=== PATIENT | male | born 1930 | race Caucasian/White ===

== ENCOUNTER 2016-08-17 12:10 | Observation (INO) | payer OTHER ==
--- NOTE | 2016-08-17 12:36 | PDOC ---
History of Present Illness - General Chief Complaint: Syncope/Near Syncope Stated Complaint: NEAR SYNCOPE Time Seen by Provider: 08/17/16 12:17 History Source: Patient Exam Limitations: No Limitations - History of Present Illness Initial Comments: 08/17/16 12:30 Patient was brought in by ambulance, called to [place] where patient was in what he reports as a hot [employer] / [place] when he became dizzy and had a syncopal versus near syncopal episode. Patient was incontinent of bladder and bowel during this episode. Patient denies complete loss of consciousness although reports from EMS stated he did have an LOC. Patient received emergency department alert and oriented 3. Denies chest pain or palpitations, denies nausea or vomiting. Bowel movement within normal recently. Was not aware that he had been incontinent. Denies numbness or tingling to hands or feet, denies any headache or visual changes, able to answer all orientation questions appropriately. Timing/Duration: 1-3 hours Severity: moderate Associated Symptoms: reports: denies symptoms, diaphoresis, syncope. denies: chest pain, cough, fever/chills, headaches, loss of appetite, malaise, nausea/ vomiting, seizure, shortness of breath Past History - Travel Traveled outside of the country in the last 30 days: No Close contact w/someone who was outside of country & ill: No - Past Medical History Allergies/Adverse Reactions: Allergies Allergy/AdvReac Type Severity Reaction Status Date / Time No Known Drug Allergies Allergy Verified 04/08/13 10:45 Home Medications: Ambulatory Orders Aspirin Coated [Ecotrin -] 81 mg PO DAILY 01/14/12 Lisinopril [Prinivil] 10 mg PO DAILY 01/14/12 Metoprolol Succinate [Toprol XL -] 25 mg PO DAILY 01/14/12 Pravastatin Sodium 20 mg PO HS 01/14/12 Clopidogrel Bisulfate [Plavix -] 75 mg PO DAILY #1 09/20/12 Omeprazole [Prilosec (RX)] 20 mg PO DAILY #1 capsule 09/20/12 Silodosin [Rapaflo] 4 mg PO DAILY 04/08/13 Aspirin Coated [Ecotrin -] 81 mg PO DAILY #1 tablet.ec 04/13/13 Clopidogrel Bisulfate [Plavix -] 75 mg PO DAILY #1 tablet 04/13/13 Lisinopril [Prinivil] 10 mg PO DAILY #1 tablet 04/13/13 Metoprolol Succinate [Toprol XL -] 25 mg PO DAILY #1 tab.sr.24h 04/13/13 Pravastatin Sodium [Pravachol -] 20 mg PO HS #7 tablet 04/13/13 Aspirin [ASA -] 81 mg PO DAILY 08/30/15 Metoprolol Succinate [Toprol Xl -] 25 mg PO DAILY 08/30/15 Pravastatin Sodium [Pravachol (Nf)] 20 mg PO HS 09/08/15 Omeprazole Magnesium [Prilosec] 20 mg PO DAILY 08/17/16 HTN: Yes Hypercholesterolemia: Yes - Surgical History Abdominal Surgery: Yes - Psycho/Social/Smoking Cessation Hx Anxiety: No Suicidal Ideation: No Smoking History: Never smoked Have you smoked in the past 12 months: No Hx Alcohol Use: No Drug/Substance Use Hx: No Substance Use Type: None Review of Systems - Review of Systems Able to Perform ROS?: Yes Is the patient limited Welsh proficient: Yes Constitutional: Yes: See HPI, Malaise. No: Symptoms Reported HEENTM: Yes: See HPI, Eye Pain. No: Symptoms Reported Respiratory: Yes: Symptoms reported, See HPI Cardiac (ROS): Yes: See HPI. No: Symptoms Reported, Chest Pain ABD/GI: Yes: Symptoms Reported, See HPI, Diarrhea. No: Nausea : Yes: See HPI. No: Symptoms Reported Musculoskeletal: No: Symptoms Reported Integumentary: Yes: Symptoms Reported Neurological: Yes: Symptoms reported, See HPI, Weakness. No: Headache, Numbness Psychiatric: No: Anxiety All Other Systems: Reviewed and Negative *Physical Exam - Physical Exam General Appearance: Yes: Nourished, Appropriately Dressed, Apparent Distress, Mild Distress, Moderate Distress HEENT: positive: PHANI, Normal ENT Inspection, TMs Normal, Pharynx Normal. negative: Nasal Congestion, Rhinorrhea Neck: positive: Supple. negative: Tender, Lymphadenopathy (R), Lymphadenopathy (L) Respiratory/Chest: positive: Lungs Clear, Normal Breath Sounds. negative: Accessory Muscle Use, Rapid RR, Crackles, Wheezing Cardiovascular: positive: Regular Rhythm, Regular Rate Gastrointestinal/Abdominal: positive: Normal Bowel Sounds, Soft. negative: Tender, Organomegaly, Distended, Guarding, Rebound, Hepatomegaly Musculoskeletal: positive: Normal Inspection. 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 Will obtain labs, EKG, x-rays and CAT scan of head, patient understands will help probable need for admission 08/17/16 17:10 Patient resting quietly in bed, laboratory work returned and relatively normal including CAT scans EKGs and chest x-ray. Discussed this case with Dr. Penaloza who wants patient admitted in to be evaluated by neurology and cardiology. Patient and family has been updated to plan, understands that there are no admission beds placements in the hospital currently and is resting quietly in the holding area *DC/Admit/Observation/Transfer Diagnosis at time of Disposition: Syncope - Discharge Dispostion Condition at time of disposition: Good Admit: Yes
[2016-08-17 13:01] LABS: BASOPHIL 0.5 % (0-2.0); EOSINOPHIL 1.9 % (0-4.5); MCH 33.1 pg (25.7-33.7); MCHC 33.8 g/dl (32.0-35.9); MEAN CELL VOLUME 97.8 fl (80-96); MEAN PLT VOLUME 8.1 fl (7.5-11.1); NEUTROPHILS 75.8 % (42.8-82.8); PLATELET COUNT 222 K/MM3 (134-434); RDW 13.3 % (11.9-15.9)
[2016-08-17 13:16] LABS: INR 1.16 (0.82-1.09); PROTHROMBIN TIME (PATIENT) 12.8 SEC (9.98-11.88)
[2016-08-17 13:33] LABS: ALBUMIN 3.5 g/dl (3.4-5.0); ANION GAP 10 (8-16); CALCIUM 8.1 mg/dL (8.5-10.1); CO2 26 mmol/L (21-32); COCKROFT - GAULT 78.39; CREATININE 0.9 mg/dL (0.7-1.3); GLUCOSE,RANDOM 109 mg/dL (74-106); SGOT/AST 13 U/L (15-37); SGPT/ALT 23 U/L (12-78)
[2016-08-17 13:37] LABS: ALK PHOS 60 U/L (45-117); BILIRUBIN,TOTAL 0.7 mg/dL (0.2-1.0); TOT PROT 6.3 g/dl (6.4-8.2); TROPONIN I < 0.02 ng/ml (0.00-0.05)
--- NOTE | 2016-08-17 17:15 | EKG ---
Test Reason : Blood Pressure : / mmHG Vent. Rate : 056 BPM Atrial Rate : 056 BPM P-R Int : 174 ms QRS Dur : 154 ms QT Int : 494 ms P-R-T Axes : 049 -30 094 degrees QTc Int : 476 ms SINUS BRADYCARDIA LEFT AXIS DEVIATION LEFT BUNDLE BRANCH BLOCK ABNORMAL ECG WHEN COMPARED WITH ECG OF 30-AUG-2015 17:35, NO SIGNIFICANT CHANGE WAS FOUND Confirmed by JOHN OSBORN MD ([id number]) on 08/17/2016 5:15:17 PM Referred By: Confirmed By:JOHN OSBORN MD
[2016-08-17] MEDS: DEXTROSE 5%-0.45% SALINE 1,000 ML IV SCH (17:26)
[2016-08-17 20:20] LABS: TROPONIN I < 0.02 ng/ml (0.00-0.05)
[2016-08-18 07:12] LABS: BASOPHIL 0.6 % (0-2.0); EOSINOPHIL 2.2 % (0-4.5); MCH 33.4 pg (25.7-33.7); MCHC 34.2 g/dl (32.0-35.9); MEAN CELL VOLUME 97.5 fl (80-96); MEAN PLT VOLUME 8.5 fl (7.5-11.1); NEUTROPHILS 71.6 % (42.8-82.8); PLATELET COUNT 233 K/MM3 (134-434); RDW 13.2 % (11.9-15.9); WHITE BLOOD COUNT 7.6 K/mm3 (4.0-10.0)
[2016-08-18 07:40] LABS: ALBUMIN 3.4 g/dl (3.4-5.0); ANION GAP 11 (8-16); CALCIUM 8.5 mg/dL (8.5-10.1); CO2 25 mmol/L (21-32); GLUCOSE,RANDOM 103 mg/dL (74-106)
[2016-08-18 07:43] LABS: ALK PHOS 60 U/L (45-117); BILIRUBIN,TOTAL 0.6 mg/dL (0.2-1.0); COCKROFT - GAULT 78.39; CREATININE 0.9 mg/dL (0.7-1.3); SGOT/AST 12 U/L (15-37); SGPT/ALT 20 U/L (12-78); TOT PROT 6.2 g/dl (6.4-8.2)
--- NOTE | 2016-08-18 09:03 | CON.CARD ---
Consult Consult Specialty:: cardio Referred by:: ovi dubois Reason for Consultation:: syncope - History of Present Illness Chief Complaint: same History of Present Illness: 86 yo male here with syncope while at [employer]. recalls feeling very [employer] b/c large crowd yesterday. around 11:30 am felt generalized weakness and mild LH while standing--sat down and then onlookers called EMS. he doesn't think he passed out briefly at any time. denies any new neuro deficits. denies cp, sob, palpitations. ate usual breakfast (cereal, toast, small cup coffee) with no fluids otherwise in am never happened to him before. he lost BM and urine in underwear--has had accident or near-accident with incontinence at least once in past, never with associated presyncope or MS changes. feels well currently PMH: HTN HPL no cigs - Alcohol/Substance Use Hx Alcohol Use: No - Smoking History Smoking history: Never smoked Have you smoked in the past 12 months: No Home Medications - Allergies Allergies/Adverse Reactions: Allergies Allergy/AdvReac Type Severity Reaction Status Date / Time No Known Allergies Allergy Unverified 08/17/16 12:17 - Home Medications Home Medications: Ambulatory Orders Aspirin [ASA -] 81 mg PO DAILY 08/30/15 Metoprolol Succinate [Toprol Xl -] 25 mg PO DAILY 08/30/15 Pravastatin Sodium [Pravachol (Nf)] 20 mg PO HS 09/08/15 Omeprazole Magnesium [Prilosec] 20 mg PO DAILY 08/17/16 Family Disease History - Family Disease History Family History: Denies (no cmp) Review of Systems - Review of Systems Constitutional: denies: Chills, Fever Eyes: denies: Eye Pain HENT: denies: Nasal Congestion Neck: denies: Stiffness Cardiovascular: denies: Palpitations Respiratory: denies: Orthopnea, PND Gastrointestinal: denies: Diarrhea, Rectal Bleeding Genitourinary: denies: Burning, Hematuria Musculoskeletal: denies: Muscle Pain Integumentary: denies: Rash Neurological: denies: Numbness, Seizure Endocrine: denies: Excessive Sweating Hematology/Lymphatic: denies: Excessive Bleeding Vital Signs: Vital Signs Temperature 98.1 F 08/18/16 02:07 Pulse Rate 69 08/18/16 02:07 Respiratory Rate 16 08/18/16 02:07 Blood Pressure 135/54 08/18/16 02:07 O2 Sat by Pulse Oximetry (%) 100 08/18/16 02:07 Constitutional: Yes: Well Nourished, No Distress Eyes: No: Sclera Icterus HENT: No: Nasal Congestion Neck: No: Decreased ROM Respiratory: Yes: CTA Bilaterally. No: Accessory Muscle Use, Rales, Wheezes Gastrointestinal: Yes: Normal Bowel Sounds. No: Distention, Hepatomegaly, Palpable Mass, Tenderness Cardiovascular: Yes: Regular Rate and Rhythm JVD: No Carotid Bruit: No PMI: Non-Displaced Heart Sounds: Yes: S1, S2. No: Gallop Murmur: No: Systolic Murmur, Diastolic Murmur Musculoskeletal: Yes: Other (No kyphosis) Extremities: No: Cold, Cyanosis Edema: No Peripheral Pulses: 2+ Left Carotid, 2+ Right Carotid, 2+ Left Doralis Pedis, 2+ Right Dorsalis Pedis Integumentary: No: Jaundice Neurological: Yes: Alert, Oriented (x3) Psychiatric: No: Agitated - Other Data Labs, Other Data: CBC, BMP 08/18/16 06:20 08/18/16 06:20 INR, PTT INR 1.16 (0.82-1.09) H 08/17/16 12:33 Troponin, BNP 08/17/16 19:30 Troponin I < 0.02 Troponin, BNP 08/17/16 19:30 Troponin I < 0.02 Laboratory Tests 08/17/16 08/17/16 08/18/16 12:33 19:30 06:20 WBC Hgb Plt Count Sodium 136 Potassium 4.1 Carbon Dioxide 25 BUN 11 Creatinine 0.9 AST 12 L ALT 20 Creatine Kinase 78 70 Troponin I < 0.02 < 0.02 08/18/16 06:20 WBC 7.6 Hgb 13.4 Plt Count 233 Sodium Potassium Carbon Dioxide BUN Creatinine AST ALT Creatine Kinase Troponin I ekg: sinus isai 50s, LBBB (unchanged vs prior) Assessment/Plan syncope: -trop neg x 2 -LBBB on ekg, old (no change vs 2016) -hot [employer] setting, no fluids but + coffee earlier that day--highly suspicious for vasovagal in [place] -no seizure stigmata though BM/urine incontinence noted--? 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
[2016-08-18] MEDS ORDERED: ASPIRIN 81 MG CHEWABLE TABLETS PO SCH (10:00)
[2016-08-18] MEDS: PANTOPRAZOLE 20 MG TABLET (FP) PO SCH (10:00)
[2016-08-18] MEDS: ASPIRIN COATED 81 MG TABLET.EC PO SCH (10:00)
[2016-08-18] MEDS ORDERED: PANTOPRAZOLE 40 MG TABLET (FP) ONE (10:41)
[2016-08-18 16:26] VITALS: BMI 26.9
[2016-08-18] MEDS: DEXTROSE 5%-0.45% SALINE 1,000 ML IV SCH (16:43)
--- NOTE | 2016-08-18 17:00 | HP ---
Admitting History and Physical - Admission Chief Complaint: pt had episode of light headedness while standing in [employer]. it was hot at that time as he stated he remembered every thing. denied any other complaints History Source: Patient, Family Member Limitations to Obtaining History: No Limitations - Past Medical History Cardiovascular: Yes: HTN - Smoking History Smoking history: Never smoked Have you smoked in the past 12 months: No - Alcohol/Substance Use Hx Alcohol Use: No Home Medications - Allergies Allergies/Adverse Reactions: Allergies Allergy/AdvReac Type Severity Reaction Status Date / Time No Known Drug Allergies Allergy Verified 04/08/13 10:45 - Home Medications Home Medications: Ambulatory Orders Aspirin Coated [Ecotrin -] 81 mg PO DAILY 01/14/12 Lisinopril [Prinivil] 10 mg PO DAILY 01/14/12 Metoprolol Succinate [Toprol XL -] 25 mg PO DAILY 01/14/12 Pravastatin Sodium 20 mg PO HS 01/14/12 Clopidogrel Bisulfate [Plavix -] 75 mg PO DAILY #1 09/20/12 Omeprazole [Prilosec (RX)] 20 mg PO DAILY #1 capsule 09/20/12 Silodosin [Rapaflo] 4 mg PO DAILY 04/08/13 Aspirin Coated [Ecotrin -] 81 mg PO DAILY #1 tablet.ec 04/13/13 Clopidogrel Bisulfate [Plavix -] 75 mg PO DAILY #1 tablet 04/13/13 Lisinopril [Prinivil] 10 mg PO DAILY #1 tablet 04/13/13 Metoprolol Succinate [Toprol XL -] 25 mg PO DAILY #1 tab.sr.24h 04/13/13 Pravastatin Sodium [Pravachol -] 20 mg PO HS #7 tablet 04/13/13 Aspirin [ASA -] 81 mg PO DAILY 08/30/15 Metoprolol Succinate [Toprol Xl -] 25 mg PO DAILY 08/30/15 Pravastatin Sodium [Pravachol (Nf)] 20 mg PO HS 09/08/15 Omeprazole Magnesium [Prilosec] 20 mg PO DAILY 08/17/16 Family Disease History - Family Disease History Family History: Unremarkable Review of Systems - Review of Systems Constitutional: reports: No Symptoms Physical Examination Vital Signs: Vital Signs Temperature 97.7 F 08/18/16 15:50 Pulse Rate 73 08/18/16 15:50 Respiratory Rate 18 08/18/16 15:50 Blood Pressure 137/75 08/18/16 15:50 O2 Sat by Pulse Oximetry (%) 97 08/18/16 15:50 Assessment/Plan neuro to see pt today d/c in am changed bp med so that bp and hr does not drop
--- NOTE | 2016-08-18 17:32 | CON.NEURO ---
Consult Consult Specialty:: Neurology Referred by:: Dr. Chino Cardenas Reason for Consultation:: Patient had near syncope in [place] - History of Present Illness Chief Complaint: I was in [employer] and felt ill History of Present Illness: Patient was in [employer] on Thursday and recalls feeling hot. He says that he was standing, felt woozy and that his legs were wobbly and fell to his chair and felt himself evacuate fecal matter. He felt it coming out and recalls feeling embarrassed. He did not lose consciousness. EMS was called and by the time he arrived in the ER he felt better. He had no sensory or motor disturbance. he had one prior occurrence similar several years ago. He has felt fine since. - Past Medical History Cardio/Vascular: Yes: HTN - Alcohol/Substance Use Hx Alcohol Use: No - Smoking History Smoking history: Never smoked Have you smoked in the past 12 months: No Home Medications - Allergies Allergies/Adverse Reactions: Allergies Allergy/AdvReac Type Severity Reaction Status Date / Time No Known Drug Allergies Allergy Verified 04/08/13 10:45 - Home Medications Home Medications: Ambulatory Orders Aspirin Coated [Ecotrin -] 81 mg PO DAILY 01/14/12 Lisinopril [Prinivil] 10 mg PO DAILY 01/14/12 Metoprolol Succinate [Toprol XL -] 25 mg PO DAILY 01/14/12 Pravastatin Sodium 20 mg PO HS 01/14/12 Clopidogrel Bisulfate [Plavix -] 75 mg PO DAILY #1 09/20/12 Omeprazole [Prilosec (RX)] 20 mg PO DAILY #1 capsule 09/20/12 Silodosin [Rapaflo] 4 mg PO DAILY 04/08/13 Aspirin Coated [Ecotrin -] 81 mg PO DAILY #1 tablet.ec 04/13/13 Clopidogrel Bisulfate [Plavix -] 75 mg PO DAILY #1 tablet 04/13/13 Lisinopril [Prinivil] 10 mg PO DAILY #1 tablet 04/13/13 Metoprolol Succinate [Toprol XL -] 25 mg PO DAILY #1 tab.sr.24h 04/13/13 Pravastatin Sodium [Pravachol -] 20 mg PO HS #7 tablet 04/13/13 Aspirin [ASA -] 81 mg PO DAILY 08/30/15 Metoprolol Succinate [Toprol Xl -] 25 mg PO DAILY 08/30/15 Pravastatin Sodium [Pravachol (Nf)] 20 mg PO HS 09/08/15 Omeprazole Magnesium [Prilosec] 20 mg PO DAILY 08/17/16 Review of Systems - Review of Systems Constitutional: reports: No Symptoms Eyes: reports: No Symptoms HENT: reports: No Symptoms Physical Exam-Neuro Vital Signs: Vital Signs Temperature 97.7 F 08/18/16 15:50 Pulse Rate 73 08/18/16 15:50 Respiratory Rate 18 08/18/16 15:50 Blood Pressure 137/75 08/18/16 15:50 O2 Sat by Pulse Oximetry (%) 97 08/18/16 15:50 Constitutional: Yes: Well Nourished, No Distress, Calm Labs: INR, PTT INR 1.16 (0.82-1.09) H 08/17/16 12:33 - Neuro Exam Cranial Nerves II-XII Intact: Yes DTR's: 0 Left Achilles, 0 Right Achilles, 2+ Left Bicep, 2+ Right Bicep, 2+ Left Tricep, 2+ Right Tricep, 2+ Left Brachioradialis, 2+ Right Brachioradialis Babinski: Absent Response to light touch: Normal Response to pain prick: Normal Coordination: Normal: Finger to Nose (All normal), Heel to Arora, Precision Finger Tap, Pronator Drift Motor Strength: 5/5: Left Arm, Right Arm, Left Leg, Right Leg Gait: Normal NIH Stroke Scale - Total Score NIH Stroke Scale Score: 0 Imaging - Results Cat Scan: Report Reviewed (unremarkable Unable to view image on PACS), Image Reviewed Problem List - Problems (1) Syncope Assessment/Plan: Sounds like near syncope rather than TIA or seizure. Head CT normal and I wouldn't pursue further neurological workup at this time. I have no objection to discharge at this time. Code(s): R55 - SYNCOPE AND COLLAPSE Assessment/Plan As above, I don't think that he had a seizure or TIA/cerebrovascular event and I have no objection to discharge from the hospital at this time. I don't think further neurologic evaluation, beyond the initial Head CT is indicated at this time. Thanks
[2016-08-19 09:51] VITALS: BP 148/82; PULSE 74; TEMP 98
[2016-08-19] MEDS: ASPIRIN COATED 81 MG TABLET.EC PO SCH (09:57)
[2016-08-19] MEDS: PANTOPRAZOLE 20 MG TABLET (FP) PO SCH (09:57)
[2016-08-19] MEDS ORDERED: PANTOPRAZOLE 20 MG TABLET (FP) PO SCH (10:00)
[2016-08-19] MEDS ORDERED: amLODIPine BESYLATE 2.5 MG TABLET (FP) PO SCH (10:00)
--- NOTE | 2016-08-19 10:29 | DS ---
Physical Examination Vital Signs: Vital Signs Temperature 98 F 08/19/16 09:50 Pulse Rate 74 08/19/16 09:50 Respiratory Rate 14 08/19/16 09:50 Blood Pressure 148/82 08/19/16 09:50 O2 Sat by Pulse Oximetry (%) 98 08/19/16 07:32 Constitutional: Yes: Well Nourished Eyes: Yes: WNL HENT: Yes: WNL Neck: Yes: WNL Cardiovascular: Yes: WNL Respiratory: Yes: WNL Gastrointestinal: Yes: WNL ...Rectal Exam: Yes: Deferred Renal/: Yes: WNL Breast(s): Yes: WNL Musculoskeletal: Yes: WNL Extremities: Yes: WNL Edema: No Integumentary: Yes: WNL Neurological: Yes: Oriented ...Motor Strength: WNL Psychiatric: Yes: Oriented Discharge Summary Reason For Visit: PRE-SYNCOPE Current Active Problems Syncope (Acute) - Instructions Referrals: Chino Cardenas MD [Primary Care Provider] - - Home Medications Comprehensive Discharge Medication List: Ambulatory Orders Aspirin Coated [Ecotrin -] 81 mg PO DAILY 01/14/12 Lisinopril [Prinivil] 10 mg PO DAILY 01/14/12 Metoprolol Succinate [Toprol XL -] 25 mg PO DAILY 01/14/12 Pravastatin Sodium 20 mg PO HS 01/14/12 Clopidogrel Bisulfate [Plavix -] 75 mg PO DAILY #1 09/20/12 Omeprazole [Prilosec (RX)] 20 mg PO DAILY #1 capsule 09/20/12 Silodosin [Rapaflo] 4 mg PO DAILY 04/08/13 Aspirin Coated [Ecotrin -] 81 mg PO DAILY #1 tablet.ec 04/13/13 Clopidogrel Bisulfate [Plavix -] 75 mg PO DAILY #1 tablet 04/13/13 Lisinopril [Prinivil] 10 mg PO DAILY #1 tablet 04/13/13 Metoprolol Succinate [Toprol XL -] 25 mg PO DAILY #1 tab.sr.24h 04/13/13 Pravastatin Sodium [Pravachol -] 20 mg PO HS #7 tablet 04/13/13 Aspirin [ASA -] 81 mg PO DAILY 08/30/15 Metoprolol Succinate [Toprol Xl -] 25 mg PO DAILY 08/30/15 Pravastatin Sodium [Pravachol (Nf)] 20 mg PO HS 09/08/15 Omeprazole Magnesium [Prilosec] 20 mg PO DAILY 08/17/16
== END 2016-08-19 12:00 | disposition home or self-care (01) ==
LOC: JER 12:10 → JERBED 14:42 → INTOOBSV 14:42 → MERGE 14:42 → UNDOADMOB 14:42 → JERBED 08-18 12:59 → J4W 08-18 14:53
PROVIDERS: ADMIT Internal Medicine; ATTEND Family Medicine
DX: R55 Syncope and collapse (principal); I10 Essential (primary) hypertension; E78.00 Pure hypercholesterolemia, unspecified; Z79.52 Long term (current) use of systemic steroids; I44.7 Left bundle-branch block, unspecified
CPT/HCPCS: 36415; 70450-TC; 71010-TC; 80053; 82550; 84484; 85025; 85610; 93005; 93010; 93306-TC; 99285-25; G0378

== ENCOUNTER 2016-12-02 16:27 | Inpatient (IN) | payer OTHER ==
--- NOTE | 2016-12-02 18:07 | PDOC ---
History of Present Illness - History of Present Illness Initial Comments: 12/02/16 19:00 Patient is an 86 year old male with significant medical hx of arthritis, HTN, HLD, brought in by EMS, who is presenting to the ED with complaint of pervasive joint pain for one week. The patient complains of pain to his back, hips, knees and elbows. He reports feeling stiff and endorses having difficulty moving his joints. The patient states hes taken tylenol for pain and he is requesting stronger pain medication. Denies any recent trauma or heavy lifting. Patient lives at home; he is ambulatory and uses a walker and a cane. Patient is accompanied by family members who report that the patient was very sick three days ago with heavy diarrhea. 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) CHF: No Dementia: No Diabetes: No GI Disorders: Yes (ACID REFLUX) Disorders: No HTN: Yes Hypercholesterolemia: Yes Liver Disease: No Seizures: No Thyroid Disease: No - Surgical History Abdominal Surgery: Yes Appendectomy: No Cardiac Surgery: Yes (STENT) Cholecystectomy: No Lung Surgery: No Neurologic Surgery: No Orthopedic Surgery: Yes (TOTAL KNEE REPLACEMENT) - Psycho/Social/Smoking Cessation Hx Anxiety: No Suicidal Ideation: No Smoking History: Never smoked Have you smoked in the past 12 months: No If you are a former smoker, when did you quit?: 35YRS AGO Information on smoking cessation initiated: No Hx Alcohol Use: No Drug/Substance Use Hx: No Substance Use Type: None Hx Substance Use Treatment: No <Corinna Martinez - Last Filed: 12/03/16 02:37> - Past Medical History Allergies/Adverse Reactions: Allergies Allergy/AdvReac Type Severity Reaction Status Date / Time No Known Drug Allergies Allergy Verified 04/08/13 10:45 Home Medications: Ambulatory Orders Aspirin Coated [Ecotrin -] 81 mg PO DAILY 01/14/12 Lisinopril [Prinivil] 10 mg PO DAILY 01/14/12 Omeprazole [Prilosec (RX)] 20 mg PO DAILY #1 capsule 09/20/12 Metoprolol Succinate [Toprol XL -] 25 mg PO DAILY #1 tab.sr.24h 04/13/13 Pravastatin Sodium [Pravachol (Nf)] 20 mg PO HS 09/08/15 Review of Systems - Review of Systems Comments:: 12/02/16 19:00 CONSTITUTIONAL: Absent: fever, chills, diaphoresis, generalized weakness, malaise, loss of appetite HEENT: Absent: rhinorrhea, nasal congestion, throat pain, throat swelling, difficulty swallowing, mouth swelling, ear pain, eye pain, visual changes CARDIOVASCULAR: Absent: chest pain, syncope, palpitations, irregular heart rate, lightheadedness , peripheral edema RESPIRATORY: Absent: cough, shortness of breath, dyspnea with exertion, orthopnea, wheezing, stridor, hemoptysis GASTROINTESTINAL: Present: diarrhea Absent: abdominal pain, abdominal distension, nausea, vomiting, constipation, melena, hematochezia GENITOURINARY: Absent: dysuria, frequency, urgency, hesitancy, hematuria, flank pain, genital pain MUSCULOSKELETAL: Present: joint pain to hips, elbows, knees, and back Absent: myalgia, joint swelling SKIN: Absent: rash, itching, pallor HEMATOLOGIC/IMMUNOLOGIC: Absent: easy bleeding, easy bruising, lymphadenopathy, frequent infections ENDOCRINE: Absent: unexplained weight gain, unexplained weight loss, heat intolerance, cold intolerance NEUROLOGIC: Absent: headache, focal weakness or paresthesia, dizziness, unsteady gait, seizure, mental status changes, bladder or bowel incontinence. PSYCHIATRIC: Absent: anxiety, depression, suicidal or homicidal ideation, hallucinations <Mya Olguin - Last Filed: 12/03/16 00:39> *Physical Exam - Vital Signs Last Vital Signs Temp Pulse Resp BP Pulse Ox 98.5 F 85 22 140/86 100 12/02/16 16:39 12/02/16 16:36 12/02/16 16:36 12/02/16 16:36 12/02/16 16:36 - Physical Exam Comments: 12/02/16 19:02 GENERAL: Well developed, well nourished. Awake and alert. No acute distress. HEENT: Normocephalic, atraumatic. PERRLA, EOMI. No conjunctival pallor. Sclera are non- icteric. Moist mucous membranes. Oropharynx is clear. NECK: Supple. Full ROM. No JVD. Carotid pulses 2+ and symmetric, without bruits. No thyromegaly. No lymphadenopathy. CARDIOVASCULAR: Regular rate and rhythm. No murmurs, rubs, or gallops. Distal pulses are 2+ and symmetric. PULMONARY: No evidence of respiratory distress. Lungs clear to auscultation bilaterally. No wheezing, rales or rhonchi. ABDOMINAL: Soft. Non-tender. Non-distended. No rebound or guarding. No organomegaly. Normoactive bowel sounds. MUSCULOSKELETAL: Limited ROM at joints due to pain. No bony deformities or tenderness. No CVA tenderness. EXTREMITIES: No cyanosis. No clubbing. No edema. No calf tenderness. SKIN: Warm and dry. Normal capillary refill. No rashes. No jaundice. NEUROLOGICAL: AAO x 3. Conversant. Cranial nerves 2-12 intact. Normal speech. PSYCHIATRIC: Cooperative. Good eye contact. Appropriate mood and affect. <Mya Olguin - Last Filed: 12/03/16 00:39> - Vital Signs Last Vital Signs Temp Pulse Resp BP Pulse Ox 98.5 F 85 22 140/86 100 12/02/16 16:39 12/02/16 16:36 12/02/16 16:36 12/02/16 16:36 12/02/16 16:36 <Corinna Martinez - Last Filed: 12/03/16 02:37> Heart Score/ECG Review #1 12/02/16 19:04 Normal sinus rhythm at 93 bpm Left axis deviation Left bundle branch block Abnormal ECG <Mya Olguin - Last Filed: 12/03/16 00:39> ED Treatment Course - LABORATORY CBC & Chemistry Diagram: 12/02/16 18:38 12/02/16 18:38 - RADIOLOGY Radiograph Interpretation: 12/02/16 22:23 Chest X-Ray Impression: No acute disease. Reported By: Stephan Womack MD 12/03/16 00:39 Director Digital Advertising: (lori) Report Date: 12/02/2016 23:34:00 Report Status: Preliminary Begin of Report Content Referring Physician: Corinna Martinez Patient Name: Joon Bowens THIS IS A PRELIMINARY REPORT FROM [facility] EXAM: CT abdomen and pelvis without contrast IMAGES: 524 INDICATION: Abdominal pain DATE OF SERVICE: 2016-12-02 23:34:12.0 COMPARISON: none FINDINGS: Bibasilar dependent atelectasis is noted. The visualized cardiac chambers are normal size and configuration. Coronary calcifications. A tiny gallstones but no gallbladder inflammation or biliary duct dilation. Normal unenhanced liver, pancreas, spleen, adrenal glands and kidneys. The stomach and small bowel are normal. There is diffuse liquids without colonic wall thickening , suggesting a diarrheal illness. There is no aortic aneurysm. There is no significant retroperitoneal lymphadenopathy. Small fat containing umbilical hernia is noted. There is an appendicular, but no evidence of appendicitis. The urinary bladder and prostate gland are normal. No pelvic free fluid is identified. There is no significant pelvic lymphadenopathy. IMPRESSION: Possible diarrheal illness without colonic wall inflammation Tiny gallstones. THIS DOCUMENT HAS BEEN ELECTRONICALLY SIGNED Chadwick Cuevas MD 12/03/2016 00:20 SANJUANA Ross. Please call Imaging Manufacturing Team Member [phone] ([phone]) with questions. End of Report Content - Medications Given in the ED: ED Medications Discontinued Medications Generic Name Dose Route Start Last Admin Trade Name Freq PRN Reason Stop Dose Admin Morphine Sulfate 2 mg 12/02/16 18:32 12/02/16 18:49 Morphine Injection - IVPUSH 12/02/16 18:33 2 mg ONCE ONE Administration Naproxen 500 mg 12/02/16 18:33 12/02/16 18:49 Naprosyn - PO 12/02/16 18:34 500 mg ONCE ONE Administration <Mya Olguin - Last Filed: 12/03/16 00:39> - LABORATORY CBC & Chemistry Diagram: 12/02/16 18:38 12/03/16 01:10 <Corinna Martinez - Last Filed: 12/03/16 02:37> Medical Decision Making - Medical Decision Making 12/03/16 02:34 86-year-old male whose initial complaint was joint pain for one week was later found to have a positive troponin, elevated leukocytosis, to be hypokalemic -Initially the patient was by himself and he was a poor historian. He has dementia. Past medical history significant for arthritis and hypertension. -Patient denied any fever, cough, vomiting, chest pain or shortness of breath. He did state he had joint pain and diarrhea several days ago However, later in his family showed up and said that about 2 days ago. He is very sick with fecal incontinence and a diarrheal illness EKG is a left bundle branch block and this is unchanged from his prior EKG -Troponin was elevated to 20, CPK was above 4000 Patient was given aspirin. Troponin was repeated and it is on the downward trend Dr. Vega will be audit consultant The surface source of his leukocytosis is not profound. Chest x-ray didn't show any infiltrates, his urine is nitrate negative with 7 WBCs. CAT scan did not show any acute pelvic or abdominal pathology. Patient has not had any diarrhea since his arrival, he does not have a fever Case discussed with Dr. Chino Vega the patient was admitted to telemetry <Corinna Martinez - Last Filed: 12/03/16 02:37> *DC/Admit/Observation/Transfer - Attestations Scribe Attestion: 12/02/16 19:05 Documentation prepared by Mya Olguin, acting as certified medical coder for Corinna Martinez MD. <Mya Olguin - Last Filed: 12/03/16 00:39> - Discharge Dispostion Admit: Yes <Corinna Martinez - Last Filed: 12/03/16 02:37> Diagnosis at time of Disposition: Elevated troponin level, Hypokalemia Joint pain Qualifiers: Joint pain location: knee Laterality: bilateral Qualified Code(s): M25.561 - Pain in right knee Dementia Qualifiers: Dementia type: unspecified type Dementia behavioral disturbance: without behavioral disturbance Qualified Code(s): F03.90 - Unspecified dementia without behavioral disturbance Leukocytosis Qualifiers: Leukocytosis type: other Qualified Code(s): D72.828 - Other elevated white blood cell count - Referrals Referrals: Fernanda Stratton MD [Primary Care Provider] -
[2016-12-02] MEDS ORDERED: morphine CARPU-JECT 2 MG/1 ML DISP.SYRIN IVPUSH ONE (18:32)
[2016-12-02] MEDS ORDERED: NAPROXEN 500 MG TABLET (FP) PO ONE (18:33)
[2016-12-02] MEDS ORDERED: morphine CARPU-JECT 4 MG/1 ML DISP.SYRIN ONE (18:42)
[2016-12-02] MEDS ORDERED: NAPROXEN 500 MG TABLET (FP) ONE (18:43)
[2016-12-02 19:49] LABS: BASOPHIL 0.1 % (0-2.0); MCH 32.2 pg (25.7-33.7); MCHC 33.2 g/dl (32.0-35.9); MEAN CELL VOLUME 96.8 fl (80-96); MEAN PLT VOLUME 9.6 fl (7.5-11.1); NEUTROPHILS 90.5 % (42.8-82.8); PLATELET COUNT 191 K/MM3 (134-434); RDW 12.8 % (11.9-15.9); WHITE BLOOD COUNT 19.7 K/mm3 (4.0-10.0)
[2016-12-02] MEDS ORDERED: SODIUM CHLORIDE 1,000 ML IV STA (20:07)
[2016-12-02 20:15] LABS: ALBUMIN 3.6 g/dl (3.4-5.0); ANION GAP 13 (8-16); BILIRUBIN,TOTAL 0.9 mg/dL (0.2-1.0); CALCIUM 8.9 mg/dL (8.5-10.1); CO2 25 mmol/L (21-32); CREATININE 1.2 mg/dL (0.7-1.3); GLUCOSE,RANDOM 75 mg/dL (74-106); SGOT/AST 234 U/L (15-37); SGPT/ALT 50 U/L (12-78); TOT PROT 6.9 g/dl (6.4-8.2)
[2016-12-02 20:16] LABS: ALK PHOS 61 U/L (45-117)
[2016-12-02] MEDS ORDERED: POTASSIUM CHLORIDE TABS 20 MEQ TABLET.ER (FP) PO ONE (20:58)
[2016-12-02] MEDS ORDERED: POTASSIUM CHLORIDE ORAL LIQUID 20 MEQ/15 ML ONE (21:10)
[2016-12-02 22:12] LABS: TROPONIN I 20.4 ng/ml (0.00-0.05)
[2016-12-02] MEDS ORDERED: ASPIRIN 81 MG CHEWABLE TABLETS PO ONE (22:55)
[2016-12-03] MEDS ORDERED: ASPIRIN 81 MG CHEWABLE TABLETS ONE (01:17)
[2016-12-03 01:22] LABS: URINE APPEARANCE CLEAR; URINE BILIRUBIN NEGATIVE (NEGATIVE); URINE BLOOD 3+ (NEGATIVE); URINE COLOR AMBER; URINE GLUCOSE (UA) NEGATIVE (NEGATIVE); URINE KETONE NEGATIVE (NEGATIVE); URINE LEUK ESTERASE NEGATIVE (NEGATIVE); URINE NITRITE NEGATIVE (NEGATIVE); URINE UROBILINOGEN NEGATIVE mg/dL (0.2-1.0)
[2016-12-03 01:23] LABS: URINE PROTEIN 2+ (NEGATIVE)
[2016-12-03 01:30] LABS: URINE BACTERIA FEW /hpf (NONE SEEN); URINE RBC 1 /hpf (0-3); URINE WBC 7 /hpf (3-5)
[2016-12-03 01:58] LABS: TROPONIN I 18.93 ng/ml (0.00-0.05)
[2016-12-03] MEDS ORDERED: SODIUM CHLORIDE 0.45% 1,000 ML IV SCH (02:00)
[2016-12-03 02:20] LABS: ANION GAP 11 (8-16); CALCIUM 8.1 mg/dL (8.5-10.1); CO2 21 mmol/L (21-32); CREATININE 0.9 mg/dL (0.7-1.3); GLUCOSE,RANDOM 109 mg/dL (74-106)
[2016-12-03] MEDS ORDERED: metroNIDAZOLE 250 MG TABLET PO SCH (05:15)
[2016-12-03 05:25] VITALS: BMI 26.9
[2016-12-03] MEDS ORDERED: HEPARIN NA (PORCINE) 5,000 UNITS/ML 1ML VIAL IVPUSH PRN (09:45)
[2016-12-03] MEDS ORDERED: CLOPIDOGREL BISULFATE 75 MG TABLET (FP) PO ONE (10:00)
[2016-12-03] MEDS ORDERED: LISINOPRIL 10 MG TABLET (FP) PO SCH (10:00)
[2016-12-03] MEDS ORDERED: METOPROLOL SUCCINATE 25 MG TAB.SR.24H (FP) PO SCH (10:00)
[2016-12-03] MEDS ORDERED: PT OWN MED DRAWER 7, Y5N ONE (10:33)
[2016-12-03] MEDS: ASPIRIN 81 MG CHEWABLE TABLETS PO SCH (10:34)
[2016-12-03] MEDS: PANTOPRAZOLE 20 MG TABLET (FP) PO SCH (10:35)
--- NOTE | 2016-12-03 10:52 | CON.CARD ---
Cardiology Consult (text) - Consultation Consultation Note: - History of Present Illness Chief Complaint: myalgias, diarrhea History of Present Illness: 86 yo male here with several days of myalgias and diarrhea no cp sob palps dizzy loc pnd orthopnea le edema found to have likely colitis as well as trop of 20 in ER currently main complaint is myalgias no hx cad/mi PMH: HTN HPL knee surgery no cigs - Alcohol/Substance Use Hx Alcohol Use: No - Smoking History Smoking history: Never smoked Have you smoked in the past 12 months: No Home Medications - Allergies Allergies/Adverse Reactions: Allergies Allergy/AdvReac Type Severity Reaction Status Date / Time No Known Drug Allergies Allergy Verified 04/08/13 10:45 - Home Medications Home Medications Medication Instructions Recorded Aspirin Coated [Ecotrin -] 81 mg PO DAILY 01/14/12 Lisinopril [Prinivil] 10 mg PO DAILY 01/14/12 Omeprazole [Prilosec (RX)] 20 mg PO DAILY #1 capsule 09/20/12 Metoprolol Succinate [Toprol XL -] 25 mg PO DAILY #1 tab.sr.24h 04/13/13 Pravastatin Sodium [Pravachol (Nf)] 20 mg PO HS 09/08/15 Family Disease History - Family Disease History Family History: Denies (no cmp) Review of Systems - Review of Systems Constitutional: denies: Chills, Fever Eyes: denies: Eye Pain HENT: denies: Nasal Congestion Neck: denies: Stiffness Cardiovascular: denies: Palpitations Respiratory: denies: Orthopnea, PND Gastrointestinal: denies: Rectal Bleeding Genitourinary: denies: Burning, Hematuria Integumentary: denies: Rash Neurological: denies: Numbness, Seizure Endocrine: denies: Excessive Sweating Hematology/Lymphatic: denies: Excessive Bleeding Vital Signs: Vital Signs Temp 98.1 F 12/03/16 05:44 Pulse 82 12/03/16 08:00 Resp 18 12/03/16 08:00 BP 130/66 12/03/16 08:00 Pulse Ox 96 12/03/16 08:00 Intake & Output 12/02/16 12/02/16 12/03/16 11:59 23:59 11:59 Intake Total 75 Balance 75 Weight 200 lb 198 lb 4 oz Intake: IV 75 1/2 Normal Saline 1,000 75 ml @ 75 mls/hr IV [facility] Rx#:[id number] Other: Voiding Method Incontinent Incontinent # Unmeasured Voids Void 1 Bowel Movement No Height 6 ft 6 ft Body Mass Index (BMI) 27.1 26.9 Weight Measurement Method Built in [facility] Weight Measurement Method Est/Stated by Patient Constitutional: Yes: Well Nourished, No Distress Eyes: No: Sclera Icterus HENT: No: Nasal Congestion Neck: No: Decreased ROM Respiratory: Yes: CTA Bilaterally. No: Accessory Muscle Use, Rales, Wheezes Gastrointestinal: Yes: Normal Bowel Sounds. No: Distention, Hepatomegaly, Palpable Mass, Tenderness Cardiovascular: Yes: Regular Rate and Rhythm JVD: No Carotid Bruit: No PMI: Non-Displaced Heart Sounds: Yes: S1, S2. No: Gallop Murmur: No: Systolic Murmur, Diastolic Murmur Extremities: No: Cold, Cyanosis Edema: No Peripheral Pulses: 2+ Left Carotid, 2+ Right Carotid, 2+ Left Doralis Pedis, 2+ Right Dorsalis Pedis Integumentary: No: Jaundice diaphoresis Neurological: Yes: Alert, Oriented (x3) Psychiatric: No: Agitated - Other Data Labs, Other Data: Laboratory Last Values WBC 19.7 K/mm3 (4.0-10.0) H D 12/02/16 18:38 RBC 4.64 M/mm3 (4.00-5.60) 12/02/16 18:38 Hgb 14.9 GM/dL (11.7-16.9) D 12/02/16 18:38 Hct 44.9 % (35.4-49) 12/02/16 18:38 MCV 96.8 fl (80-96) H 12/02/16 18:38 MCH 32.2 pg (25.7-33.7) 12/02/16 18:38 MCHC 33.2 g/dl (32.0-35.9) 12/02/16 18:38 RDW 12.8 % (11.9-15.9) 12/02/16 18:38 Plt Count 191 K/MM3 (134-434) 12/02/16 18:38 MPV 9.6 fl (7.5-11.1) D 12/02/16 18:38 Neutrophils % 90.5 % (42.8-82.8) H D 12/02/16 18:38 Lymphocytes % 2.3 % (8-40) L D 12/02/16 18:38 Monocytes % 7.1 % (3.8-10.2) 12/02/16 18:38 Eosinophils % 0.0 % (0-4.5) D 12/02/16 18:38 Basophils % 0.1 % (0-2.0) 12/02/16 18:38 Sodium 131 mmol/L (136-145) L 12/03/16 01:10 Potassium 3.6 mmol/L (3.5-5.1) 12/03/16 01:10 Chloride 99 mmol/L (98-107) 12/03/16 01:10 Carbon Dioxide 21 mmol/L (21-32) 12/03/16 01:10 Anion Gap 11 (8-16) 12/03/16 01:10 BUN 27 mg/dL (7-18) H 12/03/16 01:10 Creatinine 0.9 mg/dL (0.7-1.3) D 12/03/16 01:10 Creat Clearance w eGFR 57.68 (>60) 12/02/16 18:38 Random Glucose 109 mg/dL (74-106) H D 12/03/16 01:10 Calcium 8.1 mg/dL (8.5-10.1) L 12/03/16 01:10 Total Bilirubin 0.9 mg/dL (0.2-1.0) D 12/02/16 18:38 AST 234 U/L (15-37) H D 12/02/16 18:38 ALT 50 U/L (12-78) D 12/02/16 18:38 Alkaline Phosphatase 61 U/L (45-117) 12/02/16 18:38 Creatine Kinase 3431 IU/L (39-308) H D 12/03/16 01:10 Creatine Kinase Index 1.1 % (0.0-5.0) 12/03/16 01:10 CK-MB (CK-2) 39.203 ng/ml (0.5-3.6) H 12/03/16 01:10 CK-MB (CK-2) Rel Index Cancelled 12/02/16 18:40 Troponin I 18.93 ng/ml (0.00-0.05) H* 12/03/16 01:10 Total Protein 6.9 g/dl (6.4-8.2) 12/02/16 18:38 Albumin 3.6 g/dl (3.4-5.0) 12/02/16 18:38 Urine Color Lisette 12/03/16 01:10 Urine Appearance Clear 12/03/16 01:10 Urine pH 5.0 (5.0-8.0) 12/03/16 01:10 Urine Protein 2+ (NEGATIVE) H 12/03/16 01:10 Urine Glucose (UA) Negative (NEGATIVE) 12/03/16 01:10 Urine Ketones Negative (NEGATIVE) 12/03/16 01:10 Urine Blood 3+ (NEGATIVE) H 12/03/16 01:10 Urine Nitrite Negative (NEGATIVE) 12/03/16 01:10 Urine Bilirubin Negative (NEGATIVE) 12/03/16 01:10 Urine Urobilinogen Negative mg/dL (0.2-1.0) 12/03/16 01:10 Ur Leukocyte Esterase Negative (NEGATIVE) 12/03/16 01:10 Urine RBC 1 /hpf (0-3) 12/03/16 01:10 Urine WBC 7 /hpf (3-5) 12/03/16 01:10 Urine Bacteria Few /hpf (NONE SEEN) 12/03/16 01:10 tele: sr echo 08/2016: low nl lvef, nl rv, mild tr cxr: clear lungs ecg 12/02/16: sr, nl pr, old lbbb est cct 35 mins Assessment/Plan NSTEMI: -pt w/o cardiac symptoms but troponin elevated at 20 with repeat 18 -ecg with old lbbb -given the high trop values this seems more likely to be ACS/NSTEMI, thus will treat with asa/plavix, hep gtt -check echo for new wma's -monitor on tele -trend ce's -cont sunday, bb, statin -will need ischemic eval after infectious issues resolved HTN: -controlled, continue sunday, bb HPL: -cont statin margarita -slightly prerenal on initial labs, likely from diarrhea -cr improved with ivfs, monitor myalgias, diarrhea: -elevated wbc, possible infectious diarrhea -abx per id/pmd
[2016-12-03 11:09] LABS: INR 1.27 (0.82-1.09)
[2016-12-03 11:11] LABS: ACTIVATED PTT 33.3 SECONDS (26.9-34.4)
--- NOTE | 2016-12-03 11:33 | CONSULT ---
Consultation: REQUESTING PROVIDER: CONSULT REQUEST: We have been asked to medically evaluate this patient for polyarthropathy. HISTORY OF PRESENT ILLNESS: Pt is a 86 yo man w/ pmh of arthritis (OA vs RA?), HTN, HLD, who was BIBEMS from home due to inability to walk in the setting of progressive BL LE weakness of a few months duration. At baseline, pt lives at home w/ his and is functional in all ADLs, able to ambulate w/ a walking cane and/or walker. A few months prior to this admission, pt notes a progressive weakness in his legs, which continued to worsen, becoming significantly worse over the past few weeks. He also endorses weakness in his arms as well. In addition to his extremity weakness, pt endorses progressive joint stiffness/pain with movement beginning a few weeks prior to admission per patient and worsening signficantly over the past week. Pt activated EMS yesterday AM when he was unable to ambulate due to his LE weakness. He denies fever, chills, CP, cough, SOB, N/V, rashes, dysuria, vision changes or KIRBY. He endorses joint pain/stiffness BL in knees, hips, elbows and shoulders, as well as lower back. He recently had a bout of severe diarrhea 3 days prior to current admission, but has since resolved. He endorses a hx of an unspecified arthritis diagnosed many years ago but could provide no other details (likely OA). No hx of IBD, STIs, gout, psoriasis or autoimmune conditions. He denies any recent travel, sick contacts, trauma and is not sexually active. He has never been hospitalized for joint pain or any prior infections before. ED course notable for: 1. Troponin of ~20, CK 4500 - managed for ACS 2. WBC 19.7 3. 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 Cousin w/ bipolar disorder. Sister, brothers x2 of lung cancer. Social Hx No drinking, drug use. Prior smoker 50 years ago, 1 ppd, unknown duration. Lives at home w/ . Not currently sexually active w/ no prior STIs. Indepedent in most ADLs, w/ [employer]. At baseline, ambulates w/ walker and/or cane. REVIEW OF SYSTEMS: CONSTITUTIONAL: generalized weakness Absent: fever, chills, diaphoresis, malaise, loss of appetite, weight change HEENT: rhinorrhea Absent: nasal congestion, throat pain, throat swelling, difficulty swallowing, mouth swelling, ear pain, eye pain, visual changes CARDIOVASCULAR: irregular heart rate Absent: chest pain, syncope, palpitations, lightheadedness, peripheral edema RESPIRATORY: Absent: cough, shortness of breath, dyspnea with exertion, orthopnea, wheezing, hemoptysis GASTROINTESTINAL: diarrhea Absent: abdominal pain, abdominal distension, nausea, vomiting, constipation, melena, hematochezia GENITOURINARY: Absent: dysuria, frequency, urgency, hesitancy, hematuria, genital pain MUSCULOSKELETAL: myalgia, arthralgia, joint swelling, back pain, Absent: neck pain SKIN: Absent: rash, itching, pallor HEMATOLOGIC/IMMUNOLOGIC: Absent: easy bleeding, easy bruising, lymphadenopathy, frequent infections ENDOCRINE: Absent: unexplained weight gain, unexplained weight loss, heat intolerance, cold intolerance NEUROLOGIC: focal weakness or paresthesias, unsteady gait Absent: headache, dizziness, seizure, mental status changes, bladder or bowel incontinence PSYCHIATRIC: Absent: anxiety, depression, suicidal or homicidal ideation, hallucinations. PHYSICAL EXAMINATION Vital Signs - 24 hr 12/03/16 12/03/16 12/03/16 04:25 05:44 08:00 Temperature 98.1 F 98.1 F Pulse Rate 83 82 Pulse Rate [ 79 Radial] Respiratory 19 19 18 Rate Blood Pressure 140/83 130/66 Blood Pressure 139/89 [Right Arm] O2 Sat by Pulse 96 96 Oximetry (%) GENERAL: Awake, alert, and fully oriented, in no acute distress. Laying in bed. HEAD: Normal with no signs of trauma. No temporal arteritis. EYES: Pupils equal, round and reactive to light, extraocular movements intact, sclera anicteric, conjunctiva clear. No lid lag. EARS, NOSE, THROAT: Ears normal, nares patent, oropharynx clear without exudates. Moist mucous membranes. NECK: Decreased range of motion limited by pain. No lymphadenopathy, JVD, or masses. LUNGS: Breath sounds equal, clear to auscultation bilaterally. No wheezes, and no crackles. No accessory muscle use. HEART: Grade 2/6 systolic murmur at RUSB. Irregular rhythm, normal S1 and S2 without rub or gallop. Prominent S2. ABDOMEN: Soft, nontender, not distended, normoactive bowel sounds, no guarding, no rebound, no masses. No hepatomegaly or splenomegaly. Prior midline peripumbilical abdominal scar. MUSCULOSKELETAL: R knee w/ mild periarticular swelling, but no erythema or pain on palpation, warm to touch. L knee w/ trace effusion and no erythema, calor or pain on palpation. R elbow w/ mild posterior effusion, no pain on palpation and slight partial erythema. L elbow w/ no effusion, erythema or pain on palpation. No pain on palpation, erythema or swelling in hips, but exam limited by pt position and limited range of motion due to pain. BL shoulders no erythema, effusion or tenderness to palpation. All joints painful with active/passive motion. All other joints are unremarkable. UPPER EXTREMITIES: 2+ pulses, warm, well-perfused. No cyanosis. No clubbing. Cap refill <2 seconds. IV site on L side, no erythema or edema. LOWER EXTREMITIES: 2+ pulses, warm, well-perfused. No calf tenderness. No peripheral edema. NEUROLOGICAL: Cranial nerves II-XII intact. Normal speech. Gait not evaluated. PSYCHIATRIC: Cooperative. Good eye contact. Constricted affect. SKIN: Warm, dry, normal turgor. No lesions noted. Laboratory Tests CBC, BMP 12/02/16 18:38 12/03/16 01:10 12/02/16 12/02/16 12/02/16 18:38 18:38 18:40 WBC 19.7 H D RBC 4.64 Hgb 14.9 D Hct 44.9 MCV 96.8 H MCH 32.2 MCHC 33.2 RDW 12.8 Plt Count 191 MPV 9.6 D Neutrophils % 90.5 H D Lymphocytes % 2.3 L D Monocytes % 7.1 Eosinophils % 0.0 D Basophils % 0.1 Sodium 132 L Potassium 3.2 L D Chloride 94 L Carbon Dioxide 25 Anion Gap 13 BUN 30 H D Creatinine 1.2 D Creat Clearance w eGFR 57.68 Random Glucose 75 D Calcium 8.9 Total Bilirubin 0.9 D AST 234 H D ALT 50 D Alkaline Phosphatase 61 Creatine Kinase 4508 H D Creatine Kinase Index 1.3 CK-MB (CK-2) 59.963 H CK-MB (CK-2) Rel Index Troponin I 20.40 H* D Total Protein 6.9 Albumin 3.6 Urine Color Urine Appearance Urine pH Urine Protein Urine Glucose (UA) Urine Ketones Urine Blood Urine Nitrite Urine Bilirubin Urine Urobilinogen Ur Leukocyte Esterase Urine RBC Urine WBC Urine Bacteria 12/02/16 12/03/16 12/03/16 18:40 01:10 01:10 WBC RBC Hgb Hct MCV MCH MCHC RDW Plt Count MPV Neutrophils % Lymphocytes % Monocytes % Eosinophils % Basophils % Sodium Potassium Chloride Carbon Dioxide Anion Gap BUN Creatinine Creat Clearance w eGFR Random Glucose Calcium Total Bilirubin AST ALT Alkaline Phosphatase Creatine Kinase 3431 H D Creatine Kinase Index 1.1 CK-MB (CK-2) 39.203 H CK-MB (CK-2) Rel Index Cancelled Troponin I 18.93 H* Total Protein Albumin Urine Color Lisette Urine Appearance Clear Urine pH 5.0 Urine Protein 2+ H Urine Glucose (UA) Negative Urine Ketones Negative Urine Blood 3+ H Urine Nitrite Negative Urine Bilirubin Negative Urine Urobilinogen Negative Ur Leukocyte Esterase Negative Urine RBC 1 Urine WBC 7 Urine Bacteria Few 12/03/16 12/03/16 01:10 01:10 WBC RBC Hgb Hct MCV MCH MCHC RDW Plt Count MPV Neutrophils % Lymphocytes % Monocytes % Eosinophils % Basophils % Sodium 131 L Potassium 3.6 Chloride 99 Carbon Dioxide 21 Anion Gap 11 BUN 27 H Creatinine 0.9 D Creat Clearance w eGFR Random Glucose 109 H D Calcium 8.1 L Total Bilirubin AST ALT Alkaline Phosphatase Creatine Kinase Creatine Kinase Index CK-MB (CK-2) CK-MB (CK-2) Rel Index Cancelled Troponin I Total Protein Albumin Urine Color Urine Appearance Urine pH Urine Protein Urine Glucose (UA) Urine Ketones Urine Blood Urine Nitrite Urine Bilirubin Urine Urobilinogen Ur Leukocyte Esterase Urine RBC Urine WBC Urine Bacteria Imaging: CXR (12/02): Unremarkable CT abdomen/pelvis (12/02): 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 Anterolateral cyst possibly contiguous w/ joint space seen in R hip. No other prominent bone lesions. Active Medications Generic Name Dose Route Start Last Admin Trade Name Freq PRN Reason Stop Dose Admin Acetaminophen 325 mg 12/03/16 10:46 Tylenol - PO Q6H PRN FEVER OR PAIN Aspirin 81 mg 12/03/16 10:00 12/03/16 10:34 Asa - PO 81 mg DAILY FIDELIA Administration Atorvastatin Calcium 10 mg 12/03/16 22:00 Lipitor - PO HS FIDELIA Clopidogrel Bisulfate 75 mg 12/04/16 10:00 Plavix - PO DAILY FIDELIA Heparin Sodium (Porcine) 1,000 unit 12/03/16 09:45 Heparin - IVPUSH PRN PRN Heparin Heparin Sodium (Porcine) 5,000 unit 12/03/16 09:45 Heparin - IVPUSH PRN PRN Heparin Heparin Sodium (Porcine) 25, 500 mls @ 20 mls/hr 12/03/16 10:30 000 unit/ Sodium Chloride IV TITR FIDELIA Protocol 1,000 UNIT/HR Lisinopril 10 mg 12/03/16 10:00 12/03/16 10:35 Prinivil PO 10 mg DAILY FIDELIA Administration Metoprolol Succinate 25 mg 12/03/16 10:00 12/03/16 10:35 Toprol Xl - PO 25 mg DAILY FIDELIA Administration Metronidazole 500 mg 12/03/16 05:15 12/03/16 05:29 Flagyl - PO 12/08/16 05:14 500 mg BID FIDELIA Administration Pantoprazole Sodium 20 mg 12/03/16 10:00 12/03/16 10:35 Protonix - PO 20 mg DAILY FIDELIA Administration ASSESSMENT/PLAN: Assessment: Pt is a 86 yo man w/ pmh of arthritis (OA vs RA?), HTN, HLD, who was BIBEMS from home due to inability to walk in the setting of progressive BL LE weakness of a few months duration. PE notable for BL symmetric large joint stiffness and pain with motion w/o erythema or rashes, w/ accompanying myalgias and BL UE and LE progressive weakness. Labs notable for elevated WBC and CPK. Imaging notable for AL cyst contiguous with R hip joint capsule. Clinical picture more consistent w/ rheumatologic condition (Polymyositis/fibromyagia/polymyalgia rheumatica) than polyarthropathy due to infectious process, however cannot rule out given elevated WBC and recent diarrhea, despite no other infectious symptoms. Recommend rheum work-up/consult w/ additional r/o of possible infectious source. Plan: #Polyarthropathy - D/c Flagyl - No Abx at this time - Hold statins in setting myalgias - Blood cultures - CANDY, RF, CCP, Aldolase, Uric acid - [place] dz titers - ESR, CRP - Stool O+P - Monitor for infectious symptoms - Trend fever curve, WBC - Daily CBCs - Rheum consult Danilo Dumont MD, PGY1 Discussed with attending, Dr. Arriola Dispo: We will continue to follow the patient. Thank you for this consultative opportunity. Problem List - Problems (1) Elevated troponin level Code(s): R74.8 - ABNORMAL LEVELS OF OTHER SERUM ENZYMES (2) Joint pain Code(s): M25.50 - PAIN IN UNSPECIFIED JOINT Qualifiers: Joint pain location: knee Laterality: bilateral Qualified Code(s ): M25.561 - Pain in right knee Visit type - Emergency Visit Emergency Visit: No - New Patient This patient is new to me today: Yes Date on this admission: 12/03/16 - Critical Care Critical Care patient: No
[2016-12-03] MEDS ORDERED: HEPARIN INFUSION - 500 ML IVPB ONE (11:57)
--- NOTE | 2016-12-03 12:22 | PN ---
Teaching Attending Note Name of Resident: Danilo Dumont ATTENDING PHYSICIAN STATEMENT I saw and evaluated the patient. I reviewed the resident's note and discussed the case with the resident. I agree with the resident's findings and plan as documented. SUBJECTIVE: 86 year old male admitted with ACS Reports several month history generalized musculoskeletal pain, recent onset diarrhea No recent febrile illness; denies insect bites WBC 19k OBJECTIVE: Awake, alert Weakness of UE and LE bilaterally Has pain with passive ROM UE+LE ASSESSMENT AND PLAN: Possible polymyositis ? reactive arthritis ( less likely) ACS Leukocytosis Obtain blood c/s ESR CRP CANDY RF Uric acid Stool studies Observe off antibiotics
--- NOTE | 2016-12-03 12:47 | EKG ---
Test Reason : Blood Pressure : / mmHG Vent. Rate : 093 BPM Atrial Rate : 093 BPM P-R Int : 156 ms QRS Dur : 152 ms QT Int : 388 ms P-R-T Axes : 057 -35 137 degrees QTc Int : 482 ms NORMAL SINUS RHYTHM LEFT AXIS DEVIATION LEFT BUNDLE BRANCH BLOCK ABNORMAL ECG WHEN COMPARED WITH ECG OF 19-JAN-2012 13:00, VENT. RATE HAS INCREASED BY 46 BPM T WAVE INVERSION MORE EVIDENT IN ANTEROLATERAL LEADS Confirmed by PATRICIA BARKER MD ([id number]) on 12/03/2016 12:47:05 PM Referred By: Confirmed By:PATRICIA BARKER MD
--- NOTE | 2016-12-03 13:29 | HP ---
Admitting History and Physical - Admission Chief Complaint: pt complained of gen jt pain x3 days ago. loose bm x 1 wk. seems slightley confused. denies any other complaints History Source: Patient Limitations to Obtaining History: No Limitations - Past Medical History [employer]: Yes: Dementia (very mild) Cardiovascular: Yes: HTN Gastrointestinal: Yes: Diverticulitis, Other (sm gallstones) Infectious Disease: Yes: Other (tic dz) Musculoskeletal: Yes: Other (? o/a) - Past Surgical History Past Surgical History: Yes: None - Smoking History Smoking history: Never smoked Have you smoked in the past 12 months: No If you are a former smoker, when did you quit?: 35YRS AGO - Alcohol/Substance Use Hx Alcohol Use: No - Social History Usual Living Arrangement: Yes: With Spouse ADL: Independent History of Recent Travel: No Home Medications - Allergies Allergies/Adverse Reactions: Allergies Allergy/AdvReac Type Severity Reaction Status Date / Time No Known Drug Allergies Allergy Verified 04/08/13 10:45 - Home Medications Home Medications: Ambulatory Orders Aspirin Coated [Ecotrin -] 81 mg PO DAILY 01/14/12 Lisinopril [Prinivil] 10 mg PO DAILY 01/14/12 Omeprazole [Prilosec (RX)] 20 mg PO DAILY #1 capsule 09/20/12 Metoprolol Succinate [Toprol XL -] 25 mg PO DAILY #1 tab.sr.24h 04/13/13 Pravastatin Sodium [Pravachol (Nf)] 20 mg PO HS 09/08/15 Family Disease History - Family Disease History Family History: Unremarkable Review of Systems - Review of Systems Constitutional: reports: Malaise, Other (weak) Eyes: reports: No Symptoms HENT: reports: No Symptoms Neck: reports: No Symptoms Cardiovascular: reports: No Symptoms Respiratory: reports: No Symptoms Gastrointestinal: reports: Bloating Genitourinary: reports: No Symptoms Breasts: reports: No Symptoms Reported Musculoskeletal: reports: Joint Pain Integumentary: reports: No Symptoms Neurological: reports: No Symptoms Endocrine: reports: No Symptoms Hematology/Lymphatic: reports: No Symptoms Psychiatric: reports: Depression (qeutionable) Physical Examination Vital Signs: Vital Signs Temperature 99.4 F 12/03/16 12:00 Pulse Rate 87 12/03/16 12:00 Respiratory Rate 22 12/03/16 12:00 Blood Pressure 122/70 12/03/16 12:00 O2 Sat by Pulse Oximetry (%) 96 12/03/16 08:00 Constitutional: Yes: Calm Eyes: Yes: WNL HENT: Yes: WNL Neck: Yes: WNL Cardiovascular: Yes: WNL Respiratory: Yes: WNL Gastrointestinal: Yes: Soft (tender diffusely no rebound) ...Rectal Exam: Yes: Deferred Renal/: Yes: WNL Breast(s): Yes: WNL Musculoskeletal: Yes: WNL Extremities: Yes: WNL Edema: No Peripheral Pulses WNL: Yes Integumentary: Yes: WNL Neurological: Yes: Alert, Oriented ...Motor Strength: WNL Psychiatric: Yes: Oriented Problem List - Problems (1) Hyponatremia Code(s): E87.1 - HYPO-OSMOLALITY AND HYPONATREMIA Assessment/Plan d/c iv for and chk na in am cont flagly po ? diverticulits nstemi cont humaira q 8 ekgs f/u card and id chk labs in am
[2016-12-03] MEDS: HEPARIN - 25,000 UNIT in SODIUM CHLORIDE 495 ML IV SCH ×2 (13:30→22:00)
[2016-12-03] MEDS: HEPARIN NA (PORCINE) 5,000 UNITS/ML 1ML VIAL IVPUSH PRN (13:30)
[2016-12-03] MEDS: ACETAMINOPHEN 325 MG TABLET (FP) PO PRN (18:03)
[2016-12-03] MEDS ORDERED: ATORVASTATIN CA 40 MG TABLET (FP) PO SCH (22:00)
[2016-12-03] MEDS ORDERED: ATORVASTATIN CA 10 MG TABLET (FP) PO SCH (22:00)
[2016-12-04 06:50] LABS: BASOPHIL 0.1 % (0-2.0); EOSINOPHIL 0.1 % (0-4.5); MCH 32.3 pg (25.7-33.7); MCHC 33.4 g/dl (32.0-35.9); MEAN CELL VOLUME 96.7 fl (80-96); MEAN PLT VOLUME 10.3 fl (7.5-11.1); NEUTROPHILS 90.4 % (42.8-82.8); PLATELET COUNT 149 K/MM3 (134-434); RDW 12.9 % (11.9-15.9); WHITE BLOOD COUNT 15.2 K/mm3 (4.0-10.0)
[2016-12-04 07:19] LABS: ALBUMIN 2.6 g/dl (3.4-5.0); ANION GAP 13 (8-16); CALCIUM 8.4 mg/dL (8.5-10.1); CO2 23 mmol/L (21-32); GLUCOSE,RANDOM 86 mg/dL (74-106); SGOT/AST 98 U/L (15-37); SGPT/ALT 42 U/L (12-78)
[2016-12-04 07:21] LABS: ALK PHOS 49 U/L (45-117); BILIRUBIN,TOTAL 1.4 mg/dL (0.2-1.0); TOT PROT 5.5 g/dl (6.4-8.2)
--- NOTE | 2016-12-04 07:50 | PN ---
Progress Note, Physician Chief Complaint: ID Shaking chills at this time but no fever He looks "toxic" Report of positive blood cultures !! Off antibiotics Polyarticular pains as noted previously Has prosthetic knee - Current Medication List Current Medications: Active Medications Acetaminophen (Tylenol -) 325 mg PO Q6H PRN PRN Reason: FEVER OR PAIN Last Admin: 12/03/16 18:03 Dose: 325 mg Aspirin (Asa -) 81 mg PO DAILY [facility] Last Admin: 12/03/16 10:34 Dose: 81 mg Clopidogrel Bisulfate (Plavix -) 75 mg PO DAILY [facility] Heparin Sodium (Porcine) (Heparin -) 1,000 unit IVPUSH PRN PRN PRN Reason: Heparin Heparin Sodium (Porcine) (Heparin -) 5,000 unit IVPUSH PRN PRN PRN Reason: Heparin Last Admin: 12/03/16 13:30 Dose: 5,000 unit Heparin Sodium (Porcine) 25, (000 unit/ Sodium Chloride) 500 mls @ 20 mls/hr IV TITR FIDELIA; 1,000 UNIT/HR PRN Reason: Protocol Last Admin: 12/03/16 22:00 Dose: 22 mls/hr Lisinopril (Prinivil) 10 mg PO DAILY [facility] Last Admin: 12/03/16 10:35 Dose: 10 mg Metoprolol Succinate (Toprol Xl -) 25 mg PO DAILY [facility] Last Admin: 12/03/16 10:35 Dose: 25 mg Pantoprazole Sodium (Protonix -) 20 mg PO DAILY [facility] Last Admin: 12/03/16 10:35 Dose: 20 mg - Objective Vital Signs: Vital Signs Temperature 98.2 F 12/04/16 05:00 Pulse Rate 78 12/04/16 05:00 Respiratory Rate 22 12/04/16 05:00 Blood Pressure 129/62 12/04/16 05:00 O2 Sat by Pulse Oximetry (%) 98 12/03/16 21:00 Constitutional: Yes: Mild Distress, Other (Chills) Eyes: No: Conjunctiva Clear Neck: Yes: WNL, Supple Cardiovascular: Yes: Murmur, S1, S2 Respiratory: Yes: WNL, Regular, CTA Bilaterally Gastrointestinal: Yes: WNL, Normal Bowel Sounds, Soft. No: Splenomegaly, Tenderness, Tenderness, Rebound Extremities: No: Cold, Cool, Cyanosis Edema: No Labs: CBC, BMP 12/04/16 05:15 INR, PTT INR 1.27 (0.82-1.09) H 12/03/16 10:10 Problem List - Problems (1) Bacteremia due to Gram-positive bacteria Code(s): R78.81 - BACTEREMIA (2) Endocarditis Code(s): I38 - ENDOCARDITIS, VALVE UNSPECIFIED Assessment/Plan Microbiology 12/03/16 13:00 Blood - Peripheral Venous Blood Culture - Preliminary Pending Organism 12/03/16 13:00 Blood - Peripheral Venous Blood Culture - Preliminary Pending Organism Laboratory Tests 12/02/16 12/03/16 12/03/16 18:38 10:10 15:27 WBC 19.7 H D Hgb 14.9 D Plt Count 191 Neutrophils % 90.5 H D ESR BUN Creatinine Troponin I 9.89 H* D C-Reactive Protein 33.9 H Rheumatoid Arth [employer] CANDY Screen 12/04/16 12/04/16 12/04/16 05:15 05:15 05:15 WBC Hgb Plt Count Neutrophils % ESR Pending BUN 27 H Creatinine 1.0 Troponin I C-Reactive Protein Rheumatoid Arth [employer] Pending CANDY Screen Pending 12/04/16 05:15 WBC 15.2 H Hgb 13.3 D Plt Count 149 D Neutrophils % ESR BUN Creatinine Troponin I C-Reactive Protein Rheumatoid Arth [employer] CANDY Screen Assessment 86 year old male presents with polyarticular joint pains leukocytosis. Now has positive blood cultures gram positive cocci chains !! Patient had multiple tooth extractions upper teeth just last week. Possibility of bacterial endocarditis considered or simply bacteremia related to extraction. As discussed with Dr Good has had an acute NC . A 2 D ECHO did not show any large vegetation. Needs antibiotics Plan Discussed with cardiology Start Vancomycin 1.5 gr now with level in am Order urinary culture Await final c/s Ronni RAZA
[2016-12-04] MEDS: HEPARIN NA (PORCINE) 5,000 UNITS/ML 1ML VIAL IVPUSH PRN (07:55)
[2016-12-04] MEDS ORDERED: METOPROLOL SUCCINATE 25 MG TAB.SR.24H (FP) PO SCH (08:52)
[2016-12-04] MEDS ORDERED: VANCOMYCIN 1,500 MG in DEXTROSE 5%-WATER - 500 ML IVPB ONE (09:00)
--- NOTE | 2016-12-04 09:00 | PN ---
Physical Exam: SUBJECTIVE: Patient seen and examined by me this AM - WBC downtrending from 19.7 -> 15.2 - Pt endorses fever and chills overnight and appears more toxic this AM. Denies any KIRBY, vision changes, cough, CP, Abdominal pain, N/V, rash, LE edema or nodules. Continues to endorse BL proximal large joint and back pain - No fever overnight - 2/2 blood cx's + for gram positive organism in chains. - F/u Hx reveals recent dental procedure for multiple tooth extraction last week. Unknown if received abx ppx, as pt is poor historian. OBJECTIVE: Vital Signs Period Temp Pulse Resp BP Sys/Osman Pulse Ox Last 24 Hr 97.5 F-99.4 F 66-88 16-26 103-129/58-70 96-98 GENERAL: Awake, alert, and fully oriented, in no acute distress. Laying in bed, appears mildly anxious HEAD: Normal with no signs of trauma. No temporal arteritis. EYES: sclera anicteric, conjunctiva clear. No lid lag. No evidence of conjunctival hemorrhages EARS, NOSE, THROAT: Ears normal, nares patent, oropharynx clear without exudates. Moist mucous membranes. NECK: Decreased range of motion limited by pain. No lymphadenopathy, JVD, or masses. LUNGS: Breath sounds equal, clear to auscultation bilaterally. No wheezes, and no crackles. No accessory muscle use. HEART: Grade 2/6 systolic murmur at RUSBm likely . Prominent S2. Irregular rhythm, normal S1 and S2 without rub or gallop. ABDOMEN: Soft, nontender, not distended, normoactive bowel sounds, no guarding, no rebound, no masses. No hepatomegaly or splenomegaly. Prior midline peripumbilical abdominal scar. MUSCULOSKELETAL: No major interval changes since exam yesterday. R knee w/ mild periarticular swelling, but no erythema or pain on palpation, warm to touch. L knee w/ trace effusion and no erythema, calor or pain on palpation. R elbow w/ mild posterior effusion, no pain on palpation and slight partial erythema. L elbow w/ no effusion, erythema or pain on palpation. No pain on palpation, erythema or swelling in hips, but exam limited by pt position and limited range of motion due to pain. BL shoulders no erythema, effusion or tenderness to palpation. All joints painful with active/passive motion. All other joints are unremarkable. UPPER EXTREMITIES: No splinter hemmorhages or oslers nodes. 2+ pulses, warm, well-perfused. No cyanosis. No clubbing. Cap refill <2 seconds. IV site on L side, no erythema or edema. LOWER EXTREMITIES: No nodules. 2+ pulses, warm, well-perfused. No calf tenderness. No peripheral edema. NEUROLOGICAL: Cranial nerves II-XII intact. Normal speech. Gait not evaluated. PSYCHIATRIC: Cooperative. Good eye contact. Constricted affect. SKIN: Warm, dry, normal turgor. No lesions noted. Laboratory Results - last 24 hr CBC, BMP 12/04/16 05:15 12/04/16 05:15 12/03/16 12/03/16 12/03/16 10:10 10:10 15:27 WBC RBC Hgb Hct MCV MCH MCHC RDW Plt Count MPV Neutrophils % Lymphocytes % Monocytes % Eosinophils % Basophils % INR 1.27 H PTT (Actin FS) 33.3 Sodium Potassium Chloride Carbon Dioxide Anion Gap BUN Creatinine Creat Clearance w eGFR Random Glucose Uric Acid Calcium Total Bilirubin AST ALT Alkaline Phosphatase Troponin I 9.89 H* D C-Reactive Protein 33.9 H Total Protein Albumin Total Amylase 12/03/16 12/04/16 12/04/16 19:30 05:15 05:15 WBC 15.2 H RBC 4.11 Hgb 13.3 D Hct 39.7 MCV 96.7 H MCH 32.3 MCHC 33.4 RDW 12.9 Plt Count 149 D MPV 10.3 Neutrophils % 90.4 H Lymphocytes % 3.4 L D Monocytes % 6.0 Eosinophils % 0.1 D Basophils % 0.1 INR PTT (Actin FS) 45.9 H D Sodium 134 L Potassium 3.7 Chloride 98 Carbon Dioxide 23 Anion Gap 13 BUN 27 H Creatinine 1.0 Creat Clearance w eGFR > 60 Random Glucose 86 D Uric Acid 4.0 Calcium 8.4 L Total Bilirubin 1.4 H D AST 98 H D ALT 42 Alkaline Phosphatase 49 Troponin I C-Reactive Protein Total Protein 5.5 L D Albumin 2.6 L D Total Amylase 12/04/16 12/04/16 05:15 05:15 WBC RBC Hgb Hct MCV MCH MCHC RDW Plt Count MPV Neutrophils % Lymphocytes % Monocytes % Eosinophils % Basophils % INR PTT (Actin FS) 40.4 H Sodium Potassium Chloride Carbon Dioxide Anion Gap BUN Creatinine Creat Clearance w eGFR Random Glucose Uric Acid Calcium Total Bilirubin AST ALT Alkaline Phosphatase Troponin I C-Reactive Protein Total Protein Albumin Total Amylase 16 L Microbiology 12/03/16 13:00 Blood - Peripheral Venous Blood Culture - Preliminary Pending Organism 12/03/16 13:00 Blood - Peripheral Venous Blood Culture - Preliminary Pending Organism Active Medications Generic Name Dose Route Start Last Admin Trade Name Freq PRN Reason Stop Dose Admin Acetaminophen 325 mg 12/03/16 10:46 12/03/16 18:03 Tylenol - PO 325 mg Q6H PRN Administration FEVER OR PAIN Aspirin 81 mg 12/03/16 10:00 12/03/16 10:34 Asa - PO 81 mg DAILY FIDELIA Administration Clopidogrel Bisulfate 75 mg 12/04/16 10:00 Plavix - PO DAILY FIDELIA Heparin Sodium (Porcine) 1,000 unit 12/03/16 09:45 Heparin - IVPUSH PRN PRN Heparin Heparin Sodium (Porcine) 5,000 unit 12/03/16 09:45 12/04/16 07:55 Heparin - IVPUSH 5,000 unit PRN PRN Administration Heparin Heparin Sodium (Porcine) 25, 500 mls @ 20 mls/hr 12/03/16 10:30 12/04/16 07:55 000 unit/ Sodium Chloride IV 1,250 unit/hr TITR FIDELIA Titration Protocol 1,000 UNIT/HR Vancomycin HCl 1,500 mg/ 500 mls @ 250 mls/hr 12/04/16 08:14 Dextrose IVPB 12/04/16 10:13 ONCE ONE Protocol Lisinopril 10 mg 12/03/16 10:00 12/03/16 10:35 Prinivil PO 10 mg DAILY FIDELIA Administration Metoprolol Succinate 25 mg 12/03/16 10:00 12/03/16 10:35 Toprol Xl - PO 25 mg DAILY FIDELIA Administration Pantoprazole Sodium 20 mg 12/03/16 10:00 12/03/16 10:35 Protonix - PO 20 mg DAILY FIDELIA Administration ASSESSMENT/PLAN: Assessment: Pt is a 86 yo man w/ pmh of arthritis (OA vs RA?), HTN, HLD, who was BIBEMS from home due to inability to walk in the setting of progressive BL LE weakness of a few months duration. PE notable for BL symmetric large joint stiffness and pain with motion w/o erythema or rashes, w/ accompanying myalgias and BL UE and LE progressive weakness. Pt reports chills since admission, but remains afebrile w/ no other infectious symptoms. New Hx notable for recent dental procedure last week. Since admission, pt w/ consistent leukocytosis and BL proximal polyarthritis (suspicion for infectious vs. rheumatologic), w/ 2/2 blood cultures positive for gram positive cocci in chains. Rheum work-up pending. Echo notable for mild MR, apical hypokinesis and no vegetations. Must consider subacute vs. acute IE as possible infectious source, despite Echo results. Started on Vancomycin for GP coverage. Continue infectious vs. rheumatologic work-up. Plan: #Suspected endocarditis - 2/2 blood cultures + for GP cocci in chains - Received one dose of Vanc 1.5g IV - Repeat blood cultures - Echo negative for vegetations #Chronic Polyarthropathy - Hold statins in setting myalgias - f/u blood, urine cx's - f/u CANDY, RF, CCP, Aldolase, Uric acid - f/u [place] dz titers - f/u ESR, CRP - Stool O+P - Monitor for infectious symptoms - Trend fever curve, WBC - Daily CBCs - Rheum consult Danilo Dumont MD, PGY1 Plan discussed with attending, Dr. Rudolph Dispo: We will continue to follow the patient. Thank you for this consultative opportunity. Problem List - Problems (1) Elevated troponin level Code(s): R74.8 - ABNORMAL LEVELS OF OTHER SERUM ENZYMES (2) Joint pain Code(s): M25.50 - PAIN IN UNSPECIFIED JOINT Qualifiers: Joint pain location: knee Laterality: bilateral Qualified Code(s ): M25.561 - Pain in right knee Visit type - Emergency Visit Emergency Visit: No - New Patient This patient is new to me today: No - Critical Care Critical Care patient: No
[2016-12-04] MEDS: LISINOPRIL 10 MG TABLET (FP) PO SCH ×2 (09:18→09:49)
[2016-12-04] MEDS: ASPIRIN 81 MG CHEWABLE TABLETS PO SCH (09:26)
[2016-12-04] MEDS: ACETAMINOPHEN 325 MG TABLET (FP) PO PRN ×3 (09:27→23:36)
[2016-12-04] MEDS: CLOPIDOGREL BISULFATE 75 MG TABLET (FP) PO SCH (09:27)
[2016-12-04] MEDS: PANTOPRAZOLE 20 MG TABLET (FP) PO SCH (09:27)
[2016-12-04] MEDS ORDERED: SODIUM CHLORIDE 500 ML IV ONE (10:45)
--- NOTE | 2016-12-04 10:45 | PN ---
Progress Note (short form) - Note Progress Note: s: no cp sob palps dizzy; +fever this am with low bp o: Vital Signs Temp 98.2 F 12/04/16 05:00 Pulse 108 H 12/04/16 08:45 Resp 22 12/04/16 08:45 BP 93/56 12/04/16 08:45 Pulse Ox 98 12/04/16 08:12 Intake & Output 12/03/16 12/03/16 12/04/16 11:59 23:59 11:59 Intake Total 75 1145 270 Balance 75 1145 270 Weight 198 lb 4 oz 191 lb 2.252 oz Intake: IV 75 315 220 1/2 Normal Saline 1,000 75 225 ml @ 75 mls/hr IV ASDIR FIDELIA Rx#:[id number] Heparin - 25,000 Unit In 90 220 Normal Saline - 495 ml @ 1,000 UNIT/HR 20 mls/hr IV TITR FIDELIA Rx#: [id number] Oral 830 50 Other: Voiding Method Incontinent Incontinent Incontinent # Unmeasured Voids Void 1 3 2 Bowel Movement No No Height 6 ft Body Mass Index (BMI) 26.9 Weight Measurement Method Built in [facility] Built in [facility] Constitutional: Yes: Well Nourished, No Distress Eyes: No: Sclera Icterus HENT: No: Nasal Congestion Neck: No: Decreased ROM Respiratory: Yes: CTA Bilaterally. No: Accessory Muscle Use, Rales, Wheezes Gastrointestinal: Yes: Normal Bowel Sounds. No: Distention, Hepatomegaly, Palpable Mass, Tenderness Cardiovascular: Yes: Regular Rate and Rhythm JVD: No Carotid Bruit: No PMI: Non-Displaced Heart Sounds: Yes: S1, S2. No: Gallop Murmur: No: Systolic Murmur, Diastolic Murmur Extremities: No: Cold, Cyanosis Edema: No Integumentary: No: Jaundice diaphoresis Neurological: Yes: Alert, awake, appropriate Psychiatric: No: Agitated Laboratory Last Values WBC 15.2 K/mm3 (4.0-10.0) H 12/04/16 05:15 RBC 4.11 M/mm3 (4.00-5.60) 12/04/16 05:15 Hgb 13.3 GM/dL (11.7-16.9) D 12/04/16 05:15 Hct 39.7 % (35.4-49) 12/04/16 05:15 MCV 96.7 fl (80-96) H 12/04/16 05:15 MCH 32.3 pg (25.7-33.7) 12/04/16 05:15 MCHC 33.4 g/dl (32.0-35.9) 12/04/16 05:15 RDW 12.9 % (11.9-15.9) 12/04/16 05:15 Plt Count 149 K/MM3 (134-434) D 12/04/16 05:15 MPV 10.3 fl (7.5-11.1) 12/04/16 05:15 Neutrophils % 90.4 % (42.8-82.8) H 12/04/16 05:15 Lymphocytes % 3.4 % (8-40) L D 12/04/16 05:15 Monocytes % 6.0 % (3.8-10.2) 12/04/16 05:15 Eosinophils % 0.1 % (0-4.5) D 12/04/16 05:15 Basophils % 0.1 % (0-2.0) 12/04/16 05:15 ESR 67 mm/hr (0-20) H 12/04/16 05:15 INR 1.27 (0.82-1.09) H 12/03/16 10:10 PTT (Actin FS) 40.4 SECONDS (26.9-34.4) H 12/04/16 05:15 Sodium 134 mmol/L (136-145) L 12/04/16 05:15 Potassium 3.7 mmol/L (3.5-5.1) 12/04/16 05:15 Chloride 98 mmol/L (98-107) 12/04/16 05:15 Carbon Dioxide 23 mmol/L (21-32) 12/04/16 05:15 Anion Gap 13 (8-16) 12/04/16 05:15 BUN 27 mg/dL (7-18) H 12/04/16 05:15 Creatinine 1.0 mg/dL (0.7-1.3) 12/04/16 05:15 Creat Clearance w eGFR > 60 (>60) 12/04/16 05:15 Random Glucose 86 mg/dL (74-106) D 12/04/16 05:15 Uric Acid 4.0 mg/dL (2.6-7.2) 12/04/16 05:15 Calcium 8.4 mg/dL (8.5-10.1) L 12/04/16 05:15 Total Bilirubin 1.4 mg/dL (0.2-1.0) H D 12/04/16 05:15 AST 98 U/L (15-37) H D 12/04/16 05:15 ALT 42 U/L (12-78) 12/04/16 05:15 Alkaline Phosphatase 49 U/L (45-117) 12/04/16 05:15 Creatine Kinase 3431 IU/L (39-308) H D 12/03/16 01:10 Creatine Kinase Index 1.1 % (0.0-5.0) 12/03/16 01:10 CK-MB (CK-2) 39.203 ng/ml (0.5-3.6) H 12/03/16 01:10 CK-MB (CK-2) Rel Index Cancelled 12/02/16 18:40 Troponin I 9.89 ng/ml (0.00-0.05) H* D 12/03/16 15:27 C-Reactive Protein 33.9 MG/DL (0.00-0.3) H 12/03/16 10:10 Total Protein 5.5 g/dl (6.4-8.2) L D 12/04/16 05:15 Albumin 2.6 g/dl (3.4-5.0) L D 12/04/16 05:15 Total Amylase 16 U/L (25-115) L 12/04/16 05:15 Urine Color Lisette 12/03/16 01:10 Urine Appearance Clear 12/03/16 01:10 Urine pH 5.0 (5.0-8.0) 12/03/16 01:10 Ur Specific [place] >= 1.030 (1.005-1.025) H 12/03/16 01:10 Urine Protein 2+ (NEGATIVE) H 12/03/16 01:10 Urine Glucose (UA) Negative (NEGATIVE) 12/03/16 01:10 Urine Ketones Negative (NEGATIVE) 12/03/16 01:10 Urine Blood 3+ (NEGATIVE) H 12/03/16 01:10 Urine Nitrite Negative (NEGATIVE) 12/03/16 01:10 Urine Bilirubin Negative (NEGATIVE) 12/03/16 01:10 Urine Urobilinogen Negative mg/dL (0.2-1.0) 12/03/16 01:10 Ur Leukocyte Esterase Negative (NEGATIVE) 12/03/16 01:10 Urine RBC 1 /hpf (0-3) 12/03/16 01:10 Urine WBC 7 /hpf (3-5) 12/03/16 01:10 Urine Bacteria Few /hpf (NONE SEEN) 12/03/16 01:10 tele: sr echo 08/2016: low nl lvef, nl rv, mild tr cxr: clear lungs ecg 12/02/16: sr, nl pr, old lbbb echo 11/2016: nl lvef, apicalseptal AK, nl rv size, mild mr, mild tr, nl rvsp est cct 35 mins Assessment/Plan hx cad s/p pci 2012, here with NSTEMI: -pt w/o cardiac symptoms but troponin elevated up to 20 here, now trending down -ecg with old lbbb -echo here with nl lvef, apical WMA's -given the high trop values this seems more likely to be ACS/NSTEMI, thus have been treating with asa/plavix, hep gtt -cont to monitor on tele -cont sunday and bb on hold due to low bp -statin held due to rising lfts -will need ischemic eval after infectious issues resolved sepsis, +bld cxs: -febrile this AM and low bp -cont abx per ID -can give ivfs to maintain bp -TTE shows no signs endocarditis but would need RADHA to r/o more definitively. Currently no severe valve issues and no signs chf so will monitor clinical status for now given his current NSTEMI as well. HTN: -bp low 2/2 sepsis so will hold bb/sunday -cont ivfs HPL: -statin held due to rising lfts, possibly from sepsis, cont to trend margarita -slightly prerenal on initial labs, likely from diarrhea, sepsis -cr improved with ivfs, monitor
[2016-12-04] MEDS ORDERED: SODIUM CHLORIDE 0.45% 1,000 ML IV SCH (11:00)
[2016-12-04 11:36] LABS: URINE APPEARANCE SLCLOUDY; URINE BILIRUBIN NEGATIVE (NEGATIVE); URINE BLOOD 2+ (NEGATIVE); URINE COLOR DKYELLOW; URINE GLUCOSE (UA) NEGATIVE (NEGATIVE); URINE KETONE NEGATIVE (NEGATIVE); URINE LEUK ESTERASE TRACE (NEGATIVE); URINE NITRITE NEGATIVE (NEGATIVE); URINE PROTEIN 1+ (NEGATIVE); URINE UROBILINOGEN NEGATIVE mg/dL (0.2-1.0)
[2016-12-04 11:41] LABS: GRANULAR CASTS 3 /lpf; URINE MUCUS RARE; URINE RBC 3 /hpf (0-3); URINE WBC 12 /hpf (3-5)
--- NOTE | 2016-12-04 11:55 | EKG ---
Test Reason : Blood Pressure : / mmHG Vent. Rate : 094 BPM Atrial Rate : 094 BPM P-R Int : 154 ms QRS Dur : 148 ms QT Int : 404 ms P-R-T Axes : 056 -36 153 degrees QTc Int : 505 ms NORMAL SINUS RHYTHM LEFT AXIS DEVIATION LEFT BUNDLE BRANCH BLOCK ABNORMAL ECG WHEN COMPARED WITH ECG OF 02-DEC-2016 18:10, NO SIGNIFICANT CHANGE WAS FOUND Confirmed by ELLEN RAZA, NADEGE ([id number]) on 12/04/2016 11:55:23 AM Referred By: Goyo SHARP Confirmed By:NADEGE HUGHES MD
--- NOTE | 2016-12-04 11:55 | PN ---
Progress Note, Physician Chief Complaint: pt states feeling wii but looks tovix verbalizes a o x 3 no diaarea abd less bloated and tender - Current Medication List Current Medications: Active Medications Acetaminophen (Tylenol -) 325 mg PO Q6H PRN PRN Reason: FEVER OR PAIN Last Admin: 12/04/16 09:27 Dose: 325 mg Aspirin (Asa -) 81 mg PO DAILY [facility] Last Admin: 12/04/16 09:26 Dose: 81 mg Clopidogrel Bisulfate (Plavix -) 75 mg PO DAILY [facility] Last Admin: 12/04/16 09:27 Dose: 75 mg Heparin Sodium (Porcine) (Heparin -) 1,000 unit IVPUSH PRN PRN PRN Reason: Heparin Heparin Sodium (Porcine) (Heparin -) 5,000 unit IVPUSH PRN PRN PRN Reason: Heparin Last Admin: 12/04/16 07:55 Dose: 5,000 unit Heparin Sodium (Porcine) 25, (000 unit/ Sodium Chloride) 500 mls @ 20 mls/hr IV TITR FIDELIA; 1,000 UNIT/HR PRN Reason: Protocol Last Titration: 12/04/16 07:55 Dose: 1,250 unit/hr Sodium Chloride (1/2 Normal Saline) 1,000 mls @ 100 mls/hr IV ASDIR [facility] Last Admin: 12/04/16 09:30 Dose: 100 mls/hr Lisinopril (Prinivil) 10 mg PO DAILY [facility] Last Admin: 12/04/16 09:49 Dose: Not Given Metoprolol Succinate (Toprol Xl -) 25 mg PO DAILY [facility] Last Admin: 12/04/16 09:18 Dose: Not Given Pantoprazole Sodium (Protonix -) 20 mg PO DAILY [facility] Last Admin: 12/04/16 09:27 Dose: 20 mg - Objective Vital Signs: Vital Signs Temperature 101.5 F H 12/04/16 11:00 Pulse Rate 85 12/04/16 11:00 Respiratory Rate 22 12/04/16 11:00 Blood Pressure 96/47 12/04/16 11:00 O2 Sat by Pulse Oximetry (%) 98 12/04/16 09:00 Constitutional: Yes: Calm Eyes: Yes: WNL HENT: Yes: WNL Neck: Yes: WNL Cardiovascular: Yes: Other (hypotensive) Respiratory: Yes: WNL Gastrointestinal: Yes: Soft, Hypoactive Bowel Sounds ...Rectal Exam: Yes: Deferred Genitourinary: Yes: Tobar Present Breast(s): Yes: WNL Musculoskeletal: Yes: Other (less jt pains) Edema: No Peripheral Pulses WNL: Yes Integumentary: Yes: WNL Neurological: Yes: WNL ...Motor Strength: WNL Psychiatric: Yes: WNL Labs: CBC, BMP 12/04/16 05:15 12/04/16 05:15 INR, PTT INR 1.27 (0.82-1.09) H 12/03/16 10:10 Problem List - Problems (1) Hyponatremia Code(s): E87.1 - HYPO-OSMOLALITY AND HYPONATREMIA Assessment/Plan echo? done agree w atbx pt had h/o stent ? x 1 iv and boluses given to up bp wach vss pee[place]e in [place] i o humaira to trend down [place]
[2016-12-04] MEDS ORDERED: HEPARIN INFUSION - 500 ML IVPB ONE (11:59)
[2016-12-04] MEDS: HEPARIN - 25,000 UNIT in SODIUM CHLORIDE 495 ML IV SCH (12:22)
--- NOTE | 2016-12-04 13:47 | EKG ---
Test Reason : Blood Pressure : / mmHG Vent. Rate : 079 BPM Atrial Rate : 079 BPM P-R Int : 154 ms QRS Dur : 162 ms QT Int : 442 ms P-R-T Axes : 013 -39 156 degrees QTc Int : 506 ms NORMAL SINUS RHYTHM LEFT AXIS DEVIATION LEFT BUNDLE BRANCH BLOCK ABNORMAL ECG WHEN COMPARED WITH ECG OF 03-DEC-2016 14:30, NO SIGNIFICANT CHANGE WAS FOUND Confirmed by ELLEN RAZA, NADEGE ([id number]) on 12/04/2016 1:47:28 PM Referred By: FOX MCFARLAND Confirmed By:NADEGE HUGHES MD
--- NOTE | 2016-12-04 14:24 | CONSULT ---
Consult Consult Specialty:: Nephrology Reason for Consultation:: hyponatremia - History of Present Illness Chief Complaint: persistent joint pain History of Present Illness: Pt is an 86 year old male with pmhx of HTN, chol and arthritis who presents to the ER with persistent joint pain. He was found to have elevated troponin and admitted to the hospital. I was called to evaluate the pt for hyponatremia. He was also found to have bacteremia. He says he had 6 teeth extracted about one week ago. He tool one day of antibiotic for it. He also did have diarrhea. He denies shortness of breath. He denies history of kidney disease. He denies excess water intake. 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: Dementia (very mild) Cardio/Vascular: Yes: HTN, Hyperlipdemia Gastrointestinal: Yes: Diverticulitis, GERD Hepatobiliary: Yes: Cholelithiasis Musculoskeletal: Yes: Osteoarthritis - Past Surgical History Past Surgical History: Yes: None - Alcohol/Substance Use Hx Alcohol Use: No - Smoking History Smoking history: Never smoked Have you smoked in the past 12 months: No If you are a former smoker, when did you quit?: 35YRS AGO - Social History ADL: Independent History of Recent Travel: No Home Medications - Allergies Allergies/Adverse Reactions: Allergies Allergy/AdvReac Type Severity Reaction Status Date / Time No Known Drug Allergies Allergy Verified 04/08/13 10:45 - Home Medications Home Medications: Ambulatory Orders Aspirin Coated [Ecotrin -] 81 mg PO DAILY 01/14/12 Lisinopril [Prinivil] 10 mg PO DAILY 01/14/12 Omeprazole [Prilosec (RX)] 20 mg PO DAILY #1 capsule 09/20/12 Metoprolol Succinate [Toprol XL -] 25 mg PO DAILY #1 tab.sr.24h 04/13/13 Pravastatin Sodium [Pravachol (Nf)] 20 mg PO HS 09/08/15 Family Disease History - Family Disease History Family History: Denies Review of Systems - Review of Systems Constitutional: reports: Chills, Malaise Eyes: reports: No Symptoms HENT: reports: No Symptoms Neck: reports: No Symptoms Cardiovascular: reports: No Symptoms Respiratory: reports: SOB on Exertion Gastrointestinal: reports: No Symptoms Genitourinary: reports: No Symptoms Musculoskeletal: reports: Joint Pain Integumentary: reports: No Symptoms Neurological: reports: No Symptoms Endocrine: reports: No Symptoms Hematology/Lymphatic: reports: No Symptoms Psychiatric: reports: No Symptoms Physical Exam Vital Signs: Vital Signs Temperature 99.3 F 12/04/16 14:00 Pulse Rate 86 12/04/16 14:00 Respiratory Rate 22 12/04/16 14:00 Blood Pressure 94/70 12/04/16 14:00 O2 Sat by Pulse Oximetry (%) 98 12/04/16 09:00 Constitutional: Yes: Calm Eyes: Yes: Conjunctiva Clear HENT: Yes: Atraumatic Neck: Yes: Supple Cardiovascular: Yes: S1, S2 Respiratory: Yes: CTA Bilaterally, On Nasal O2 Gastrointestinal: Yes: Soft Renal/: Yes: Incontinence Musculoskeletal: Yes: WNL Edema: No Neurological: Yes: Oriented Psychiatric: Yes: Oriented Labs: CBC, BMP 12/04/16 05:15 12/04/16 05:15 Laboratory Tests 12/02/16 12/02/16 12/03/16 18:38 18:40 01:10 Sodium 132 L Potassium 3.2 L D Chloride Carbon Dioxide Anion Gap BUN 30 H D Creatinine 1.2 D Random Glucose Creatine Kinase 4508 H D 3431 H D Troponin I 12/03/16 12/03/16 12/04/16 01:10 15:27 05:15 Sodium 131 L 134 L Potassium 3.6 3.7 Chloride 99 98 Carbon Dioxide 21 23 Anion Gap 11 13 BUN 27 H 27 H Creatinine 0.9 D 1.0 Random Glucose 109 H D Creatine Kinase Troponin I 9.89 H* D Imaging - Results Chest X-ray: Report Reviewed Problem List - Problems (1) Elevated troponin level Code(s): R74.8 - ABNORMAL LEVELS OF OTHER SERUM ENZYMES (2) Hypokalemia Code(s): E87.6 - HYPOKALEMIA (3) Hyponatremia Code(s): E87.1 - HYPO-OSMOLALITY AND HYPONATREMIA (5) Bacteremia Code(s): R78.81 - BACTEREMIA Assessment/Plan Current Medications Generic Name Dose Route Start Last Admin Trade Name Freq PRN Reason Stop Dose Admin Acetaminophen 325 mg 12/03/16 10:46 12/04/16 09:27 Tylenol - PO 325 mg Q6H PRN Administration FEVER OR PAIN Aspirin 81 mg 12/03/16 10:00 12/04/16 09:26 Asa - PO 81 mg DAILY FIDELIA Administration Clopidogrel Bisulfate 75 mg 12/04/16 10:00 12/04/16 09:27 Plavix - PO 75 mg DAILY FIDELIA Administration Heparin Sodium (Porcine) 1,000 unit 12/03/16 09:45 Heparin - IVPUSH PRN PRN Heparin Heparin Sodium (Porcine) 5,000 unit 12/03/16 09:45 12/04/16 07:55 Heparin - IVPUSH 5,000 unit PRN PRN Administration Heparin Heparin Sodium (Porcine) 25, 500 mls @ 20 mls/hr 12/03/16 10:30 12/04/16 12:22 000 unit/ Sodium Chloride IV 25 mls/hr TITR FIDELIA Administration Protocol 1,000 UNIT/HR Sodium Chloride 1,000 mls @ 100 mls/hr 12/04/16 11:00 12/04/16 09:30 1/2 Normal Saline IV 100 mls/hr ASDIR FIDELIA Administration Pantoprazole Sodium 20 mg 12/03/16 10:00 12/04/16 09:27 Protonix - PO 20 mg DAILY FIDELIA Administration Impression 1. hyponatremia 2. hypokalemia 3. nstemi 4. bacteremia 5. hypotension 6. diarrhea resolved Plan - sodium is improving - switch fluids to 1/2 ns to ns and decrease rate - echo reviewed - cardio input appreciated - repeat cxr in am - follow up cultures - cont abx - will follow Dr Heredia
[2016-12-04] MEDS: SODIUM CHLORIDE 1,000 ML IV SCH (14:58)
[2016-12-04] MEDS: cefTRIAXone 2 GM/100 ML BAG (PRE-DOCKED) IVPB SCH (16:11)
[2016-12-04] MEDS: BENZOCAINE/MENTH/CETYLPYRD CL 1 EACH LOZENGE MM PRN (16:17)
[2016-12-04] MEDS ORDERED: POLYETHYLENE GLYCOL 3350 119 GM BTL PO ONE (23:00)
[2016-12-05 07:32] LABS: MCH 33.1 pg (25.7-33.7); MCHC 34.6 g/dl (32.0-35.9); MEAN CELL VOLUME 95.8 fl (80-96); MEAN PLT VOLUME 9.3 fl (7.5-11.1); PLATELET COUNT 133 K/MM3 (134-434); RDW 12.9 % (11.9-15.9); WHITE BLOOD COUNT 13.9 K/mm3 (4.0-10.0)
--- NOTE | 2016-12-05 08:49 | PN ---
Progress Note, Physician Chief Complaint: ID Ceftriaxone Alert NAD - Current Medication List Current Medications: Active Medications Acetaminophen (Tylenol -) 325 mg PO Q6H PRN PRN Reason: FEVER OR PAIN Last Admin: 12/04/16 23:36 Dose: 325 mg Aspirin (Asa -) 81 mg PO DAILY [facility] Last Admin: 12/04/16 09:26 Dose: 81 mg Benzocaine/Menthol (Cepacol Lozenge -) 1 each MM Q4H PRN PRN Reason: SORE THROAT Last Admin: 12/04/16 16:17 Dose: 1 each Ceftriaxone Sodium (Rocephin 2gm Ivpb (Pre-Docked)) 2 gm IVPB DAILY FIDELIA PRN Reason: Protocol Last Admin: 12/04/16 16:11 Dose: 2 gm Clopidogrel Bisulfate (Plavix -) 75 mg PO DAILY [facility] Last Admin: 12/04/16 09:27 Dose: 75 mg Heparin Sodium (Porcine) (Heparin -) 1,000 unit IVPUSH PRN PRN PRN Reason: Heparin Heparin Sodium (Porcine) (Heparin -) 5,000 unit IVPUSH PRN PRN PRN Reason: Heparin Last Admin: 12/04/16 07:55 Dose: 5,000 unit Heparin Sodium (Porcine) 25, (000 unit/ Sodium Chloride) 500 mls @ 20 mls/hr IV TITR FIDELIA; 1,000 UNIT/HR PRN Reason: Protocol Last Admin: 12/04/16 12:22 Dose: 25 mls/hr Sodium Chloride (Normal Saline -) 1,000 mls @ 75 mls/hr IV ASDIR FIDELIA Last Admin: 12/04/16 14:58 Dose: 75 mls/hr Metoprolol Succinate (Toprol Xl -) 25 mg PO BID [facility] Pantoprazole Sodium (Protonix -) 20 mg PO DAILY [facility] Last Admin: 12/04/16 09:27 Dose: 20 mg - Objective Vital Signs: Vital Signs Temperature 98.4 F 12/05/16 04:47 Pulse Rate 118 H 12/05/16 07:36 Respiratory Rate 21 12/05/16 07:36 Blood Pressure 132/71 12/05/16 07:36 O2 Sat by Pulse Oximetry (%) 100 12/05/16 04:47 Constitutional: Yes: No Distress Neck: Yes: WNL, Supple Cardiovascular: Yes: Regular Rate and Rhythm, S1, S2 Respiratory: Yes: WNL, Regular, CTA Bilaterally Gastrointestinal: Yes: WNL, Normal Bowel Sounds, Soft. No: Tenderness, Tenderness, Epigastrium Extremities: No: Cold, Cool, Cyanosis Edema: No Labs: CBC, BMP 12/05/16 05:35 12/04/16 05:15 INR, PTT INR 1.27 (0.82-1.09) H 12/03/16 10:10 Problem List - Problems (1) Bacteremia due to Gram-positive bacteria Code(s): R78.81 - BACTEREMIA (2) Endocarditis Code(s): I38 - ENDOCARDITIS, VALVE UNSPECIFIED Assessment/Plan Microbiology 12/03/16 13:00 Blood - Peripheral Venous Blood Culture - Preliminary Strep Agalactiae Group B 12/03/16 13:00 Blood - Peripheral Venous Blood Culture - Preliminary Strep Agalactiae Group B Laboratory Tests 12/03/16 12/04/16 12/04/16 10:10 05:15 05:15 WBC Hgb Plt Count ESR 67 H BUN 27 H Creatinine 1.0 Creat Clearance w eGFR > 60 C-Reactive Protein 33.9 H Ur Leukocyte Esterase Urine RBC Urine WBC 12/04/16 12/05/16 11:00 05:35 WBC 13.9 H Hgb 13.0 Plt Count 133 L ESR BUN Creatinine Creat Clearance w eGFR C-Reactive Protein Ur Leukocyte Esterase Trace Urine RBC 3 Urine WBC 12 Assessment Group B strep bacteremia ? source Plan Ceftriaxone 2 grm daily Repeat the blood cultures x 2 Consider RADHA Rudolph MD
[2016-12-05] MEDS: CLOPIDOGREL BISULFATE 75 MG TABLET (FP) PO SCH (09:17)
[2016-12-05] MEDS: ASPIRIN 81 MG CHEWABLE TABLETS PO SCH (09:17)
[2016-12-05] MEDS: PANTOPRAZOLE 20 MG TABLET (FP) PO SCH (09:17)
[2016-12-05] MEDS: METOPROLOL SUCCINATE 25 MG TAB.SR.24H (FP) PO SCH ×2 (09:17→21:50)
[2016-12-05] MEDS: cefTRIAXone 2 GM/100 ML BAG (PRE-DOCKED) IVPB SCH (09:17)
[2016-12-05] MEDS: HEPARIN NA (PORCINE) 5,000 UNITS/ML 1ML VIAL IVPUSH PRN ×2 (09:18→21:50)
[2016-12-05] MEDS: HEPARIN - 25,000 UNIT in SODIUM CHLORIDE 495 ML IV SCH ×2 (09:18→11:46)
[2016-12-05] MEDS: ACETAMINOPHEN 325 MG TABLET (FP) PO PRN (09:20)
--- NOTE | 2016-12-05 09:49 | PN ---
Progress Note (short form) - Note Progress Note: s: no cp sob palps dizzy; +fever this am again ex cigs o: Vital Signs Temp 101.8 F H 12/05/16 09:19 Pulse 154 H 12/05/16 09:19 Resp 20 12/05/16 09:19 BP 128/68 12/05/16 09:19 Pulse Ox 100 12/05/16 04:47 Intake & Output 12/04/16 12/04/16 12/05/16 11:59 23:59 11:59 Intake Total 410 2620 1050 Output Total 100 1000 700 Balance 310 1620 350 Weight 191 lb 2.252 oz Intake: IV 220 1300 1050 Heparin - 25,000 Unit In 220 300 300 Normal Saline - 495 ml @ 1,000 UNIT/HR 20 mls/hr IV TITR FIDELIA Rx#: [id number] Normal Saline - 500 ml @ 500 500 mls/hr IV ONCE ONE Rx #:[id number] 1/2 Normal Saline 1,000 300 ml @ 100 mls/hr IV ASDIR FIDELIA Rx#:[id number] Normal Saline - 1,000 ml 200 750 @ 75 mls/hr IV ASDIR FIDELIA Rx#:[id number] IVPB 600 Oral 190 720 Output: Urine 100 1000 700 Void 100 Tobar 1000 700 Other: Voiding Method Incontinent Indwelling Catheter Indwelling Catheter # Unmeasured Voids Void 1 Weight Measurement Method Built in [facility] Constitutional: Yes: Well Nourished, No Distress Eyes: No: Sclera Icterus HENT: No: Nasal Congestion Neck: No: Decreased ROM Respiratory: Yes: CTA Bilaterally. No: Accessory Muscle Use, Rales, Wheezes Gastrointestinal: Yes: Normal Bowel Sounds. No: Distention, Hepatomegaly, Palpable Mass, Tenderness Cardiovascular: Yes: tachy, irreg JVD: No Carotid Bruit: No PMI: Non-Displaced Heart Sounds: Yes: S1, S2. No: Gallop Murmur: No: Systolic Murmur, Diastolic Murmur Extremities: No: Cold, Cyanosis Edema: No Integumentary: No: Jaundice diaphoresis Neurological: Yes: Alert, awake, appropriate Psychiatric: No: Agitated Current Medications Generic Name Dose Route Start Last Admin Trade Name Freq PRN Reason Stop Dose Admin Acetaminophen 325 mg 12/03/16 10:46 12/05/16 09:20 Tylenol - PO 325 mg Q6H PRN Administration FEVER OR PAIN Aspirin 81 mg 12/03/16 10:00 12/05/16 09:17 Asa - PO 81 mg DAILY FIDELIA Administration Benzocaine/Menthol 1 each 12/04/16 15:29 12/04/16 16:17 Cepacol Lozenge - MM 1 each Q4H PRN Administration SORE THROAT Ceftriaxone Sodium 2 gm 12/04/16 15:45 12/05/16 09:17 Rocephin 2gm Ivpb (Pre-Docked) IVPB 2 gm DAILY FIDELIA Administration Protocol Clopidogrel Bisulfate 75 mg 12/04/16 10:00 12/05/16 09:17 Plavix - PO 75 mg DAILY FIDELIA Administration Heparin Sodium (Porcine) 1,000 unit 12/03/16 09:45 Heparin - IVPUSH PRN PRN Heparin Heparin Sodium (Porcine) 5,000 unit 12/03/16 09:45 12/05/16 09:18 Heparin - IVPUSH 5,000 unit PRN PRN Administration Heparin Heparin Sodium (Porcine) 25, 500 mls @ 20 mls/hr 12/03/16 10:30 12/05/16 09:18 000 unit/ Sodium Chloride IV 28 mls/hr TITR FIDELIA Administration Protocol 1,000 UNIT/HR Sodium Chloride 1,000 mls @ 75 mls/hr 12/04/16 14:30 12/04/16 14:58 Normal Saline - IV 75 mls/hr ASDIR FIDELIA Administration Metoprolol Succinate 25 mg 12/05/16 10:00 12/05/16 09:17 Toprol Xl - PO 25 mg BID FIDELIA Administration Metoprolol Tartrate 5 mg 12/05/16 09:47 Lopressor Injection - IVPUSH Q4H PRN TACHYCARDIA Pantoprazole Sodium 20 mg 12/03/16 10:00 12/05/16 09:17 Protonix - PO 20 mg DAILY FIDELIA Administration Laboratory Last Values WBC 13.9 K/mm3 (4.0-10.0) H 12/05/16 05:35 RBC 3.94 M/mm3 (4.00-5.60) L 12/05/16 05:35 Hgb 13.0 GM/dL (11.7-16.9) 12/05/16 05:35 Hct 37.7 % (35.4-49) 12/05/16 05:35 MCV 95.8 fl (80-96) 12/05/16 05:35 MCH 33.1 pg (25.7-33.7) 12/05/16 05:35 MCHC 34.6 g/dl (32.0-35.9) 12/05/16 05:35 RDW 12.9 % (11.9-15.9) 12/05/16 05:35 Plt Count 133 K/MM3 (134-434) L 12/05/16 05:35 MPV 9.3 fl (7.5-11.1) 12/05/16 05:35 Neutrophils % 90.4 % (42.8-82.8) H 12/04/16 05:15 Lymphocytes % 3.4 % (8-40) L D 12/04/16 05:15 Monocytes % 6.0 % (3.8-10.2) 12/04/16 05:15 Eosinophils % 0.1 % (0-4.5) D 12/04/16 05:15 Basophils % 0.1 % (0-2.0) 12/04/16 05:15 ESR 67 mm/hr (0-20) H 12/04/16 05:15 INR 1.27 (0.82-1.09) H 12/03/16 10:10 PTT (Actin FS) 36.2 SECONDS (26.9-34.4) H D 12/05/16 05:35 Sodium 134 mmol/L (136-145) L 12/04/16 05:15 Potassium 3.7 mmol/L (3.5-5.1) 12/04/16 05:15 Chloride 98 mmol/L (98-107) 12/04/16 05:15 Carbon Dioxide 23 mmol/L (21-32) 12/04/16 05:15 Anion Gap 13 (8-16) 12/04/16 05:15 BUN 27 mg/dL (7-18) H 12/04/16 05:15 Creatinine 1.0 mg/dL (0.7-1.3) 12/04/16 05:15 Creat Clearance w eGFR > 60 (>60) 12/04/16 05:15 Random Glucose 86 mg/dL (74-106) D 12/04/16 05:15 Lactic Acid 1.4 mmol/L (0.4-2.0) 12/04/16 11:05 Uric Acid 4.0 mg/dL (2.6-7.2) 12/04/16 05:15 Calcium 8.4 mg/dL (8.5-10.1) L 12/04/16 05:15 Total Bilirubin 1.4 mg/dL (0.2-1.0) H D 12/04/16 05:15 AST 98 U/L (15-37) H D 12/04/16 05:15 ALT 42 U/L (12-78) 12/04/16 05:15 Alkaline Phosphatase 49 U/L (45-117) 12/04/16 05:15 Creatine Kinase 3431 IU/L (39-308) H D 12/03/16 01:10 Creatine Kinase Index 1.1 % (0.0-5.0) 12/03/16 01:10 CK-MB (CK-2) 39.203 ng/ml (0.5-3.6) H 12/03/16 01:10 CK-MB (CK-2) Rel Index Cancelled 12/02/16 18:40 Troponin I 9.89 ng/ml (0.00-0.05) H* D 12/03/16 15:27 C-Reactive Protein 33.9 MG/DL (0.00-0.3) H 12/03/16 10:10 Total Protein 5.5 g/dl (6.4-8.2) L D 12/04/16 05:15 Albumin 2.6 g/dl (3.4-5.0) L D 12/04/16 05:15 Total Amylase 16 U/L (25-115) L 12/04/16 05:15 Urine Color Dkyellow 12/04/16 11:00 Urine Appearance Slcloudy 12/04/16 11:00 Urine pH 5.0 (5.0-8.0) 12/04/16 11:00 Ur Specific [place] 1.020 (1.005-1.025) 12/04/16 11:00 Urine Protein 1+ (NEGATIVE) H 12/04/16 11:00 Urine Glucose (UA) Negative (NEGATIVE) 12/04/16 11:00 Urine Ketones Negative (NEGATIVE) 12/04/16 11:00 Urine Blood 2+ (NEGATIVE) H 12/04/16 11:00 Urine Nitrite Negative (NEGATIVE) 12/04/16 11:00 Urine Bilirubin Negative (NEGATIVE) 12/04/16 11:00 Urine Urobilinogen Negative mg/dL (0.2-1.0) 12/04/16 11:00 Ur Leukocyte Esterase Trace (NEGATIVE) 12/04/16 11:00 Urine RBC 3 /hpf (0-3) 12/04/16 11:00 Urine WBC 12 /hpf (3-5) 12/04/16 11:00 Ur Epithelial Cells Rare /hpf (FEW) 12/04/16 11:00 Urine Bacteria Few /hpf (NONE SEEN) 12/03/16 01:10 Granular Casts 3 /lpf 12/04/16 11:00 Urine Mucus Rare 12/04/16 11:00 Rheumatoid Arth Biomark 18.0 IU/mL (0.0-13.9) H 12/04/16 05:15 Lyme Screen IgG & IgM <0.91 ISR (0.00-0.90) 12/03/16 10:10 tele: afib with rvr 150s at times echo 08/2016: low nl lvef, nl rv, mild tr cxr: clear lungs ecg 12/02/16: sr, nl pr, old lbbb echo 11/2016: nl lvef, apicalseptal AK, nl rv size, mild mr, mild tr, nl rvsp Assessment/Plan hx cad s/p pci 2012, here with NSTEMI: -pt w/o cardiac symptoms but troponin elevated up to 20 here, now trending down -ecg with old lbbb -echo here with nl lvef, apical WMA's -given the high trop values this seems more likely to be ACS/NSTEMI, thus have been treating with asa/plavix, hep gtt (started 12/03 afternoon) -cont to monitor on tele -sunday on hold due to low bp -cont bb -statin held due to rising lfts -will need ischemic eval after infectious issues resolved sepsis, +bld cxs: -febrile still -cont abx per ID -TTE shows no signs endocarditis but would need RADHA to r/o more definitively. Currently no severe valve issues and no signs chf so will monitor clinical status for now given his current NSTEMI as well. HTN: -bp on low side likely due to sepsis -holding sunday -resumed bb due to afib with rvr HPL: -statin held due to rising lfts, possibly from sepsis, cont to trend margarita -slightly prerenal on initial labs, likely from diarrhea, sepsis -cr improved with ivfs, monitor afib: -new onset here with rvr -likely rvr driven by sepsis, cont abx, ivfs -will resume bb -monitor on tele -cont hep gtt
[2016-12-05] MEDS ORDERED: morphine CARPU-JECT 2 MG/1 ML DISP.SYRIN ONE (09:54)
[2016-12-05] MEDS ORDERED: morphine CARPU-JECT 2 MG/1 ML DISP.SYRIN IVPB ONE (10:00)
[2016-12-05 10:35] LABS: TROPONIN I 2.48 ng/ml (0.00-0.05)
--- NOTE | 2016-12-05 13:30 | PN ---
Progress Note, Physician Chief Complaint: py back pain when bed lifted lot of pain no other complaints - Current Medication List Current Medications: Active Medications Acetaminophen (Tylenol -) 325 mg PO Q6H PRN PRN Reason: FEVER OR PAIN Last Admin: 12/05/16 09:20 Dose: 325 mg Aspirin (Asa -) 81 mg PO DAILY [facility] Last Admin: 12/05/16 09:17 Dose: 81 mg Benzocaine/Menthol (Cepacol Lozenge -) 1 each MM Q4H PRN PRN Reason: SORE THROAT Last Admin: 12/04/16 16:17 Dose: 1 each Ceftriaxone Sodium (Rocephin 2gm Ivpb (Pre-Docked)) 2 gm IVPB DAILY [facility] PRN Reason: Protocol Last Admin: 12/05/16 09:17 Dose: 2 gm Clopidogrel Bisulfate (Plavix -) 75 mg PO DAILY [facility] Last Admin: 12/05/16 09:17 Dose: 75 mg Heparin Sodium (Porcine) (Heparin -) 1,000 unit IVPUSH PRN PRN PRN Reason: Heparin Heparin Sodium (Porcine) (Heparin -) 5,000 unit IVPUSH PRN PRN PRN Reason: Heparin Last Admin: 12/05/16 09:18 Dose: 5,000 unit Heparin Sodium (Porcine) 25, (000 unit/ Sodium Chloride) 500 mls @ 20 mls/hr IV TITR FIDELIA; 1,000 UNIT/HR PRN Reason: Protocol Last Admin: 12/05/16 11:46 Dose: Not Given Sodium Chloride (Normal Saline -) 1,000 mls @ 75 mls/hr IV ASDIR [facility] Last Admin: 12/04/16 14:58 Dose: 75 mls/hr Metoprolol Succinate (Toprol Xl -) 25 mg PO BID [facility] Last Admin: 12/05/16 09:17 Dose: 25 mg Metoprolol Tartrate (Lopressor Injection -) 5 mg IVPUSH Q4H PRN PRN Reason: TACHYCARDIA Pantoprazole Sodium (Protonix -) 20 mg PO DAILY [facility] Last Admin: 12/05/16 09:17 Dose: 20 mg - Objective Vital Signs: Vital Signs Temperature 98.9 F 12/05/16 10:30 Pulse Rate 101 H 12/05/16 10:30 Respiratory Rate 20 12/05/16 09:19 Blood Pressure 128/68 12/05/16 09:19 O2 Sat by Pulse Oximetry (%) 100 12/05/16 04:47 Constitutional: Yes: Calm Eyes: Yes: WNL HENT: Yes: WNL Neck: Yes: WNL Cardiovascular: Yes: Pulse Irregular Respiratory: Yes: WNL Gastrointestinal: Yes: WNL ...Rectal Exam: Yes: Deferred Genitourinary: Yes: WNL Breast(s): Yes: WNL Musculoskeletal: Yes: Back Pain Extremities: Yes: WNL Edema: No Integumentary: Yes: WNL Wound/Incision: Yes: Clean/Dry Neurological: Yes: WNL, Paresthesia ...Motor Strength: WNL Psychiatric: Yes: WNL Labs: CBC, BMP 12/05/16 05:35 INR, PTT INR 1.27 (0.82-1.09) H 12/03/16 10:10 Problem List - Problems (1) Hyponatremia Code(s): E87.1 - HYPO-OSMOLALITY AND HYPONATREMIA Assessment/Plan t/s l/s xray morf\phine for pain cont all tx as is
[2016-12-05 13:49] LABS: ALK PHOS 64 U/L (45-117); ANION GAP 9 (8-16); BILIRUBIN,TOTAL 0.5 mg/dL (0.2-1.0); CALCIUM 7.9 mg/dL (8.5-10.1); CO2 24 mmol/L (21-32); CREATININE 0.9 mg/dL (0.7-1.3); GLUCOSE,RANDOM 122 mg/dL (74-106); SGOT/AST 65 U/L (15-37); SGPT/ALT 44 U/L (12-78); TOT PROT 4.7 g/dl (6.4-8.2)
[2016-12-05 14:16] LABS: ALDOLASE 11.1 U/L (3.3-10.3)
[2016-12-05] MEDS: SODIUM CHLORIDE 1,000 ML IV SCH (14:59)
[2016-12-05] MEDS: morphine CARPU-JECT 2 MG/1 ML DISP.SYRIN IVPUSH PRN (15:00)
--- NOTE | 2016-12-05 16:14 | PN ---
Physical Exam: SUBJECTIVE: Patient seen and examined by me this PM - Doing much better. Complaining of constipation and L shoulder pain. Feels much improved. No major overnight events. - Blood cx's 2/2 + for GBS. Currently on rocephin 2g IV for tx. - Febrile to 101.8, mild tachycardia this AM. - WBC downtrending 15.2 -> 13.9 - Urine Cx with no growth - Denies any CP, SOB, cough, chills, N/V, rashes, BL LE swelling, KIRBY, blurry vision. Endorses feeling feverish this AM. OBJECTIVE: Vital Signs Period Temp Pulse Resp BP Sys/Osman Pulse Ox Last 24 Hr 98.4 F-101.8 F 65-154 16-21 91-133/45-87 100-100 GENERAL: Awake, alert, and fully oriented, in no acute distress. Laying in bed HEAD: Normal with no signs of trauma. EYES: sclera anicteric, conjunctiva clear. No lid lag. No evidence of conjunctival hemorrhages NECK: Decreased range of motion limited by pain. No lymphadenopathy, JVD, or masses. LUNGS: Breath sounds equal, clear to auscultation bilaterally. No wheezes, and no crackles. No accessory muscle use. HEART: Grade 2/6 systolic murmur at RUSB likely . Prominent S2. Irregular rhythm, normal S1 and S2 without rub or gallop. ABDOMEN: Soft, nontender, not distended, normoactive bowel sounds, no guarding, no rebound, no masses. No hepatomegaly or splenomegaly. Prior midline peripumbilical abdominal scar. MUSCULOSKELETAL: BL pain w/ movement in shoulder, worse on L side. UPPER EXTREMITIES: No splinter hemmorhages or oslers nodes. 2+ pulses, warm, well-perfused. No cyanosis. No clubbing. Cap refill <2 seconds. IV site on L side, no erythema or edema. LOWER EXTREMITIES: No nodules. 2+ pulses, warm, well-perfused. No calf tenderness. No peripheral edema. NEUROLOGICAL: Cranial nerves II-XII grossly intact. Normal speech. Gait not evaluated. Decreased manager outreach strength in R hand. PSYCHIATRIC: Cooperative. Good eye contact. Constricted affect. SKIN: Warm, dry, normal turgor. No lesions noted. Laboratory Results - last 24 hr CBC, BMP 12/05/16 05:35 12/05/16 13:00 12/03/16 12/04/16 12/04/16 10:10 05:15 11:00 WBC RBC Hgb Hct MCV MCH MCHC RDW Plt Count MPV PTT (Actin FS) Sodium Potassium Chloride Carbon Dioxide Anion Gap BUN Creatinine Creat Clearance w eGFR Random Glucose Calcium Total Bilirubin AST ALT Alkaline Phosphatase Creatine Kinase Creatine Kinase Index CK-MB (CK-2) CK-MB (CK-2) Rel Index Troponin I Total Protein Albumin Aldolase 11.1 H Urine Color Dkyellow Urine Appearance Slcloudy Urine pH 5.0 Ur Specific [place] 1.020 Urine Protein 1+ H Urine Glucose (UA) Negative Urine Ketones Negative Urine Blood 2+ H Urine Nitrite Negative Urine Bilirubin Negative Urine Urobilinogen Negative Ur Leukocyte Esterase Trace Urine RBC 3 Urine WBC 12 Ur Epithelial Cells Rare Granular Casts 3 Urine Mucus Rare Rheumatoid Arth Biomark 18.0 H Lyme Screen IgG & IgM <0.91 12/04/16 12/05/16 12/05/16 14:30 05:35 05:35 WBC 13.9 H RBC 3.94 L Hgb 13.0 Hct 37.7 MCV 95.8 MCH 33.1 MCHC 34.6 RDW 12.9 Plt Count 133 L MPV 9.3 PTT (Actin FS) 55.0 H D 36.2 H D Sodium Potassium Chloride Carbon Dioxide Anion Gap BUN Creatinine Creat Clearance w eGFR Random Glucose Calcium Total Bilirubin AST ALT Alkaline Phosphatase Creatine Kinase Creatine Kinase Index CK-MB (CK-2) CK-MB (CK-2) Rel Index Troponin I Total Protein Albumin Aldolase Urine Color Urine Appearance Urine pH Ur Specific [place] Urine Protein Urine Glucose (UA) Urine Ketones Urine Blood Urine Nitrite Urine Bilirubin Urine Urobilinogen Ur Leukocyte Esterase Urine RBC Urine WBC Ur Epithelial Cells Granular Casts Urine Mucus Rheumatoid Arth Biomark Lyme Screen IgG & IgM 12/05/16 12/05/16 12/05/16 05:35 07:30 07:30 WBC RBC Hgb Hct MCV MCH MCHC RDW Plt Count MPV PTT (Actin FS) Sodium Potassium Chloride Carbon Dioxide Anion Gap BUN Creatinine Creat Clearance w eGFR Random Glucose Calcium Total Bilirubin AST ALT Alkaline Phosphatase Creatine Kinase 603 H Creatine Kinase Index Cancelled CK-MB (CK-2) Cancelled CK-MB (CK-2) Rel Index Cancelled Troponin I Cancelled 2.48 H* D Total Protein Albumin Aldolase Urine Color Urine Appearance Urine pH Ur Specific [place] Urine Protein Urine Glucose (UA) Urine Ketones Urine Blood Urine Nitrite Urine Bilirubin Urine Urobilinogen Ur Leukocyte Esterase Urine RBC Urine WBC Ur Epithelial Cells Granular Casts Urine Mucus Rheumatoid Arth Biomark Lyme Screen IgG & IgM 12/05/16 13:00 WBC RBC Hgb Hct MCV MCH MCHC RDW Plt Count MPV PTT (Actin FS) Sodium 136 Potassium 3.5 Chloride 103 Carbon Dioxide 24 Anion Gap 9 BUN 24 H Creatinine 0.9 Creat Clearance w eGFR > 60 Random Glucose 122 H D Calcium 7.9 L Total Bilirubin 0.5 D AST 65 H D ALT 44 Alkaline Phosphatase 64 D Creatine Kinase Creatine Kinase Index CK-MB (CK-2) CK-MB (CK-2) Rel Index Troponin I Total Protein 4.7 L Albumin 2.0 L D Aldolase Urine Color Urine Appearance Urine pH Ur Specific [place] Urine Protein Urine Glucose (UA) Urine Ketones Urine Blood Urine Nitrite Urine Bilirubin Urine Urobilinogen Ur Leukocyte Esterase Urine RBC Urine WBC Ur Epithelial Cells Granular Casts Urine Mucus Rheumatoid Arth Biomark Lyme Screen IgG & IgM Microbiology 12/03/16 13:00 Blood - Peripheral Venous Blood Culture - Final Strep Agalactiae Group B 12/04/16 11:00 Urine - Urine Tobar Urine Culture - Final NO GROWTH OBTAINED 12/03/16 13:00 Blood - Peripheral Venous Blood Culture - Preliminary Strep Agalactiae Group B Active Medications Generic Name Dose Route Start Last Admin Trade Name Freq PRN Reason Stop Dose Admin Acetaminophen 325 mg 12/03/16 10:46 12/05/16 09:20 Tylenol - PO 325 mg Q6H PRN Administration FEVER OR PAIN Aspirin 81 mg 12/03/16 10:00 12/05/16 09:17 Asa - PO 81 mg DAILY FIDELIA Administration Benzocaine/Menthol 1 each 12/04/16 15:29 12/04/16 16:17 Cepacol Lozenge - MM 1 each Q4H PRN Administration SORE THROAT Ceftriaxone Sodium 2 gm 12/04/16 15:45 12/05/16 09:17 Rocephin 2gm Ivpb (Pre-Docked) IVPB 2 gm DAILY FIDELIA Administration Protocol Clopidogrel Bisulfate 75 mg 12/04/16 10:00 12/05/16 09:17 Plavix - PO 75 mg DAILY FIDELIA Administration Heparin Sodium (Porcine) 1,000 unit 12/03/16 09:45 Heparin - IVPUSH PRN PRN Heparin Heparin Sodium (Porcine) 5,000 unit 12/03/16 09:45 12/05/16 09:18 Heparin - IVPUSH 5,000 unit PRN PRN Administration Heparin Heparin Sodium (Porcine) 25, 500 mls @ 20 mls/hr 12/03/16 10:30 12/05/16 11:46 000 unit/ Sodium Chloride IV Not Given TITR FIDELIA Protocol 1,000 UNIT/HR Sodium Chloride 1,000 mls @ 75 mls/hr 12/04/16 14:30 12/05/16 14:59 Normal Saline - IV 75 mls/hr ASDIR FIDELIA Administration Metoprolol Succinate 25 mg 12/05/16 10:00 12/05/16 09:17 Toprol Xl - PO 25 mg BID FIDELIA Administration Metoprolol Tartrate 5 mg 12/05/16 09:47 Lopressor Injection - IVPUSH Q4H PRN TACHYCARDIA Morphine Sulfate 2 mg 12/05/16 13:32 12/05/16 15:00 Morphine Injection - IVPUSH 12/11/16 23:59 2 mg Q6H PRN Administration PAIN Pantoprazole Sodium 20 mg 12/03/16 10:00 12/05/16 09:17 Protonix - PO 20 mg DAILY FIDELIA Administration ASSESSMENT/PLAN: Assessment: Pt is a 86 yo man w/ pmh of arthritis (OA vs RA?), HTN, HLD, who was BIBEMS from home due to inability to walk in the setting of progressive BL LE weakness of a few months duration. PE notable for BL symmetric large joint stiffness and pain with motion w/o erythema or rashes, w/ accompanying myalgias and BL UE and LE progressive weakness. Pt reports chills since admission, but remains afebrile w/ no other infectious symptoms. New Hx notable for recent dental procedure last week. Pt clinically improving w/ less joint pain, however mild febrile episode this AM. WBC count downtrending. RA factor elevated, remaining rheum work-up pending. Recent echo notable for mild MR, apical hypokinesis and no vegetations. Must consider subacute vs. acute IE as possible infectious source, despite Echo results. Abx changed to Rocephin for GBS coverage. Continue infectious vs. rheumatologic work-up. Will require a RADHA for evaluation of IE. Plan: #Suspected endocarditis - 2/2 blood cultures + for GBS - Rocephin 2g IV daily - Repeat blood cultures - Echo negative for vegetations. - Recommend RADHA #Chronic Polyarthropathy - Elevated RA factor (18) - CRP (33) elevated. Aldolase elevated (11) - Uric acid normal - Lyme titer neg - Urine cx neg - Hold statins in setting of myalgias - f/u CANDY, CCP - Monitor for infectious symptoms - Trend fever curve, WBC - Daily CBCs - Rheum consult Danilo Dumont MD, PGY1 Plan per attending, Dr. Rudolph Dispo: We will continue to follow the patient. Thank you for this consultative opportunity. Problem List - Problems (1) Elevated troponin level Code(s): R74.8 - ABNORMAL LEVELS OF OTHER SERUM ENZYMES (2) Joint pain Code(s): M25.50 - PAIN IN UNSPECIFIED JOINT Qualifiers: Joint pain location: knee Laterality: bilateral Qualified Code(s ): M25.561 - Pain in right knee Visit type - Emergency Visit Emergency Visit: No - New Patient This patient is new to me today: No - Critical Care Critical Care patient: No
--- NOTE | 2016-12-05 17:01 | PN ---
Progress Note, Physician History of Present Illness: Pt seen and examined at bedside. He is awake and appears comfortable. - Current Medication List Current Medications: Active Medications Acetaminophen (Tylenol -) 325 mg PO Q6H PRN PRN Reason: FEVER OR PAIN Last Admin: 12/05/16 09:20 Dose: 325 mg Aspirin (Asa -) 81 mg PO DAILY [facility] Last Admin: 12/05/16 09:17 Dose: 81 mg Benzocaine/Menthol (Cepacol Lozenge -) 1 each MM Q4H PRN PRN Reason: SORE THROAT Last Admin: 12/04/16 16:17 Dose: 1 each Ceftriaxone Sodium (Rocephin 2gm Ivpb (Pre-Docked)) 2 gm IVPB DAILY [facility] PRN Reason: Protocol Last Admin: 12/05/16 09:17 Dose: 2 gm Clopidogrel Bisulfate (Plavix -) 75 mg PO DAILY [facility] Last Admin: 12/05/16 09:17 Dose: 75 mg Heparin Sodium (Porcine) (Heparin -) 1,000 unit IVPUSH PRN PRN PRN Reason: Heparin Heparin Sodium (Porcine) (Heparin -) 5,000 unit IVPUSH PRN PRN PRN Reason: Heparin Last Admin: 12/05/16 09:18 Dose: 5,000 unit Heparin Sodium (Porcine) 25, (000 unit/ Sodium Chloride) 500 mls @ 20 mls/hr IV TITR [facility]; 1,000 UNIT/HR PRN Reason: Protocol Last Admin: 12/05/16 11:46 Dose: Not Given Sodium Chloride (Normal Saline -) 1,000 mls @ 75 mls/hr IV ASDIR [facility] Last Admin: 12/05/16 14:59 Dose: 75 mls/hr Metoprolol Succinate (Toprol Xl -) 25 mg PO BID [facility] Last Admin: 12/05/16 09:17 Dose: 25 mg Metoprolol Tartrate (Lopressor Injection -) 5 mg IVPUSH Q4H PRN PRN Reason: TACHYCARDIA Morphine Sulfate (Morphine Injection -) 2 mg IVPUSH Q6H PRN PRN Reason: PAIN Stop: 12/11/16 23:59 Last Admin: 12/05/16 15:00 Dose: 2 mg Pantoprazole Sodium (Protonix -) 20 mg PO DAILY [facility] Last Admin: 12/05/16 09:17 Dose: 20 mg - Objective Vital Signs: Vital Signs Temperature 98.8 F 12/05/16 14:00 Pulse Rate 102 H 12/05/16 14:00 Respiratory Rate 20 12/05/16 14:00 Blood Pressure 111/62 12/05/16 14:00 O2 Sat by Pulse Oximetry (%) 100 12/05/16 04:47 Constitutional: Yes: Calm Eyes: Yes: Conjunctiva Clear HENT: Yes: Atraumatic Cardiovascular: Yes: S1, S2 Respiratory: Yes: On Nasal O2 Gastrointestinal: Yes: Soft Genitourinary: Yes: Tobar Present Musculoskeletal: Yes: Muscle Weakness Edema: No Neurological: Yes: Oriented Labs: CBC, BMP 12/05/16 05:35 12/05/16 13:00 INR, PTT INR 1.27 (0.82-1.09) H 12/03/16 10:10 Problem List - Problems (1) Elevated troponin level Code(s): R74.8 - ABNORMAL LEVELS OF OTHER SERUM ENZYMES (2) Hypokalemia Code(s): E87.6 - HYPOKALEMIA (3) Hyponatremia Code(s): E87.1 - HYPO-OSMOLALITY AND HYPONATREMIA (5) Bacteremia Code(s): R78.81 - BACTEREMIA Assessment/Plan Current Medications Generic Name Dose Route Start Last Admin Trade Name Freq PRN Reason Stop Dose Admin Acetaminophen 325 mg 12/03/16 10:46 12/05/16 09:20 Tylenol - PO 325 mg Q6H PRN Administration FEVER OR PAIN Aspirin 81 mg 12/03/16 10:00 12/05/16 09:17 Asa - PO 81 mg DAILY [facility] Administration Benzocaine/Menthol 1 each 12/04/16 15:29 12/04/16 16:17 Cepacol Lozenge - MM 1 each Q4H PRN Administration SORE THROAT Ceftriaxone Sodium 2 gm 12/04/16 15:45 12/05/16 09:17 Rocephin 2gm Ivpb (Pre-Docked) IVPB 2 gm DAILY [facility] Administration Protocol Clopidogrel Bisulfate 75 mg 12/04/16 10:00 12/05/16 09:17 Plavix - PO 75 mg DAILY [facility] Administration Heparin Sodium (Porcine) 1,000 unit 12/03/16 09:45 Heparin - IVPUSH PRN PRN Heparin Heparin Sodium (Porcine) 5,000 unit 12/03/16 09:45 07/28/17 09:18 Heparin - IVPUSH 5,000 unit PRN PRN Administration Heparin Heparin Sodium (Porcine) 25, 500 mls @ 20 mls/hr 12/03/16 10:30 12/05/16 11:46 000 unit/ Sodium Chloride IV Not Given TITR [facility] Protocol 1,000 UNIT/HR Sodium Chloride 1,000 mls @ 75 mls/hr 12/04/16 14:30 12/05/16 14:59 Normal Saline - IV 75 mls/hr ASDIR [facility] Administration Metoprolol Succinate 25 mg 12/05/16 10:00 12/05/16 09:17 Toprol Xl - PO 25 mg BID [facility] Administration Metoprolol Tartrate 5 mg 12/05/16 09:47 Lopressor Injection - IVPUSH Q4H PRN TACHYCARDIA Morphine Sulfate 2 mg 12/05/16 13:32 12/05/16 15:00 Morphine Injection - IVPUSH 12/11/16 23:59 2 mg Q6H PRN Administration PAIN Pantoprazole Sodium 20 mg 12/03/16 10:00 12/05/16 09:17 Protonix - PO 20 mg DAILY [facility] Administration Impression 1. hyponatremia 2. hypokalemia 3. nstemi 4. bacteremia 5. hypotension 6. diarrhea resolved Plan - sodium level has normalized - decrease rate of fluids - repeat labs in am - monitor blood pressur - cont abx - will re-order cxr for am - follow up repeat cultures - will follow Dr Heredia
[2016-12-05] MEDS ORDERED: SODIUM CHLORIDE 1,000 ML IV SCH (17:03)
[2016-12-06 00:08] LABS: CYCLIC CITRULLINE PEPTIDE AB 27 units (0-19)
[2016-12-06] MEDS: ACETAMINOPHEN 325 MG TABLET (FP) PO PRN (06:28)
[2016-12-06 07:27] LABS: BASOPHIL 0.2 % (0-2.0); EOSINOPHIL 0.2 % (0-4.5); MCHC 34.2 g/dl (32.0-35.9); MEAN CELL VOLUME 96.6 fl (80-96); MEAN PLT VOLUME 9.9 fl (7.5-11.1); NEUTROPHILS 84.1 % (42.8-82.8); PLATELET COUNT 146 K/MM3 (134-434); RDW 12.9 % (11.9-15.9); WHITE BLOOD COUNT 12.5 K/mm3 (4.0-10.0)
[2016-12-06 08:00] LABS: ALBUMIN 1.9 g/dl (3.4-5.0); ANION GAP 10 (8-16); CALCIUM 7.7 mg/dL (8.5-10.1); CO2 24 mmol/L (21-32); CREATININE 0.8 mg/dL (0.7-1.3); GLUCOSE,RANDOM 105 mg/dL (74-106); SGOT/AST 66 U/L (15-37); SGPT/ALT 52 U/L (12-78)
[2016-12-06 08:02] LABS: ALK PHOS 81 U/L (45-117); TOT PROT 4.6 g/dl (6.4-8.2)
[2016-12-06] MEDS ORDERED: PT OWN MED DRAWER 7, Y5N ONE (08:04)
--- NOTE | 2016-12-06 08:34 | PN ---
Progress Note, Physician Chief Complaint: afib History of Present Illness: denies any cp/pressure/heaviness no palpitations no sob no syncope - Current Medication List Current Medications: Active Medications Acetaminophen (Tylenol -) 325 mg PO Q6H PRN PRN Reason: FEVER OR PAIN Last Admin: 12/06/16 06:28 Dose: 325 mg Aspirin (Asa -) 81 mg PO DAILY [facility] Last Admin: 12/05/16 09:17 Dose: 81 mg Benzocaine/Menthol (Cepacol Lozenge -) 1 each MM Q4H PRN PRN Reason: SORE THROAT Last Admin: 12/04/16 16:17 Dose: 1 each Ceftriaxone Sodium (Rocephin 2gm Ivpb (Pre-Docked)) 2 gm IVPB DAILY [facility] PRN Reason: Protocol Last Admin: 12/05/16 09:17 Dose: 2 gm Clopidogrel Bisulfate (Plavix -) 75 mg PO DAILY [facility] Last Admin: 12/05/16 09:17 Dose: 75 mg Heparin Sodium (Porcine) (Heparin -) 1,000 unit IVPUSH PRN PRN PRN Reason: Heparin Heparin Sodium (Porcine) (Heparin -) 5,000 unit IVPUSH PRN PRN PRN Reason: Heparin Last Admin: 12/05/16 21:50 Dose: 5,000 unit Heparin Sodium (Porcine) 25, (000 unit/ Sodium Chloride) 500 mls @ 20 mls/hr IV TITR [facility]; 1,000 UNIT/HR PRN Reason: Protocol Last Titration: 12/05/16 21:50 Dose: 1,550 unit/hr Sodium Chloride (Normal Saline -) 1,000 mls @ 65 mls/hr IV ASDIR [facility] Last Admin: 12/05/16 21:47 Dose: 65 mls/hr Metoprolol Succinate (Toprol Xl -) 25 mg PO BID [facility] Last Admin: 12/05/16 21:50 Dose: 25 mg Metoprolol Tartrate (Lopressor Injection -) 5 mg IVPUSH Q4H PRN PRN Reason: TACHYCARDIA Morphine Sulfate (Morphine Injection -) 2 mg IVPUSH Q6H PRN PRN Reason: PAIN Stop: 12/11/16 23:59 Last Admin: 12/05/16 15:00 Dose: 2 mg Pantoprazole Sodium (Protonix -) 20 mg PO DAILY [facility] Last Admin: 12/05/16 09:17 Dose: 20 mg - Objective Vital Signs: Vital Signs Temperature 98 F 12/06/16 06:00 Pulse Rate 90 12/06/16 06:00 Respiratory Rate 20 12/06/16 06:00 Blood Pressure 128/80 12/06/16 06:00 O2 Sat by Pulse Oximetry (%) 99 12/05/16 21:00 Constitutional: Yes: Well Nourished, No Distress, Calm Cardiovascular: Yes: Pulse Irregular, S1, S2. No: JVD, Gallop, Murmur Respiratory: Yes: Regular, CTA Bilaterally (anteriorly (can't sit up--back pain) ). No: Accessory Muscle Use, Rales, Wheezes Extremities: No: Cold Edema: No Neurological: Yes: Alert. No: Seizure Psychiatric: No: Agitated Labs: CBC, BMP 12/06/16 05:35 12/06/16 05:35 INR, PTT INR 1.27 (0.82-1.09) H 12/03/16 10:10 - ....Imaging EKG: Other (tele: AF with HR 90s-100s) Assessment/Plan echo 11/2016: nl lvef, apical-septal AK, nl rv size, mild mr, mild tr, nl rvsp echo 08/2016: low nl lvef, nl rv, mild tr cxr: clear lungs ecg 12/02/16: sr, nl pr, old lbbb Assessment/Plan hx cad s/p pci 2012, here with NSTEMI: -pt w/o cardiac symptoms but troponin 20 here on presentation to ER (12/02)--> trended down -ecg with old lbbb -echo here with nl lvef, apical WMA's -given the high trop values this seems more likely to be ACS/NSTEMI (possibly triggered by acute infection/inflammation), thus have been treating with asa/ plavix, hep gtt (also for new AF) -sunday on hold due to low bp -cont bb -AST alone elevated on admit, trended down. this was likely due to myocardial injury not hepatotoxicity. no other signs hepatic failure. resume statin for aggressive sec prevention of MS. -was on prava 20 at home, ? prior intolerance of other statins--start atorva 40 here and observe. monitor LFTs trend -will need ischemic eval after infectious issues resolved sepsis, +bld cxs: -strep agalact (group B) in blood first set--repeat cx's pending -last fever 12/05 am -cont abx per ID -no signs of valve failure, no clinical SBE findings -plan per ID--consider RADHA if suspicion for SBE exists, and if will change mgmt HTN: -bp on low side likely due to sepsis -holding sunday -resumed bb due to afib with rvr margarita -slightly prerenal on initial labs, likely from diarrhea, sepsis -cr improved with ivfs, monitor afib: -new onset here with rvr -likely rvr driven by sepsis, cont abx, ivfs -HRs well controlled on metopr 25 bid--cont same -CHADS VASC = 4, merits halfway AC for stroke prevention unless strong contraindication exists (pt denies h/o PUD, GIB, chronic dizzy or falls) -cont UFH gtt for now. defer initiation of NOAC until decisions regarding need for SBE workup are finalized
[2016-12-06] MEDS: ASPIRIN 81 MG CHEWABLE TABLETS PO SCH (09:53)
[2016-12-06] MEDS: cefTRIAXone 2 GM/100 ML BAG (PRE-DOCKED) IVPB SCH (09:54)
[2016-12-06] MEDS: HEPARIN - 25,000 UNIT in SODIUM CHLORIDE 495 ML IV SCH ×3 (09:54→18:29)
[2016-12-06] MEDS: PANTOPRAZOLE 20 MG TABLET (FP) PO SCH (09:54)
[2016-12-06] MEDS: CLOPIDOGREL BISULFATE 75 MG TABLET (FP) PO SCH (09:54)
[2016-12-06] MEDS: METOPROLOL SUCCINATE 25 MG TAB.SR.24H (FP) PO SCH ×2 (09:54→21:04)
--- NOTE | 2016-12-06 13:27 | PN ---
Progress Note, Physician - Current Medication List Current Medications: Active Medications Acetaminophen (Tylenol -) 325 mg PO Q6H PRN PRN Reason: FEVER OR PAIN Last Admin: 12/06/16 06:28 Dose: 325 mg Aspirin (Asa -) 81 mg PO DAILY [facility] Last Admin: 12/06/16 09:53 Dose: 81 mg Atorvastatin Calcium (Lipitor -) 40 mg PO [facility] Benzocaine/Menthol (Cepacol Lozenge -) 1 each MM Q4H PRN PRN Reason: SORE THROAT Last Admin: 12/04/16 16:17 Dose: 1 each Ceftriaxone Sodium (Rocephin 2gm Ivpb (Pre-Docked)) 2 gm IVPB DAILY [facility] PRN Reason: Protocol Last Admin: 12/06/16 09:54 Dose: 2 gm Clopidogrel Bisulfate (Plavix -) 75 mg PO DAILY [facility] Last Admin: 12/06/16 09:54 Dose: 75 mg Heparin Sodium (Porcine) (Heparin -) 1,000 unit IVPUSH PRN PRN PRN Reason: Heparin Heparin Sodium (Porcine) (Heparin -) 5,000 unit IVPUSH PRN PRN PRN Reason: Heparin Last Admin: 12/05/16 21:50 Dose: 5,000 unit Heparin Sodium (Porcine) 25, (000 unit/ Sodium Chloride) 500 mls @ 20 mls/hr IV TITR [facility]; 1,000 UNIT/HR PRN Reason: Protocol Last Admin: 12/06/16 10:30 Dose: Not Given Sodium Chloride (Normal Saline -) 1,000 mls @ 65 mls/hr IV ASDIR [facility] Last Admin: 12/05/16 21:47 Dose: 65 mls/hr Metoprolol Succinate (Toprol Xl -) 25 mg PO BID [facility] Last Admin: 12/06/16 09:54 Dose: 25 mg Metoprolol Tartrate (Lopressor Injection -) 5 mg IVPUSH Q4H PRN PRN Reason: TACHYCARDIA Morphine Sulfate (Morphine Injection -) 2 mg IVPUSH Q6H PRN PRN Reason: PAIN Stop: 12/11/16 23:59 Last Admin: 12/05/16 15:00 Dose: 2 mg Pantoprazole Sodium (Protonix -) 20 mg PO DAILY [facility] Last Admin: 12/06/16 09:54 Dose: 20 mg Polyethylene Glycol (Miralax (For Daily Use) -) 17 gm PO DAILY [facility] - Objective Vital Signs: Vital Signs Temperature 98.3 F 12/06/16 10:00 Pulse Rate 108 H 12/06/16 10:00 Respiratory Rate 22 12/06/16 10:00 Blood Pressure 134/80 12/06/16 10:00 O2 Sat by Pulse Oximetry (%) 99 12/05/16 21:00 Labs: CBC, BMP 12/06/16 05:35 12/06/16 05:35 INR, PTT INR 1.27 (0.82-1.09) H 12/03/16 10:10 Problem List - Problems (1) Hyponatremia Code(s): E87.1 - HYPO-OSMOLALITY AND HYPONATREMIA Assessment/Plan pt w back still vss no bm yet but kub ok oob cont all tx as is did not see ekg today done
--- NOTE | 2016-12-06 15:22 | PN ---
Progress Note (short form) - Note Progress Note: poor historian wants to sleep notes pain in left elbow and left shoulder Vital Signs Period Temp Pulse Resp BP Sys/Osman Pulse Ox Last 24 Hr 97.7 F-98.4 F 90-120 20-22 102-134/76-80 99 cor-rrr lungs clear abd soft, nt ext +swelling right knee (right TKR) refusing to use left arm, pain in shoulder when arm is passively raised CBC, BMP 12/06/16 05:35 12/06/16 05:35 Microbiology 12/05/16 09:30 Blood - Peripheral Venous Blood Culture - Preliminary NO GROWTH OBTAINED AFTER 24 HOURS, INCUBATION TO CONTINUE FOR 4 DAYS. 12/05/16 09:35 Blood - Peripheral Venous Blood Culture - Preliminary NO GROWTH OBTAINED AFTER 24 HOURS, INCUBATION TO CONTINUE FOR 4 DAYS. 12/03/16 13:00 Blood - Peripheral Venous Blood Culture - Final Strep Agalactiae Group B 12/03/16 13:00 Blood - Peripheral Venous Blood Culture - Final Strep Agalactiae Group B 12/04/16 11:00 Urine - Urine Tobar Urine Culture - Final NO GROWTH OBTAINED a/p group b strep bacteremia- r/o endocarditis continue ceftriaxone would suggest ortho evaluation of right knee/left shoulder- r/o septic joint S/p mi
[2016-12-06] MEDS: morphine CARPU-JECT 2 MG/1 ML DISP.SYRIN IVPUSH PRN ×2 (15:45→21:08)
--- NOTE | 2016-12-06 17:48 | PN ---
Progress Note, Physician History of Present Illness: Pt seen and examine at bedside. He is awake and appears comfortable. He has joint aches. - Current Medication List Current Medications: Active Medications Acetaminophen (Tylenol -) 325 mg PO Q6H PRN PRN Reason: FEVER OR PAIN Last Admin: 12/06/16 06:28 Dose: 325 mg Aspirin (Asa -) 81 mg PO DAILY [facility] Last Admin: 12/06/16 09:53 Dose: 81 mg Atorvastatin Calcium (Lipitor -) 40 mg PO [facility] Benzocaine/Menthol (Cepacol Lozenge -) 1 each MM Q4H PRN PRN Reason: SORE THROAT Last Admin: 12/04/16 16:17 Dose: 1 each Ceftriaxone Sodium (Rocephin 2gm Ivpb (Pre-Docked)) 2 gm IVPB DAILY [facility] PRN Reason: Protocol Last Admin: 12/06/16 09:54 Dose: 2 gm Clopidogrel Bisulfate (Plavix -) 75 mg PO DAILY [facility] Last Admin: 12/06/16 09:54 Dose: 75 mg Heparin Sodium (Porcine) (Heparin -) 1,000 unit IVPUSH PRN PRN PRN Reason: Heparin Heparin Sodium (Porcine) (Heparin -) 5,000 unit IVPUSH PRN PRN PRN Reason: Heparin Last Admin: 12/05/16 21:50 Dose: 5,000 unit Heparin Sodium (Porcine) 25, (000 unit/ Sodium Chloride) 500 mls @ 20 mls/hr IV TITR [facility]; 1,000 UNIT/HR PRN Reason: Protocol Last Admin: 12/06/16 10:30 Dose: Not Given Sodium Chloride (Normal Saline -) 1,000 mls @ 65 mls/hr IV ASDIR [facility] Last Admin: 12/05/16 21:47 Dose: 65 mls/hr Metoprolol Succinate (Toprol Xl -) 25 mg PO BID [facility] Last Admin: 12/06/16 09:54 Dose: 25 mg Metoprolol Tartrate (Lopressor Injection -) 5 mg IVPUSH Q4H PRN PRN Reason: TACHYCARDIA Morphine Sulfate (Morphine Injection -) 2 mg IVPUSH Q6H PRN PRN Reason: PAIN Stop: 12/11/16 23:59 Last Admin: 12/06/16 15:45 Dose: 2 mg Pantoprazole Sodium (Protonix -) 20 mg PO DAILY [facility] Last Admin: 12/06/16 09:54 Dose: 20 mg Polyethylene Glycol (Miralax (For Daily Use) -) 17 gm PO DAILY [facility] - Objective Vital Signs: Vital Signs Temperature 98.0 F 12/06/16 15:00 Pulse Rate 108 H 12/06/16 14:00 Respiratory Rate 20 12/06/16 14:00 Blood Pressure 138/75 12/06/16 14:00 O2 Sat by Pulse Oximetry (%) 98 12/06/16 09:00 Constitutional: Yes: Calm Eyes: Yes: Conjunctiva Clear HENT: Yes: Atraumatic Cardiovascular: Yes: S1, S2 Respiratory: Yes: Rhonchi Genitourinary: Yes: WNL Extremities: Yes: WNL Edema: No Neurological: Yes: Oriented Psychiatric: Yes: Oriented Labs: CBC, BMP 12/06/16 05:35 12/06/16 05:35 INR, PTT INR 1.27 (0.82-1.09) H 12/03/16 10:10 Problem List - Problems (1) Elevated troponin level Code(s): R74.8 - ABNORMAL LEVELS OF OTHER SERUM ENZYMES (2) Hypokalemia Code(s): E87.6 - HYPOKALEMIA (3) Hyponatremia Code(s): E87.1 - HYPO-OSMOLALITY AND HYPONATREMIA (5) Bacteremia Code(s): R78.81 - BACTEREMIA Assessment/Plan Current Medications Generic Name Dose Route Start Last Admin Trade Name Freq PRN Reason Stop Dose Admin Acetaminophen 325 mg 12/03/16 10:46 12/06/16 06:28 Tylenol - PO 325 mg Q6H PRN Administration FEVER OR PAIN Aspirin 81 mg 12/03/16 10:00 12/06/16 09:53 Asa - PO 81 mg DAILY [facility] Administration Atorvastatin Calcium 40 mg 12/06/16 22:00 Lipitor - PO HS [facility] Benzocaine/Menthol 1 each 12/04/16 15:29 12/04/16 16:17 Cepacol Lozenge - MM 1 each Q4H PRN Administration SORE THROAT Ceftriaxone Sodium 2 gm 12/04/16 15:45 12/06/16 09:54 Rocephin 2gm Ivpb (Pre-Docked) IVPB 2 gm DAILY [facility] Administration Protocol Clopidogrel Bisulfate 75 mg 12/04/16 10:00 12/06/16 09:54 Plavix - PO 75 mg DAILY [facility] Administration Heparin Sodium (Porcine) 1,000 unit 12/03/16 09:45 Heparin - IVPUSH PRN PRN Heparin Heparin Sodium (Porcine) 5,000 unit 12/03/16 09:45 12/05/16 21:50 Heparin - IVPUSH 5,000 unit PRN PRN Administration Heparin Heparin Sodium (Porcine) 25, 500 mls @ 20 mls/hr 12/03/16 10:30 12/06/16 10:30 000 unit/ Sodium Chloride IV Not Given TITR [facility] Protocol 1,000 UNIT/HR Sodium Chloride 1,000 mls @ 65 mls/hr 12/05/16 17:03 12/05/16 21:47 Normal Saline - IV 65 mls/hr ASDIR [facility] Administration Metoprolol Succinate 25 mg 12/05/16 10:00 12/06/16 09:54 Toprol Xl - PO 25 mg BID [facility] Administration Metoprolol Tartrate 5 mg 12/05/16 09:47 Lopressor Injection - IVPUSH Q4H PRN TACHYCARDIA Morphine Sulfate 2 mg 12/05/16 13:32 12/06/16 15:45 Morphine Injection - IVPUSH 12/11/16 23:59 2 mg Q6H PRN Administration PAIN Pantoprazole Sodium 20 mg 12/03/16 10:00 12/06/16 09:54 Protonix - PO 20 mg DAILY [facility] Administration Polyethylene Glycol 17 gm 12/07/16 10:00 Miralax (For Daily Use) - PO DAILY [facility] Impression 1. hyponatremia 2. hypokalemia 3. nstemi 4. bacteremia 5. hypotension 6. diarrhea resolved Plan - renal funciton is stable - sodium is normal - decrease fluids further - check prt to master yacht ratio - repeat ua - repeat cultures negative to date - cont abx Dr Heredia
[2016-12-06] MEDS: ATORVASTATIN CA 40 MG TABLET (FP) PO SCH (21:04)
[2016-12-07] MEDS: ACETAMINOPHEN 325 MG TABLET (FP) PO PRN ×2 (01:28→10:11)
[2016-12-07] MEDS: morphine CARPU-JECT 2 MG/1 ML DISP.SYRIN IVPUSH PRN ×2 (05:39→21:02)
[2016-12-07 08:02] LABS: BASOPHIL 0.2 % (0-2.0); EOSINOPHIL 0.3 % (0-4.5); MCH 33.2 pg (25.7-33.7); MCHC 34.4 g/dl (32.0-35.9); MEAN CELL VOLUME 96.5 fl (80-96); MEAN PLT VOLUME 9.3 fl (7.5-11.1); NEUTROPHILS 79.5 % (42.8-82.8); PLATELET COUNT 177 K/MM3 (134-434); RDW 13.4 % (11.9-15.9); WHITE BLOOD COUNT 11.5 K/mm3 (4.0-10.0)
--- NOTE | 2016-12-07 08:25 | PN ---
Progress Note, Physician - Current Medication List Current Medications: Active Medications Acetaminophen (Tylenol -) 325 mg PO Q6H PRN PRN Reason: FEVER OR PAIN Last Admin: 12/07/16 01:28 Dose: 325 mg Aspirin (Asa -) 81 mg PO DAILY [facility] Last Admin: 12/06/16 09:53 Dose: 81 mg Atorvastatin Calcium (Lipitor -) 40 mg PO HS [facility] Last Admin: 12/06/16 21:04 Dose: 40 mg Benzocaine/Menthol (Cepacol Lozenge -) 1 each MM Q4H PRN PRN Reason: SORE THROAT Last Admin: 12/04/16 16:17 Dose: 1 each Ceftriaxone Sodium (Rocephin 2gm Ivpb (Pre-Docked)) 2 gm IVPB DAILY [facility] PRN Reason: Protocol Last Admin: 12/06/16 09:54 Dose: 2 gm Clopidogrel Bisulfate (Plavix -) 75 mg PO DAILY [facility] Last Admin: 12/06/16 09:54 Dose: 75 mg Heparin Sodium (Porcine) (Heparin -) 1,000 unit IVPUSH PRN PRN PRN Reason: Heparin Heparin Sodium (Porcine) (Heparin -) 5,000 unit IVPUSH PRN PRN PRN Reason: Heparin Last Admin: 12/05/16 21:50 Dose: 5,000 unit Heparin Sodium (Porcine) 25, (000 unit/ Sodium Chloride) 500 mls @ 20 mls/hr IV TITR [facility]; 1,000 UNIT/HR PRN Reason: Protocol Last Admin: 12/06/16 18:29 Dose: 35 mls/hr Metoprolol Succinate (Toprol Xl -) 25 mg PO BID [facility] Last Admin: 12/06/16 21:04 Dose: 25 mg Metoprolol Tartrate (Lopressor Injection -) 5 mg IVPUSH Q4H PRN PRN Reason: TACHYCARDIA Morphine Sulfate (Morphine Injection -) 2 mg IVPUSH Q6H PRN PRN Reason: PAIN Stop: 12/11/16 23:59 Last Admin: 12/07/16 05:39 Dose: 2 mg Pantoprazole Sodium (Protonix -) 20 mg PO DAILY [facility] Last Admin: 12/06/16 09:54 Dose: 20 mg Polyethylene Glycol (Miralax (For Daily Use) -) 17 gm PO DAILY [facility] - Objective Vital Signs: Vital Signs Temperature 98.5 F 12/07/16 07:08 Pulse Rate 107 H 12/07/16 07:08 Respiratory Rate 16 12/07/16 07:27 Blood Pressure 129/80 12/07/16 07:08 O2 Sat by Pulse Oximetry (%) 98 12/07/16 07:27 Labs: INR, PTT INR 1.27 (0.82-1.09) H 12/03/16 10:10 Problem List - Problems (1) Hyponatremia Code(s): E87.1 - HYPO-OSMOLALITY AND HYPONATREMIA Assessment/Plan consider briging over to eliqis or other anti orals card f/u than pt eval ? nh placement for back pain pt or home pt
[2016-12-07 08:42] LABS: ALBUMIN 1.7 g/dl (3.4-5.0); ALK PHOS 94 U/L (45-117); ANION GAP 9 (8-16); BILIRUBIN,TOTAL 1.1 mg/dL (0.2-1.0); CALCIUM 7.7 mg/dL (8.5-10.1); CO2 24 mmol/L (21-32); CREATININE 0.7 mg/dL (0.7-1.3); GLUCOSE,RANDOM 108 mg/dL (74-106); SGOT/AST 66 U/L (15-37); SGPT/ALT 64 U/L (12-78); TOT PROT 4.4 g/dl (6.4-8.2)
[2016-12-07] MEDS: PANTOPRAZOLE 20 MG TABLET (FP) PO SCH (09:06)
[2016-12-07] MEDS: ASPIRIN 81 MG CHEWABLE TABLETS PO SCH (09:06)
[2016-12-07] MEDS: CLOPIDOGREL BISULFATE 75 MG TABLET (FP) PO SCH (09:06)
[2016-12-07] MEDS: METOPROLOL SUCCINATE 25 MG TAB.SR.24H (FP) PO SCH ×2 (09:06→21:02)
[2016-12-07] MEDS: cefTRIAXone 2 GM/100 ML BAG (PRE-DOCKED) IVPB SCH (09:06)
[2016-12-07] MEDS: POLYETHYLENE GLYCOL 3350 119 GM BTL PO SCH (09:07)
[2016-12-07] MEDS: HEPARIN - 25,000 UNIT in SODIUM CHLORIDE 495 ML IV SCH ×2 (09:10→13:41)
--- NOTE | 2016-12-07 11:15 | PN ---
Progress Note (short form) - Note Progress Note: s: no cp sob palps dizzy; eating well ex cigs o: Vital Signs Temp 98.5 F 12/07/16 07:08 Pulse 107 H 12/07/16 07:08 Resp 16 12/07/16 07:27 BP 129/80 12/07/16 07:08 Pulse Ox 98 12/07/16 07:27 Intake & Output 12/06/16 12/06/16 12/07/16 11:59 23:59 11:59 Intake Total 758 336 1276 Output Total 250 1050 250 Balance -50 -600 1150 Weight 206 lb 3.2 oz 206 lb 6.4 oz Intake: IV 1200 Heparin - 25,000 Unit In 420 Normal Saline - 495 ml @ 1,000 UNIT/HR 20 mls/hr IV TITR FIDELIA Rx#: [id number] Normal Saline - 1,000 ml 780 @ 65 mls/hr IV ASDIR FIDELIA Rx#:[id number] Oral 200 450 200 Output: Urine 250 1050 250 Void 250 600 250 Tobar 450 Other: Voiding Method Urinal Urinal Diaper # Unmeasured Voids Void 3 2 Bowel Movement No Weight Measurement Method Built in Bedscale Patient Lift Scale Constitutional: Yes: Well Nourished, No Distress Eyes: No: Sclera Icterus HENT: No: Nasal Congestion Neck: No: Decreased ROM Respiratory: Yes: CTA Bilaterally. No: Accessory Muscle Use, Rales, Wheezes Gastrointestinal: Yes: Normal Bowel Sounds. No: Distention, Hepatomegaly, Palpable Mass, Tenderness Cardiovascular: Yes: tachy, irreg JVD: No Carotid Bruit: No PMI: Non-Displaced Heart Sounds: Yes: S1, S2. No: Gallop Murmur: No: Systolic Murmur, Diastolic Murmur Extremities: No: Cold, Cyanosis Edema: No Integumentary: No: Jaundice diaphoresis Neurological: Yes: Alert, awake, appropriate Psychiatric: No: Agitated Current Medications Generic Name Dose Route Start Last Admin Trade Name Freq PRN Reason Stop Dose Admin Acetaminophen 325 mg 12/03/16 10:46 12/07/16 10:11 Tylenol - PO 325 mg Q6H PRN Administration FEVER OR PAIN Aspirin 81 mg 12/03/16 10:00 12/07/16 09:06 Asa - PO 81 mg DAILY FIDELIA Administration Atorvastatin Calcium 40 mg 12/06/16 22:00 12/06/16 21:04 Lipitor - PO 40 mg HS FIDELIA Administration Benzocaine/Menthol 1 each 12/04/16 15:29 12/04/16 16:17 Cepacol Lozenge - MM 1 each Q4H PRN Administration SORE THROAT Ceftriaxone Sodium 2 gm 12/04/16 15:45 12/07/16 09:06 Rocephin 2gm Ivpb (Pre-Docked) IVPB 2 gm DAILY FIDELIA Administration Protocol Clopidogrel Bisulfate 75 mg 12/04/16 10:00 12/07/16 09:06 Plavix - PO 75 mg DAILY FIDELIA Administration Heparin Sodium (Porcine) 1,000 unit 12/03/16 09:45 Heparin - IVPUSH PRN PRN Heparin Heparin Sodium (Porcine) 5,000 unit 12/03/16 09:45 12/05/16 21:50 Heparin - IVPUSH 5,000 unit PRN PRN Administration Heparin Heparin Sodium (Porcine) 25, 500 mls @ 20 mls/hr 12/03/16 10:30 12/07/16 09:10 000 unit/ Sodium Chloride IV 37 mls/hr TITR FIDELIA Administration Protocol 1,000 UNIT/HR Metoprolol Succinate 25 mg 12/05/16 10:00 12/07/16 09:06 Toprol Xl - PO 25 mg BID FIDELIA Administration Metoprolol Tartrate 5 mg 12/05/16 09:47 Lopressor Injection - IVPUSH Q4H PRN TACHYCARDIA Morphine Sulfate 2 mg 12/05/16 13:32 12/07/16 05:39 Morphine Injection - IVPUSH 12/11/16 23:59 2 mg Q6H PRN Administration PAIN Pantoprazole Sodium 20 mg 12/03/16 10:00 12/07/16 09:06 Protonix - PO 20 mg DAILY FIDELIA Administration Polyethylene Glycol 17 gm 12/07/16 10:00 12/07/16 09:07 Miralax (For Daily Use) - PO 17 grams DAILY FIDELIA Administration Laboratory Last Values WBC 11.5 K/mm3 (4.0-10.0) H 12/07/16 05:35 RBC 3.63 M/mm3 (4.00-5.60) L 12/07/16 05:35 Hgb 12.0 GM/dL (11.7-16.9) 12/07/16 05:35 Hct 35.0 % (35.4-49) L 12/07/16 05:35 MCV 96.5 fl (80-96) H 12/07/16 05:35 MCH 33.2 pg (25.7-33.7) 12/07/16 05:35 MCHC 34.4 g/dl (32.0-35.9) 12/07/16 05:35 RDW 13.4 % (11.9-15.9) 12/07/16 05:35 Plt Count 177 K/MM3 (134-434) D 12/07/16 05:35 MPV 9.3 fl (7.5-11.1) 12/07/16 05:35 Neutrophils % 79.5 % (42.8-82.8) 12/07/16 05:35 Lymphocytes % 8.8 % (8-40) D 12/07/16 05:35 Monocytes % 11.2 % (3.8-10.2) H 12/07/16 05:35 Eosinophils % 0.3 % (0-4.5) 12/07/16 05:35 Basophils % 0.2 % (0-2.0) 12/07/16 05:35 ESR 67 mm/hr (0-20) H 12/04/16 05:15 INR 1.27 (0.82-1.09) H 12/03/16 10:10 PTT (Actin FS) 48.9 SECONDS (26.9-34.4) H 12/07/16 05:35 Sodium 139 mmol/L (136-145) 12/07/16 05:35 Potassium 3.7 mmol/L (3.5-5.1) 12/07/16 05:35 Chloride 106 mmol/L (98-107) 12/07/16 05:35 Carbon Dioxide 24 mmol/L (21-32) 12/07/16 05:35 Anion Gap 9 (8-16) 12/07/16 05:35 BUN 29 mg/dL (7-18) H 12/07/16 05:35 Creatinine 0.7 mg/dL (0.7-1.3) 12/07/16 05:35 Creat Clearance w eGFR > 60 (>60) 12/07/16 05:35 Random Glucose 108 mg/dL (74-106) H 12/07/16 05:35 Lactic Acid 1.4 mmol/L (0.4-2.0) 12/04/16 11:05 Uric Acid 4.0 mg/dL (2.6-7.2) 12/04/16 05:15 Calcium 7.7 mg/dL (8.5-10.1) L 12/07/16 05:35 Total Bilirubin 1.1 mg/dL (0.2-1.0) H 12/07/16 05:35 AST 66 U/L (15-37) H 12/07/16 05:35 ALT 64 U/L (12-78) D 12/07/16 05:35 Alkaline Phosphatase 94 U/L (45-117) 12/07/16 05:35 Creatine Kinase 603 IU/L (39-308) H 12/05/16 07:30 Creatine Kinase Index 1.1 % (0.0-5.0) 12/03/16 01:10 CK-MB (CK-2) 39.203 ng/ml (0.5-3.6) H 12/03/16 01:10 CK-MB (CK-2) Rel Index Cancelled 12/02/16 18:40 Troponin I 2.48 ng/ml (0.00-0.05) H* D 12/05/16 07:30 C-Reactive Protein 33.9 MG/DL (0.00-0.3) H 12/03/16 10:10 Total Protein 4.4 g/dl (6.4-8.2) L 12/07/16 05:35 Albumin 1.7 g/dl (3.4-5.0) L 12/07/16 05:35 Total Amylase 16 U/L (25-115) L 12/04/16 05:15 Aldolase 11.1 U/L (3.3-10.3) H 12/04/16 05:15 Prostate Specific Ag 3.20 ng/ml (0.0-4.0) 12/05/16 15:44 Urine Color Dkyellow 12/04/16 11:00 Urine Appearance Slcloudy 12/04/16 11:00 Urine pH 5.0 (5.0-8.0) 12/04/16 11:00 Ur Specific [place] 1.020 (1.005-1.025) 12/04/16 11:00 Urine Protein 1+ (NEGATIVE) H 12/04/16 11:00 Urine Glucose (UA) Negative (NEGATIVE) 12/04/16 11:00 Urine Ketones Negative (NEGATIVE) 12/04/16 11:00 Urine Blood 2+ (NEGATIVE) H 12/04/16 11:00 Urine Nitrite Negative (NEGATIVE) 12/04/16 11:00 Urine Bilirubin Negative (NEGATIVE) 12/04/16 11:00 Urine Urobilinogen Negative mg/dL (0.2-1.0) 12/04/16 11:00 Ur Leukocyte Esterase Trace (NEGATIVE) 12/04/16 11:00 Urine RBC 3 /hpf (0-3) 12/04/16 11:00 Urine WBC 12 /hpf (3-5) 12/04/16 11:00 Ur Epithelial Cells Rare /hpf (FEW) 12/04/16 11:00 Urine Bacteria Few /hpf (NONE SEEN) 12/03/16 01:10 Granular Casts 3 /lpf 12/04/16 11:00 Urine Mucus Rare 12/04/16 11:00 Cycl Citrul Peptide IgG 27 units (0-19) H 12/04/16 05:15 Rheumatoid Arth Biomark 18.0 IU/mL (0.0-13.9) H 12/04/16 05:15 CANDY Screen Negative (.) 12/04/16 05:15 Lyme Screen IgG & IgM <0.91 ISR (0.00-0.90) 12/03/16 10:10 tele: afib, rate controlled echo 08/2016: low nl lvef, nl rv, mild tr cxr: clear lungs ecg 12/02/16: sr, nl pr, old lbbb echo 11/2016: nl lvef, apicalseptal AK, nl rv size, mild mr, mild tr, nl rvsp Assessment/Plan hx cad s/p pci 2012, here with NSTEMI: -pt w/o cardiac symptoms but troponin 20 here on presentation to ER (12/02)--> trended down -ecg with old lbbb -echo here with nl lvef, apical WMA's -given the high trop values this seems more likely to be ACS/NSTEMI (possibly triggered by acute infection/inflammation), thus have been treating with asa/ plavix, hep gtt (also for new AF) -sunday on hold due to low bp -cont bb, statin -will need ischemic eval after infectious issues resolved sepsis, +bld cxs: -strep agalact (group B) in blood first set--repeat cx's ngtd -cont abx per ID -no signs of valve failure, no clinical SBE findings -plan per ID--consider RADHA if suspicion for SBE exists, and if will change mgmt HTN: -bp on low side likely due to sepsis -holding sunday -resumed bb due to afib with rvr margarita -slightly prerenal on initial labs, likely from diarrhea, sepsis -cr improved with ivfs, monitor afib: -new onset here with rvr -likely rvr driven by sepsis, cont abx, ivfs -HRs well controlled on metopr 25 bid--cont same -CHADS VASC = 4, merits senior living AC for stroke prevention unless strong contraindication exists (pt denies h/o PUD, GIB, chronic dizzy or falls) -cont UFH gtt for now. defer initiation of NOAC until decisions regarding need for SBE workup are finalized
[2016-12-07 13:28] LABS: URINE APPEARANCE CLEAR; URINE BILIRUBIN NEGATIVE (NEGATIVE); URINE BLOOD 1+ (NEGATIVE); URINE COLOR AMBER; URINE GLUCOSE (UA) NEGATIVE (NEGATIVE); URINE KETONE NEGATIVE (NEGATIVE); URINE LEUK ESTERASE NEGATIVE (NEGATIVE); URINE NITRITE NEGATIVE (NEGATIVE); URINE UROBILINOGEN 4.0 E.U/dl mg/dL (0.2-1.0)
[2016-12-07 13:29] LABS: URINE PROTEIN 1+ (NEGATIVE)
[2016-12-07 13:32] LABS: URINE RBC 2 /hpf (0-3); URINE WBC 7 /hpf (3-5)
--- NOTE | 2016-12-07 13:43 | PN ---
Progress Note (short form) - Note Progress Note: reading the paper notes pain in back, left shoulder and right knee swelling for months! Vital Signs Period Temp Pulse Resp BP Sys/Osman Pulse Ox Last 24 Hr 98 F-99.4 F 107-124 16-20 123-143/75-87 98-98 cor-rrr lungs clear abd soft,nt ext +swelling right knee CBC, BMP 12/07/16 05:35 12/07/16 05:35 Microbiology 12/05/16 09:30 Blood - Peripheral Venous Blood Culture - Preliminary NO GROWTH OBTAINED AFTER 48 HOURS, INCUBATION TO CONTINUE FOR 3 DAYS. 12/05/16 09:35 Blood - Peripheral Venous Blood Culture - Preliminary NO GROWTH OBTAINED AFTER 48 HOURS, INCUBATION TO CONTINUE FOR 3 DAYS. 12/03/16 13:00 Blood - Peripheral Venous Blood Culture - Final Strep Agalactiae Group B 12/03/16 13:00 Blood - Peripheral Venous Blood Culture - Final Strep Agalactiae Group B 12/04/16 11:00 Urine - Urine Tobar Urine Culture - Final NO GROWTH OBTAINED Current Medications Acetaminophen (Tylenol -) 325 mg PO Q6H PRN PRN Reason: FEVER OR PAIN Last Admin: 12/07/16 10:11 Dose: 325 mg Aspirin (Asa -) 81 mg PO DAILY FIDELIA Last Admin: 12/07/16 09:06 Dose: 81 mg Atorvastatin Calcium (Lipitor -) 40 mg PO HS [facility] Last Admin: 12/06/16 21:04 Dose: 40 mg Benzocaine/Menthol (Cepacol Lozenge -) 1 each MM Q4H PRN PRN Reason: SORE THROAT Last Admin: 12/04/16 16:17 Dose: 1 each Ceftriaxone Sodium (Rocephin 2gm Ivpb (Pre-Docked)) 2 gm IVPB DAILY FIDELIA PRN Reason: Protocol Last Admin: 12/07/16 09:06 Dose: 2 gm Clopidogrel Bisulfate (Plavix -) 75 mg PO DAILY [facility] Last Admin: 12/07/16 09:06 Dose: 75 mg Heparin Sodium (Porcine) (Heparin -) 1,000 unit IVPUSH PRN PRN PRN Reason: Heparin Heparin Sodium (Porcine) (Heparin -) 5,000 unit IVPUSH PRN PRN PRN Reason: Heparin Last Admin: 12/05/16 21:50 Dose: 5,000 unit Heparin Sodium (Porcine) 25, (000 unit/ Sodium Chloride) 500 mls @ 20 mls/hr IV TITR FIDELIA; 1,000 UNIT/HR PRN Reason: Protocol Last Admin: 12/07/16 13:41 Dose: Not Given Metoprolol Succinate (Toprol Xl -) 25 mg PO BID [facility] Last Admin: 12/07/16 09:06 Dose: 25 mg Metoprolol Tartrate (Lopressor Injection -) 5 mg IVPUSH Q4H PRN PRN Reason: TACHYCARDIA Morphine Sulfate (Morphine Injection -) 2 mg IVPUSH Q6H PRN PRN Reason: PAIN Stop: 12/11/16 23:59 Last Admin: 12/07/16 05:39 Dose: 2 mg Pantoprazole Sodium (Protonix -) 20 mg PO DAILY [facility] Last Admin: 12/07/16 09:06 Dose: 20 mg Polyethylene Glycol (Miralax (For Daily Use) -) 17 gm PO DAILY [facility] Last Admin: 12/07/16 09:07 Dose: 17 grams a/p group b strep bacteremia- r/o endocarditis continue ceftriaxone rheumatology evaluation +RF, +CCP S/p MT
--- NOTE | 2016-12-07 16:52 | PN ---
Progress Note, Physician History of Present Illness: Pt seen and examined at bedside. His awake and appears comfortable. He denies shortness of breath. - Current Medication List Current Medications: Active Medications Acetaminophen (Tylenol -) 325 mg PO Q6H PRN PRN Reason: FEVER OR PAIN Last Admin: 12/07/16 10:11 Dose: 325 mg Aspirin (Asa -) 81 mg PO DAILY [facility] Last Admin: 12/07/16 09:06 Dose: 81 mg Atorvastatin Calcium (Lipitor -) 40 mg PO HS [facility] Last Admin: 12/06/16 21:04 Dose: 40 mg Benzocaine/Menthol (Cepacol Lozenge -) 1 each MM Q4H PRN PRN Reason: SORE THROAT Last Admin: 12/04/16 16:17 Dose: 1 each Ceftriaxone Sodium (Rocephin 2gm Ivpb (Pre-Docked)) 2 gm IVPB DAILY FIDELIA PRN Reason: Protocol Last Admin: 12/07/16 09:06 Dose: 2 gm Clopidogrel Bisulfate (Plavix -) 75 mg PO DAILY [facility] Last Admin: 12/07/16 09:06 Dose: 75 mg Heparin Sodium (Porcine) (Heparin -) 1,000 unit IVPUSH PRN PRN PRN Reason: Heparin Heparin Sodium (Porcine) (Heparin -) 5,000 unit IVPUSH PRN PRN PRN Reason: Heparin Last Admin: 12/05/16 21:50 Dose: 5,000 unit Heparin Sodium (Porcine) 25, (000 unit/ Sodium Chloride) 500 mls @ 20 mls/hr IV TITR FIDELIA; 1,000 UNIT/HR PRN Reason: Protocol Last Admin: 12/07/16 13:41 Dose: Not Given Metoprolol Succinate (Toprol Xl -) 25 mg PO BID [facility] Last Admin: 12/07/16 09:06 Dose: 25 mg Metoprolol Tartrate (Lopressor Injection -) 5 mg IVPUSH Q4H PRN PRN Reason: TACHYCARDIA Morphine Sulfate (Morphine Injection -) 2 mg IVPUSH Q6H PRN PRN Reason: PAIN Stop: 12/11/16 23:59 Last Admin: 12/07/16 05:39 Dose: 2 mg Pantoprazole Sodium (Protonix -) 20 mg PO DAILY [facility] Last Admin: 12/07/16 09:06 Dose: 20 mg Polyethylene Glycol (Miralax (For Daily Use) -) 17 gm PO DAILY FIDELIA Last Admin: 12/07/16 09:07 Dose: 17 grams - Objective Vital Signs: Vital Signs Temperature 98.5 F 12/07/16 15:12 Pulse Rate 110 H 12/07/16 15:12 Respiratory Rate 18 12/07/16 15:12 Blood Pressure 117/65 12/07/16 15:12 O2 Sat by Pulse Oximetry (%) 98 12/07/16 07:27 Constitutional: Yes: Calm Eyes: Yes: Conjunctiva Clear HENT: Yes: Atraumatic Neck: Yes: Supple Cardiovascular: Yes: S1, S2 Respiratory: Yes: On Nasal O2 Gastrointestinal: Yes: Soft Genitourinary: Yes: WNL Musculoskeletal: Yes: Joint Stiffness Edema: No Neurological: Yes: Oriented Labs: CBC, BMP 12/07/16 05:35 12/07/16 05:35 INR, PTT INR 1.27 (0.82-1.09) H 12/03/16 10:10 Problem List - Problems (1) Elevated troponin level Code(s): R74.8 - ABNORMAL LEVELS OF OTHER SERUM ENZYMES (2) Hypokalemia Code(s): E87.6 - HYPOKALEMIA (3) Hyponatremia Code(s): E87.1 - HYPO-OSMOLALITY AND HYPONATREMIA (5) Bacteremia Code(s): R78.81 - BACTEREMIA Assessment/Plan Current Medications Generic Name Dose Route Start Last Admin Trade Name Freq PRN Reason Stop Dose Admin Acetaminophen 325 mg 12/03/16 10:46 12/07/16 10:11 Tylenol - PO 325 mg Q6H PRN Administration FEVER OR PAIN Aspirin 81 mg 12/03/16 10:00 12/07/16 09:06 Asa - PO 81 mg DAILY FIDELIA Administration Atorvastatin Calcium 40 mg 12/06/16 22:00 12/06/16 21:04 Lipitor - PO 40 mg HS FIDELIA Administration Benzocaine/Menthol 1 each 12/04/16 15:29 12/04/16 16:17 Cepacol Lozenge - MM 1 each Q4H PRN Administration SORE THROAT Ceftriaxone Sodium 2 gm 12/04/16 15:45 12/07/16 09:06 Rocephin 2gm Ivpb (Pre-Docked) IVPB 2 gm DAILY FIDELIA Administration Protocol Clopidogrel Bisulfate 75 mg 12/04/16 10:00 12/07/16 09:06 Plavix - PO 75 mg DAILY FIDELIA Administration Heparin Sodium (Porcine) 1,000 unit 12/03/16 09:45 Heparin - IVPUSH PRN PRN Heparin Heparin Sodium (Porcine) 5,000 unit 12/03/16 09:45 12/05/16 21:50 Heparin - IVPUSH 5,000 unit PRN PRN Administration Heparin Heparin Sodium (Porcine) 25, 500 mls @ 20 mls/hr 12/03/16 10:30 12/07/16 13:41 000 unit/ Sodium Chloride IV Not Given TITR [facility] Protocol 1,000 UNIT/HR Metoprolol Succinate 25 mg 12/05/16 10:00 12/07/16 09:06 Toprol Xl - PO 25 mg BID FIDELIA Administration Metoprolol Tartrate 5 mg 12/05/16 09:47 Lopressor Injection - IVPUSH Q4H PRN TACHYCARDIA Morphine Sulfate 2 mg 12/05/16 13:32 12/07/16 05:39 Morphine Injection - IVPUSH 12/11/16 23:59 2 mg Q6H PRN Administration PAIN Pantoprazole Sodium 20 mg 12/03/16 10:00 12/07/16 09:06 Protonix - PO 20 mg DAILY FIDELIA Administration Polyethylene Glycol 17 gm 12/07/16 10:00 12/07/16 09:07 Miralax (For Daily Use) - PO 17 grams DAILY FIDELIA Administration Impression 1. hyponatremia 2. hypokalemia 3. nstemi 4. bacteremia 5. hypotension 6. diarrhea resolved Plan - renal function is stable - keep off of fluids - check prt to rejogger ratio - repeat cultures negative to date - cont abx Dr Heredia
--- NOTE | 2016-12-07 17:57 | EKG ---
Test Reason : Blood Pressure : / mmHG Vent. Rate : 099 BPM Atrial Rate : 098 BPM P-R Int : 000 ms QRS Dur : 158 ms QT Int : 332 ms P-R-T Axes : 000 -29 153 degrees QTc Int : 426 ms ATRIAL FIBRILLATION LEFT BUNDLE BRANCH BLOCK ABNORMAL ECG WHEN COMPARED WITH ECG OF 05-DEC-2016 09:59, NO SIGNIFICANT CHANGE WAS FOUND Confirmed by MARJORIE AKBAR MD ([id number]) on 12/07/2016 5:57:29 PM Referred By: Goyo SHARP Confirmed By:MARJORIE AKBAR MD
[2016-12-07] MEDS: ATORVASTATIN CA 40 MG TABLET (FP) PO SCH (21:02)
[2016-12-08] MEDS ORDERED: morphine CARPU-JECT 4 MG/1 ML DISP.SYRIN IVPUSH PRN (04:12)
[2016-12-08] MEDS ORDERED: morphine CARPU-JECT 4 MG/1 ML DISP.SYRIN ONE (04:13)
[2016-12-08] MEDS: METOPROLOL TARTRATE 5 MG/5 ML VIAL IVPUSH PRN ×2 (04:16→21:08)
[2016-12-08 07:28] LABS: BASOPHIL 0.4 % (0-2.0); EOSINOPHIL 0.7 % (0-4.5); MCH 32.8 pg (25.7-33.7); MCHC 34.3 g/dl (32.0-35.9); MEAN CELL VOLUME 95.7 fl (80-96); MEAN PLT VOLUME 8.9 fl (7.5-11.1); NEUTROPHILS 81.4 % (42.8-82.8); PLATELET COUNT 237 K/MM3 (134-434); RDW 13.2 % (11.9-15.9); WHITE BLOOD COUNT 10.3 K/mm3 (4.0-10.0)
[2016-12-08 08:06] LABS: ALBUMIN 1.7 g/dl (3.4-5.0); ALK PHOS 110 U/L (45-117); ANION GAP 9 (8-16); BILIRUBIN,TOTAL 0.8 mg/dL (0.2-1.0); CALCIUM 7.8 mg/dL (8.5-10.1); CO2 24 mmol/L (21-32); CREATININE 0.8 mg/dL (0.7-1.3); GLUCOSE,RANDOM 105 mg/dL (74-106); SGOT/AST 61 U/L (15-37); SGPT/ALT 75 U/L (12-78); TOT PROT 4.6 g/dl (6.4-8.2)
--- NOTE | 2016-12-08 08:29 | PN ---
Progress Note, Physician Chief Complaint: DC, ? SBE History of Present Illness: pt continues to c/o pain--specifically, hip and back. also with R knee swelling and warmth continues to deny cp, sob, palpitations, syncope remote ex cigs - Current Medication List Current Medications: Active Medications Acetaminophen (Tylenol -) 325 mg PO Q6H PRN PRN Reason: FEVER OR PAIN Last Admin: 12/07/16 10:11 Dose: 325 mg Aspirin (Asa -) 81 mg PO DAILY [facility]IDELIA Last Admin: 12/07/16 09:06 Dose: 81 mg Atorvastatin Calcium (Lipitor -) 40 mg PO HS [facility]IDELIA Last Admin: 12/07/16 21:02 Dose: 40 mg Benzocaine/Menthol (Cepacol Lozenge -) 1 each MM Q4H PRN PRN Reason: SORE THROAT Last Admin: 12/04/16 16:17 Dose: 1 each Ceftriaxone Sodium (Rocephin 2gm Ivpb (Pre-Docked)) 2 gm IVPB DAILY FIDELIA PRN Reason: Protocol Last Admin: 12/07/16 09:06 Dose: 2 gm Clopidogrel Bisulfate (Plavix -) 75 mg PO DAILY [facility]IDELIA Last Admin: 12/07/16 09:06 Dose: 75 mg Heparin Sodium (Porcine) (Heparin -) 1,000 unit IVPUSH PRN PRN PRN Reason: Heparin Heparin Sodium (Porcine) (Heparin -) 5,000 unit IVPUSH PRN PRN PRN Reason: Heparin Last Admin: 12/05/16 21:50 Dose: 5,000 unit Heparin Sodium (Porcine) 25, (000 unit/ Sodium Chloride) 500 mls @ 20 mls/hr IV TITR FIDELIA; 1,000 UNIT/HR PRN Reason: Protocol Last Titration: 12/07/16 23:09 Dose: 1,850 unit/hr Metoprolol Succinate (Toprol Xl -) 25 mg PO BID [facility]IDELIA Last Admin: 12/07/16 21:02 Dose: 25 mg Metoprolol Tartrate (Lopressor Injection -) 5 mg IVPUSH Q4H PRN PRN Reason: TACHYCARDIA Last Admin: 12/08/16 04:16 Dose: 5 mg Morphine Sulfate (Morphine Injection -) 2 mg IVPUSH Q6H PRN PRN Reason: PAIN Stop: 12/08/16 23:59 Last Admin: 12/08/16 04:15 Dose: 2 mg Pantoprazole Sodium (Protonix -) 20 mg PO DAILY [facility] Last Admin: 12/07/16 09:06 Dose: 20 mg Polyethylene Glycol (Miralax (For Daily Use) -) 17 gm PO DAILY [facility] Last Admin: 12/07/16 09:07 Dose: 17 grams - Objective Vital Signs: Vital Signs Temperature 98.2 F 12/08/16 06:34 Pulse Rate 118 H 12/08/16 06:34 Respiratory Rate 16 12/08/16 06:34 Blood Pressure 148/89 12/08/16 06:34 O2 Sat by Pulse Oximetry (%) 98 12/07/16 20:27 Constitutional: Yes: No Distress, Calm Eyes: No: Sclera Icterus HENT: No: Nasal Congestion Cardiovascular: Yes: Regular Rate and Rhythm, S1, S2, Other (PMI non diplaced). No: Gallop, Murmur Respiratory: Yes: CTA Bilaterally (anteriorly (painful to sit forward)). No: Accessory Muscle Use, Rales, Wheezes Gastrointestinal: Yes: Normal Bowel Sounds, Soft. No: Tenderness Musculoskeletal: Yes: Other (No kyphosis) Extremities: Yes: Other (R knee swollen/warm). No: Cold Edema: No Integumentary: No: Jaundice Neurological: Yes: Alert, Oriented (x3) Psychiatric: No: Agitated Labs: CBC, BMP 12/08/16 06:00 12/08/16 06:00 INR, PTT INR 1.27 (0.82-1.09) H 12/03/16 10:10 - ....Imaging EKG: Other (tele: AF mostly 100s-110s bmp, rarely 120-130) Assessment/Plan echo 08/2016: low nl lvef, nl rv, mild tr cxr: clear lungs ecg 12/02/16: sr, nl pr, old lbbb echo 11/2016: nl lvef, apicalseptal [place], nl rv size, mild mr, mild tr, nl rvsp Assessment/Plan hx cad s/p pci 2012, here with NSTEMI: -pt w/o cardiac symptoms but troponin 20 here on presentation to ER (12/02)--> trended down -ecg with old lbbb -echo here with nl lvef, apical WMA's -given the high trop values this seems more likely to be ACS/NSTEMI (possibly triggered by acute infection/inflammation), thus have been treating with asa/ plavix, hep gtt (also for new AF) -micky on hold due to low bp -cont bb, statin -needs ischemic eval--persantine MPI ordered as pt appears clinically stable from ID point of view sepsis, +bld cxs: -typical organism for SBE (strep agalact (group B)) in blood first set--repeat cx's ngtd -on abx per ID -no signs of valve failure, no clinical SBE findings -d/w'd ID (dr raymond): rpt BCx's negative. reasonable to treat empirically for presumed SBE with 4 week course of abx--vs can do RADHA and if no signs of SBE can tx wth 2 weeks abx course. also contemplating w/u for septic joint (rheum consult pending, knee XRay ordered to start) -will risk stratify with nuclear stress test to ensure no very high risk myocardial ischemia prior to giving sedation for RADHA--will decide risks/ benefits of RADHA after stress test back afib: -new onset here with rvr -likely rvr driven by pain (no signs ongoing active infection/sepsis) -tolerating metopr 25 bid, no low bp's--will incr to 50 bid for tighter HR control -CHADS VASC = 4, merits intermediate AC for stroke prevention unless strong contraindication exists (pt denies h/o PUD, GIB, chronic dizzy or falls) -cont UFH gtt for now. defer initiation of NOAC until decisions regarding need for SBE workup are finalized HTN: -MICKY held for lowish BPs while septic -resumed bb due to afib with rvr -bp stable
--- NOTE | 2016-12-08 09:13 | PN ---
Progress Note, Physician Chief Complaint: ID Remains stable - Current Medication List Current Medications: Active Medications Acetaminophen (Tylenol -) 325 mg PO Q6H PRN PRN Reason: FEVER OR PAIN Last Admin: 12/07/16 10:11 Dose: 325 mg Aspirin (Asa -) 81 mg PO DAILY [facility] Last Admin: 12/07/16 09:06 Dose: 81 mg Atorvastatin Calcium (Lipitor -) 40 mg PO HS [facility] Last Admin: 12/07/16 21:02 Dose: 40 mg Benzocaine/Menthol (Cepacol Lozenge -) 1 each MM Q4H PRN PRN Reason: SORE THROAT Last Admin: 12/04/16 16:17 Dose: 1 each Ceftriaxone Sodium (Rocephin 2gm Ivpb (Pre-Docked)) 2 gm IVPB DAILY [facility] PRN Reason: Protocol Last Admin: 12/07/16 09:06 Dose: 2 gm Clopidogrel Bisulfate (Plavix -) 75 mg PO DAILY [facility] Last Admin: 12/07/16 09:06 Dose: 75 mg Heparin Sodium (Porcine) (Heparin -) 1,000 unit IVPUSH PRN PRN PRN Reason: Heparin Heparin Sodium (Porcine) (Heparin -) 5,000 unit IVPUSH PRN PRN PRN Reason: Heparin Last Admin: 12/05/16 21:50 Dose: 5,000 unit Heparin Sodium (Porcine) 25, (000 unit/ Sodium Chloride) 500 mls @ 20 mls/hr IV TITR FIDELIA; 1,000 UNIT/HR PRN Reason: Protocol Last Titration: 12/07/16 23:09 Dose: 1,850 unit/hr Metoprolol Succinate (Toprol Xl -) 25 mg PO BID [facility] Last Admin: 12/07/16 21:02 Dose: 25 mg Metoprolol Tartrate (Lopressor Injection -) 5 mg IVPUSH Q4H PRN PRN Reason: TACHYCARDIA Last Admin: 12/08/16 04:16 Dose: 5 mg Morphine Sulfate (Morphine Injection -) 2 mg IVPUSH Q6H PRN PRN Reason: PAIN Stop: 12/08/16 23:59 Last Admin: 12/08/16 04:15 Dose: 2 mg Pantoprazole Sodium (Protonix -) 20 mg PO DAILY [facility] Last Admin: 12/07/16 09:06 Dose: 20 mg Polyethylene Glycol (Miralax (For Daily Use) -) 17 gm PO DAILY [facility] Last Admin: 12/07/16 09:07 Dose: 17 grams - Objective Vital Signs: Vital Signs Temperature 98.2 F 12/08/16 06:34 Pulse Rate 118 H 12/08/16 06:34 Respiratory Rate 16 12/08/16 06:34 Blood Pressure 148/89 12/08/16 06:34 O2 Sat by Pulse Oximetry (%) 98 12/07/16 20:27 Constitutional: Yes: Well Nourished, No Distress HENT: Yes: WNL, Atraumatic Neck: Yes: WNL, Supple Cardiovascular: Yes: S1, S2. No: Murmur Respiratory: Yes: WNL, Regular, CTA Bilaterally. No: Tachypnea Gastrointestinal: Yes: WNL, Normal Bowel Sounds, Soft. No: Tenderness, Epigastrium Edema: No Labs: CBC, BMP 12/08/16 06:00 12/08/16 06:00 INR, PTT INR 1.27 (0.82-1.09) H 12/03/16 10:10 Problem List - Problems (1) Bacteremia due to Gram-positive bacteria Code(s): R78.81 - BACTEREMIA (2) Endocarditis Code(s): I38 - ENDOCARDITIS, VALVE UNSPECIFIED Assessment/Plan Microbiology 12/04/16 11:00 Urine - Urine Tobar Urine Culture - Final NO GROWTH OBTAINED 12/03/16 13:00 Blood - Peripheral Venous Blood Culture - Final Strep Agalactiae Group B 12/03/16 13:00 Blood - Peripheral Venous Blood Culture - Final Strep Agalactiae Group B 12/05/16 09:35 Blood - Peripheral Venous Blood Culture - Preliminary NO GROWTH OBTAINED AFTER 48 HOURS, INCUBATION TO CONTINUE FOR 3 DAYS. 12/05/16 09:30 Blood - Peripheral Venous Blood Culture - Preliminary NO GROWTH OBTAINED AFTER 48 HOURS, INCUBATION TO CONTINUE FOR 3 DAYS. Laboratory Tests 12/03/16 12/04/16 12/08/16 10:10 05:15 06:00 WBC Hgb Hct Plt Count ESR 67 H AST 61 H ALT 75 Alkaline Phosphatase 110 C-Reactive Protein 33.9 H 12/08/16 06:00 WBC 10.3 H Hgb 12.0 Hct 34.9 L Plt Count 237 D ESR AST ALT Alkaline Phosphatase C-Reactive Protein Assessment Group B strep bacteremia source unknown Risk factor ? Cardiovascular disease Now on Ceftriaxone While no obvious stigmata of endocarditis cannot be ruled out with an "endocarditis" organism. Elevated TNI may containdicate RADHA but as per Dr Bingham will do a nuclear stress first before doing RADHA. The other issue is that his right knee is warm swollen and he has a TKR in this knee. Still with diffuse pains everywhere he is stiff and may have a connective tissue disease ? RA Will do an xray of he knee . Discussed with cardiology Minal Cardenas and rheumatology Ronni RAZA
[2016-12-08] MEDS: PANTOPRAZOLE 20 MG TABLET (FP) PO SCH (09:31)
[2016-12-08] MEDS: CLOPIDOGREL BISULFATE 75 MG TABLET (FP) PO SCH (09:31)
[2016-12-08] MEDS: cefTRIAXone 2 GM/100 ML BAG (PRE-DOCKED) IVPB SCH (09:31)
[2016-12-08] MEDS: ASPIRIN 81 MG CHEWABLE TABLETS PO SCH (09:31)
[2016-12-08] MEDS: POLYETHYLENE GLYCOL 3350 119 GM BTL PO SCH (09:33)
[2016-12-08] MEDS: HEPARIN - 25,000 UNIT in SODIUM CHLORIDE 495 ML IV SCH (09:34)
--- NOTE | 2016-12-08 09:41 | PN ---
Progress Note, Physician - Current Medication List Current Medications: Active Medications Acetaminophen (Tylenol -) 325 mg PO Q6H PRN PRN Reason: FEVER OR PAIN Last Admin: 12/07/16 10:11 Dose: 325 mg Aspirin (Asa -) 81 mg PO DAILY [facility] Last Admin: 12/07/16 09:06 Dose: 81 mg Atorvastatin Calcium (Lipitor -) 40 mg PO HS [facility] Last Admin: 12/07/16 21:02 Dose: 40 mg Benzocaine/Menthol (Cepacol Lozenge -) 1 each MM Q4H PRN PRN Reason: SORE THROAT Last Admin: 12/04/16 16:17 Dose: 1 each Ceftriaxone Sodium (Rocephin 2gm Ivpb (Pre-Docked)) 2 gm IVPB DAILY [facility] PRN Reason: Protocol Last Admin: 12/07/16 09:06 Dose: 2 gm Clopidogrel Bisulfate (Plavix -) 75 mg PO DAILY [facility] Last Admin: 12/07/16 09:06 Dose: 75 mg Heparin Sodium (Porcine) (Heparin -) 1,000 unit IVPUSH PRN PRN PRN Reason: Heparin Heparin Sodium (Porcine) (Heparin -) 5,000 unit IVPUSH PRN PRN PRN Reason: Heparin Last Admin: 12/05/16 21:50 Dose: 5,000 unit Heparin Sodium (Porcine) 25, (000 unit/ Sodium Chloride) 500 mls @ 20 mls/hr IV TITR FIDELIA; 1,000 UNIT/HR PRN Reason: Protocol Last Titration: 12/07/16 23:09 Dose: 1,850 unit/hr Dipyridamole 50 mg/ Dextrose 50 mls @ 750 mls/hr IVPB ONCE ONE Stop: 12/08/16 10:03 Metoprolol Succinate (Toprol Xl -) 25 mg PO BID [facility] Last Admin: 12/07/16 21:02 Dose: 25 mg Metoprolol Tartrate (Lopressor Injection -) 5 mg IVPUSH Q4H PRN PRN Reason: TACHYCARDIA Last Admin: 12/08/16 04:16 Dose: 5 mg Morphine Sulfate (Morphine Injection -) 2 mg IVPUSH Q6H PRN PRN Reason: PAIN Stop: 12/08/16 23:59 Last Admin: 12/08/16 04:15 Dose: 2 mg Pantoprazole Sodium (Protonix -) 20 mg PO DAILY [facility] Last Admin: 12/07/16 09:06 Dose: 20 mg Polyethylene Glycol (Miralax (For Daily Use) -) 17 gm PO DAILY [facility] Last Admin: 12/07/16 09:07 Dose: 17 grams - Objective Vital Signs: Vital Signs Temperature 98 F 12/08/16 08:05 Pulse Rate 114 H 12/08/16 08:05 Respiratory Rate 16 12/08/16 08:05 Blood Pressure 132/76 12/08/16 08:05 O2 Sat by Pulse Oximetry (%) 98 12/07/16 20:27 Labs: CBC, BMP 12/08/16 06:00 12/08/16 06:00 INR, PTT INR 1.27 (0.82-1.09) H 12/03/16 10:10 Problem List - Problems (1) Hyponatremia Code(s): E87.1 - HYPO-OSMOLALITY AND HYPONATREMIA Assessment/Plan pt statusquo vss plan rheumotology to see pt stees test if lt artery main severe seth at [facility] if mild seth don here pt assymtomatic for now will need ? eliqis tx outpt if seeding will ? need 4 mths atx tx cont tx as is
--- NOTE | 2016-12-08 09:56 | EKG ---
Test Reason : Blood Pressure : / mmHG Vent. Rate : 133 BPM Atrial Rate : 113 BPM P-R Int : 000 ms QRS Dur : 146 ms QT Int : 306 ms P-R-T Axes : 000 -19 158 degrees QTc Int : 455 ms ATRIAL FIBRILLATION WITH RAPID VENTRICULAR RESPONSE LEFT BUNDLE BRANCH BLOCK ABNORMAL ECG WHEN COMPARED WITH ECG OF 05-DEC-2016 07:09, NO SIGNIFICANT CHANGE WAS FOUND Confirmed by ROSALIND VALDES MD ([id number]) on 12/08/2016 9:55:41 AM Referred By: Confirmed By:ROSALIND VALDES MD
--- NOTE | 2016-12-08 09:56 | EKG ---
Test Reason : Blood Pressure : / mmHG Vent. Rate : 133 BPM Atrial Rate : 107 BPM P-R Int : 000 ms QRS Dur : 140 ms QT Int : 348 ms P-R-T Axes : 000 -23 144 degrees QTc Int : 517 ms ATRIAL FIBRILLATION WITH RAPID VENTRICULAR RESPONSE LEFT BUNDLE BRANCH BLOCK ABNORMAL ECG WHEN COMPARED WITH ECG OF 04-DEC-2016 12:11, ATRIAL FIBRILLATION HAS REPLACED SINUS RHYTHM VENT. RATE HAS INCREASED BY 54 BPM T WAVE VARIATION Confirmed by KEISHA RAZA, ROSALIND ([id number]) on 12/08/2016 9:56:23 AM Referred By: Confirmed By:ROSALIND VALDES MD
[2016-12-08] MEDS ORDERED: DIPYRIDAMOLE STRESS TEST 50 MG in DEXTROSE 5%-WATER - 40 ML IVPB ONE (10:00)
--- NOTE | 2016-12-08 14:16 | PN ---
Progress Note, Physician History of Present Illness: Pt seen and examined at bedside. He is awake and alert. He is getting a stress test today. - Current Medication List Current Medications: Active Medications Acetaminophen (Tylenol -) 325 mg PO Q6H PRN PRN Reason: FEVER OR PAIN Last Admin: 12/07/16 10:11 Dose: 325 mg Aspirin (Asa -) 81 mg PO DAILY [facility] Last Admin: 12/08/16 09:31 Dose: 81 mg Atorvastatin Calcium (Lipitor -) 40 mg PO HS [facility] Last Admin: 12/07/16 21:02 Dose: 40 mg Benzocaine/Menthol (Cepacol Lozenge -) 1 each MM Q4H PRN PRN Reason: SORE THROAT Last Admin: 12/04/16 16:17 Dose: 1 each Ceftriaxone Sodium (Rocephin 2gm Ivpb (Pre-Docked)) 2 gm IVPB DAILY [facility] PRN Reason: Protocol Last Admin: 12/08/16 09:31 Dose: 2 gm Clopidogrel Bisulfate (Plavix -) 75 mg PO DAILY [facility] Last Admin: 12/08/16 09:31 Dose: 75 mg Heparin Sodium (Porcine) (Heparin -) 1,000 unit IVPUSH PRN PRN PRN Reason: Heparin Heparin Sodium (Porcine) (Heparin -) 5,000 unit IVPUSH PRN PRN PRN Reason: Heparin Last Admin: 12/05/16 21:50 Dose: 5,000 unit Heparin Sodium (Porcine) 25, (000 unit/ Sodium Chloride) 500 mls @ 20 mls/hr IV TITR [facility]IDELIA; 1,000 UNIT/HR PRN Reason: Protocol Last Admin: 12/08/16 09:34 Dose: 37 mls/hr Metoprolol Succinate (Toprol Xl -) 50 mg PO BID [facility] Metoprolol Tartrate (Lopressor Injection -) 5 mg IVPUSH Q4H PRN PRN Reason: TACHYCARDIA Last Admin: 12/08/16 04:16 Dose: 5 mg Morphine Sulfate (Morphine Injection -) 2 mg IVPUSH Q6H PRN PRN Reason: PAIN Stop: 12/08/16 23:59 Last Admin: 12/08/16 04:15 Dose: 2 mg Pantoprazole Sodium (Protonix -) 20 mg PO DAILY [facility] Last Admin: 12/08/16 09:31 Dose: 20 mg Polyethylene Glycol (Miralax (For Daily Use) -) 17 gm PO DAILY [facility] Last Admin: 12/08/16 09:33 Dose: 17 grams - Objective Vital Signs: Vital Signs Temperature 98 F 12/08/16 08:05 Pulse Rate 114 H 12/08/16 08:05 Respiratory Rate 16 12/08/16 08:05 Blood Pressure 132/76 12/08/16 08:05 O2 Sat by Pulse Oximetry (%) 98 12/07/16 20:27 Constitutional: Yes: Calm Eyes: Yes: Conjunctiva Clear HENT: Yes: Atraumatic Cardiovascular: Yes: S1, S2 Respiratory: Yes: CTA Bilaterally Gastrointestinal: Yes: Soft Genitourinary: Yes: WNL Edema: No Neurological: Yes: Oriented Psychiatric: Yes: Oriented Labs: CBC, BMP 12/08/16 06:00 12/08/16 06:00 INR, PTT INR 1.27 (0.82-1.09) H 12/03/16 10:10 Problem List - Problems (1) Elevated troponin level Code(s): R74.8 - ABNORMAL LEVELS OF OTHER SERUM ENZYMES (2) Hypokalemia Code(s): E87.6 - HYPOKALEMIA (3) Hyponatremia Code(s): E87.1 - HYPO-OSMOLALITY AND HYPONATREMIA (5) Bacteremia Code(s): R78.81 - BACTEREMIA Assessment/Plan Current Medications Generic Name Dose Route Start Last Admin Trade Name Freq PRN Reason Stop Dose Admin Acetaminophen 325 mg 12/03/16 10:46 12/07/16 10:11 Tylenol - PO 325 mg Q6H PRN Administration FEVER OR PAIN Aspirin 81 mg 12/03/16 10:00 12/08/16 09:31 Asa - PO 81 mg DAILY [facility]IA Administration Atorvastatin Calcium 40 mg 12/06/16 22:00 12/07/16 21:02 Lipitor - PO 40 mg HS [facility]ELIA Administration Benzocaine/Menthol 1 each 12/04/16 15:29 12/04/16 16:17 Cepacol Lozenge - MM 1 each Q4H PRN Administration SORE THROAT Ceftriaxone Sodium 2 gm 12/04/16 15:45 12/08/16 09:31 Rocephin 2gm Ivpb (Pre-Docked) IVPB 2 gm DAILY [facility]IA Administration Protocol Clopidogrel Bisulfate 75 mg 12/04/16 10:00 12/08/16 09:31 Plavix - PO 75 mg DAILY [facility] Administration Heparin Sodium (Porcine) 1,000 unit 12/03/16 09:45 Heparin - IVPUSH PRN PRN Heparin Heparin Sodium (Porcine) 5,000 unit 12/03/16 09:45 12/05/16 21:50 Heparin - IVPUSH 5,000 unit PRN PRN Administration Heparin Heparin Sodium (Porcine) 25, 500 mls @ 20 mls/hr 12/03/16 10:30 12/08/16 09:34 000 unit/ Sodium Chloride IV 37 mls/hr TITR [facility]IDELIA Administration Protocol 1,000 UNIT/HR Metoprolol Succinate 50 mg 12/08/16 10:24 Toprol Xl - PO BID [facility] Metoprolol Tartrate 5 mg 12/05/16 09:47 12/08/16 04:16 Lopressor Injection - IVPUSH 5 mg Q4H PRN Administration TACHYCARDIA Morphine Sulfate 2 mg 12/08/16 04:12 12/08/16 04:15 Morphine Injection - IVPUSH 12/08/16 23:59 2 mg Q6H PRN Administration PAIN Pantoprazole Sodium 20 mg 12/03/16 10:00 12/08/16 09:31 Protonix - PO 20 mg DAILY [facility] Administration Polyethylene Glycol 17 gm 12/07/16 10:00 12/08/16 09:33 Miralax (For Daily Use) - PO 17 grams DAILY [facility] Administration Impression 1. hyponatremia 2. hypokalemia 3. nstemi 4. bacteremia 5. hypotension 6. diarrhea resolved 7. microscopic hematuria Plan - follow up stress test results - repeat ua once more stable - can hold off fluids - cont abx - will follow PRN Dr Heredia
[2016-12-08] MEDS ORDERED: HEPARIN INFUSION - 500 ML IVPB ONE (14:31)
--- NOTE | 2016-12-08 14:51 | CONSULT ---
Consult Consult Specialty:: Rheumatology - History of Present Illness History of Present Illness: 86 year old male with significant medical hx of HTN, HLD, dementia, S/P right knee total joint replacement admitted with a 1 week history of polyarticular pain. HPI. The patient is a poor historian. He reports a 20 year history of mild joint pain involving mainly shoulders, elbows and knees that is worse at the endo of the day and accompanied by 10 minutes morning stiffness. At home he walks with a walker of a cane. He cannot remember the episode of pain prior to admission. One week prior to admission he had 6 teeth extracted - received antibiotics for 1 day. In the ER note is is reported that he had a 1 week history of significant pain in most peripheral joints. On admission he was diagnosed with a NSTEMI (Tropo I ; 20.4), WBC 15.2 (today 10.3), AST 61, ALT 75 , creatinine 0.8, urinalysis with protein 1+ and blood 1+. Cr/Pr ratio 0.9. On admission T. Max was 103.2 and blood culture X 2 revealed Strep Agalactiae group B. Rheumatoid factor was 18, CCP 27. CANDY and Lyme antibody were negative. At the present time he reports pain in shoulders and knees. - History Source History Provided By: Patient, Medical Record - Past Medical History [place]: Yes: Dementia (very mild) Cardio/Vascular: Yes: HTN, Hyperlipdemia Gastrointestinal: Yes: Diverticulitis, GERD Hepatobiliary: Yes: Cholelithiasis Infectious Disease: Yes: Other (tic dz) Musculoskeletal: Yes: Osteoarthritis - Past Surgical History Past Surgical History: Yes: Joint Replacement - Alcohol/Substance Use Hx Alcohol Use: No - Smoking History Smoking history: Never smoked Have you smoked in the past 12 months: No If you are a former smoker, when did you quit?: 35YRS AGO - Social History ADL: Independent History of Recent Travel: No Home Medications - Allergies Allergies/Adverse Reactions: Allergies Allergy/AdvReac Type Severity Reaction Status Date / Time No Known Drug Allergies Allergy Verified 04/08/13 10:45 - Home Medications Home Medications: Ambulatory Orders Aspirin Coated [Ecotrin -] 81 mg PO DAILY 01/14/12 Lisinopril [Prinivil] 10 mg PO DAILY 01/14/12 Omeprazole [Prilosec (RX)] 20 mg PO DAILY #1 capsule 09/20/12 Metoprolol Succinate [Toprol XL -] 25 mg PO DAILY #1 tab.sr.24h 04/13/13 Pravastatin Sodium [Pravachol (Nf)] 20 mg PO HS 09/08/15 Review of Systems - Review of Systems Constitutional: reports: Malaise, Weakness Eyes: reports: No Symptoms HENT: reports: No Symptoms Neck: reports: No Symptoms Cardiovascular: reports: No Symptoms Respiratory: reports: No Symptoms Gastrointestinal: reports: No Symptoms Musculoskeletal: reports: Other (See HPI) Physical Exam Vital Signs: Vital Signs Temperature 98 F 12/08/16 08:05 Pulse Rate 114 H 12/08/16 08:05 Respiratory Rate 16 12/08/16 08:05 Blood Pressure 132/76 12/08/16 08:05 O2 Sat by Pulse Oximetry (%) 98 12/07/16 20:27 Constitutional: Yes: Mild Distress Eyes: Yes: WNL HENT: Yes: WNL Neck: Yes: WNL Cardiovascular: Yes: WNL Respiratory: Yes: WNL Gastrointestinal: Yes: WNL Musculoskeletal: Yes: Other (Tenderness in the left shoulder. Both knees were tender and swollen, mainly the right,, that was also warm. He did nto have other active joints and he did not have stigmata in hands suggestive of rheumatoid arthritis.) Labs: CBC, BMP 12/08/16 06:00 12/08/16 06:00 Microbiology 12/03/16 13:00 Blood - Peripheral Venous Blood Culture - Final Strep Agalactiae Group B 12/03/16 13:00 Blood - Peripheral Venous Blood Culture - Final Strep Agalactiae Group B Laboratory Tests 12/03/16 12/03/16 12/04/16 10:10 10:10 05:15 ESR 67 H Calcium Total Bilirubin AST ALT Alkaline Phosphatase C-Reactive Protein 33.9 H Urine Color Urine Appearance Urine pH Ur Specific [place] Urine Protein Urine Glucose (UA) Urine Ketones Urine Blood Urine Nitrite Urine Bilirubin Urine Urobilinogen Ur Leukocyte Esterase Urine RBC Urine WBC Protein/Creatinin Ratio Cycl Citrul Peptide IgG Rheumatoid Arth Biomark CANDY Screen Lyme Screen IgG & IgM <0.91 12/04/16 12/07/16 12/07/16 05:15 13:00 13:00 ESR Calcium Total Bilirubin AST ALT Alkaline Phosphatase C-Reactive Protein Urine Color [place] Urine Appearance Clear Urine pH 5.0 Ur Specific [place] 1.020 Urine Protein 1+ H Urine Glucose (UA) Negative Urine Ketones Negative Urine Blood 1+ H Urine Nitrite Negative Urine Bilirubin Negative Urine Urobilinogen 4.0 e.u/dl Ur Leukocyte Esterase Negative Urine RBC 2 Urine WBC 7 Protein/Creatinin Ratio 0.9 Cycl Citrul Peptide IgG 27 H Rheumatoid Arth Biomark 18.0 H CANDY Screen Negative Lyme Screen IgG & IgM 12/08/16 06:00 ESR Calcium 7.8 L Total Bilirubin 0.8 D AST 61 H ALT 75 Alkaline Phosphatase 110 C-Reactive Protein Urine Color Urine Appearance Urine pH Ur Specific [place] Urine Protein Urine Glucose (UA) Urine Ketones Urine Blood Urine Nitrite Urine Bilirubin Urine Urobilinogen Ur Leukocyte Esterase Urine RBC Urine WBC Protein/Creatinin Ratio Cycl Citrul Peptide IgG Rheumatoid Arth Biomark CANDY Screen Lyme Screen IgG & IgM Problem List - Problems (1) Joint pain Assessment/Plan: The patient has a positive rheumatoid factor and CCP, however he does not have systemic inflammatory arthritis and there is no stigmata of joint pain suggestive of rheumatoid arthritis. In summary he does not have rheumatoid arthritis. The acute joint pain reported on admission could have been related to fever related to bacteremia. He has pain and swelling in both knees, In the right he had a total knee replacement and the joint is warm. I cannot rule out septic arthritis in the prosthetic joint secondary to bacteremia. I suggest orthopedic consultation to aspirate the right knee. Code(s): M25.50 - PAIN IN UNSPECIFIED JOINT Qualifiers: Joint pain location: knee Laterality: bilateral Qualified Code(s ): M25.561 - Pain in right knee
[2016-12-08] MEDS: METOPROLOL SUCCINATE 25 MG TAB.SR.24H (FP) PO SCH (15:21)
[2016-12-08] MEDS: ACETAMINOPHEN 325 MG TABLET (FP) PO PRN (21:01)
[2016-12-08] MEDS: METOPROLOL SUCCINATE 50 MG TAB.SR.24H (FP) PO SCH (21:50)
[2016-12-08] MEDS: ATORVASTATIN CA 40 MG TABLET (FP) PO SCH (21:50)
[2016-12-09 07:59] LABS: BASOPHIL 0.5 % (0-2.0); EOSINOPHIL 0.5 % (0-4.5); MCHC 34.6 g/dl (32.0-35.9); MEAN CELL VOLUME 95.4 fl (80-96); NEUTROPHILS 82.1 % (42.8-82.8); PLATELET COUNT 294 K/MM3 (134-434); RDW 13.3 % (11.9-15.9)
[2016-12-09] MEDS: METOPROLOL SUCCINATE 50 MG TAB.SR.24H (FP) PO SCH (09:05)
[2016-12-09] MEDS: PANTOPRAZOLE 20 MG TABLET (FP) PO SCH (09:05)
[2016-12-09] MEDS: CLOPIDOGREL BISULFATE 75 MG TABLET (FP) PO SCH (09:05)
[2016-12-09] MEDS: ASPIRIN 81 MG CHEWABLE TABLETS PO SCH (09:09)
[2016-12-09] MEDS: POLYETHYLENE GLYCOL 3350 119 GM BTL PO SCH (09:10)
[2016-12-09] MEDS: cefTRIAXone 2 GM/100 ML BAG (PRE-DOCKED) IVPB SCH (09:10)
[2016-12-09 09:11] LABS: ALBUMIN 1.7 g/dl (3.4-5.0); ALK PHOS 107 U/L (45-117); ANION GAP 9 (8-16); BILIRUBIN,TOTAL 1.4 mg/dL (0.2-1.0); CALCIUM 8.1 mg/dL (8.5-10.1); CO2 25 mmol/L (21-32); CREATININE 0.7 mg/dL (0.7-1.3); GLUCOSE,RANDOM 102 mg/dL (74-106); SGOT/AST 45 U/L (15-37); SGPT/ALT 68 U/L (12-78); TOT PROT 4.5 g/dl (6.4-8.2)
[2016-12-09] MEDS: HEPARIN - 25,000 UNIT in SODIUM CHLORIDE 495 ML IV SCH ×3 (09:13→21:37)
--- NOTE | 2016-12-09 11:11 | PN ---
Progress Note (short form) - Note Progress Note: Chief Complaint: SD, ? SBE History of Present Illness: + R knee swelling and warmth continues to deny cp, sob, palpitations, syncope remote ex cigs Current Medications Acetaminophen (Tylenol -) 325 mg PO Q6H PRN PRN Reason: FEVER OR PAIN Last Admin: 12/08/16 21:01 Dose: 325 mg Aspirin (Asa -) 81 mg PO DAILY [facility] Last Admin: 12/09/16 09:09 Dose: 81 mg Atorvastatin Calcium (Lipitor -) 40 mg PO HS [facility] Last Admin: 12/08/16 21:50 Dose: 40 mg Benzocaine/Menthol (Cepacol Lozenge -) 1 each MM Q4H PRN PRN Reason: SORE THROAT Last Admin: 12/04/16 16:17 Dose: 1 each Ceftriaxone Sodium (Rocephin 2gm Ivpb (Pre-Docked)) 2 gm IVPB DAILY [facility] PRN Reason: Protocol Last Admin: 12/09/16 09:10 Dose: 2 gm Clopidogrel Bisulfate (Plavix -) 75 mg PO DAILY [facility] Last Admin: 12/09/16 09:05 Dose: 75 mg Heparin Sodium (Porcine) (Heparin -) 1,000 unit IVPUSH PRN PRN PRN Reason: Heparin Last Admin: 12/09/16 09:13 Dose: 1,000 unit Heparin Sodium (Porcine) (Heparin -) 5,000 unit IVPUSH PRN PRN PRN Reason: Heparin Last Admin: 12/05/16 21:50 Dose: 5,000 unit Heparin Sodium (Porcine) 25, (000 unit/ Sodium Chloride) 500 mls @ 20 mls/hr IV TITR [facility]ELIA; 1,000 UNIT/HR PRN Reason: Protocol Last Titration: 12/09/16 09:13 Dose: 1,950 unit/hr Metoprolol Succinate (Toprol Xl -) 50 mg PO BID [facility] Last Admin: 12/09/16 09:05 Dose: 50 mg Metoprolol Tartrate (Lopressor Injection -) 5 mg IVPUSH Q4H PRN PRN Reason: TACHYCARDIA Last Admin: 12/08/16 21:08 Dose: 5 mg Pantoprazole Sodium (Protonix -) 20 mg PO DAILY [facility] Last Admin: 12/09/16 09:05 Dose: 20 mg Polyethylene Glycol (Miralax (For Daily Use) -) 17 gm PO DAILY [facility] Last Admin: 12/09/16 09:10 Dose: Not Given Vital Signs - 24 hr 12/08/16 12/08/16 12/08/16 14:05 17:00 21:00 Temperature 98.2 F 98.2 F Pulse Rate 112 H 116 H Respiratory 18 18 Rate Blood Pressure 141/80 133/89 O2 Sat by Pulse 96 Oximetry (%) 12/08/16 12/08/16 12/09/16 21:08 22:00 02:00 Temperature 99.8 F H 97.9 F Pulse Rate 132 H 110 H 109 H Respiratory 18 18 Rate Blood Pressure 158/84 144/79 130/70 O2 Sat by Pulse 99 Oximetry (%) 12/09/16 12/09/16 12/09/16 06:00 07:13 07:21 Temperature 98.8 F 98.0 F Pulse Rate 116 H 106 H Respiratory 19 18 18 Rate Blood Pressure 131/81 132/73 O2 Sat by Pulse 98 99 99 Oximetry (%) Intake & Output 12/07/16 12/08/16 12/09/16 12/10/16 07:59 07:59 07:59 07:59 Intake Total 1850 1350 1434 Output Total 1300 600 152 Balance 329 441 6856 Weight 206 lb 6.4 oz Constitutional: Yes: No Distress, Calm Eyes: No: Sclera Icterus HENT: No: Nasal Congestion Cardiovascular: Yes: irregular and Rhythm, S1, S2, Other (PMI non diplaced). No : Gallop, Murmur Respiratory: Yes: CTA Bilaterally (anteriorly (painful to sit forward)). No: Accessory Muscle Use, Rales, Wheezes Gastrointestinal: Yes: Normal Bowel Sounds, Soft. No: Tenderness Musculoskeletal: Yes: Other (No kyphosis) Extremities: Yes: Other (R knee swollen/warm). No: Cold Edema: No Integumentary: No: Jaundice Neurological: Yes: Alert, Oriented (x3) Psychiatric: No: Agitated Labs: CBC, BMP 12/09/16 05:43 12/09/16 05:43 - ....Imaging EKG: Other (tele: AF 100s-120s bmp) Assessment/Plan echo 08/2016: low nl lvef, nl rv, mild tr cxr: clear lungs ecg 7/25/17: sr, nl pr, old lbbb echo 11/2016: nl lvef, apicalseptal AK, nl rv size, mild mr, mild tr, nl rvsp dypiridamole stress 11/2016: resting ekg: afib with LBBB. moderate zone of inferolateral infarct with kaylah-infarct ischemia and associated wma. small area of apical /anteroapical ischemia. EF 37%. Assessment/Plan hx cad s/p pci 2012, here with NSTEMI: -pt w/o cardiac symptoms but troponin 20 here on presentation to ER (12/02)--> trended down -ecg with old lbbb -echo here with nl lvef, apical WMA's -given the high trop values this seems more likely to be ACS/NSTEMI (possibly triggered by acute infection/inflammation), thus have been treating with asa/ plavix, hep gtt (also for new AF) -micky was held due to low bp -cont bb, statin -needs ischemic eval--persantine MPI ordered as pt appears clinically stable from ID point of view - 12/09: stress test as above c/w CAD (pt with known CAD and prior pci). New WMA but no high risk lesion on stress and patient with recent + blood cultures therefore will defer further eval with cardiac catheterization and cont to manage medically. sepsis, +bld cxs: -typical organism for SBE (strep agalact (group B)) in blood first set--repeat cx's ngtd -on abx per ID -no signs of valve failure, no clinical SBE findings -d/w'd ID (dr raymond): rpt BCx's negative. reasonable to treat empirically for presumed SBE with 4 week course of abx--vs can do RADHA and if no signs of SBE can tx wth 2 weeks abx course. also contemplating w/u for septic joint (rheum consult pending, knee XRay ordered to start) -12/09: Stress test with no high risk proximal LAD lesion or LM lesion. But patient with recent nstemi, new wall motion abnormalities and multiple areas of infarct/ischemia. Discussed risks/benefits of RADHA with both patient, family, ID and Dr. Vega who evaluated him yesterday. Given recent Mi will defer inpatient RADHA for now. . afib: -new onset here with rvr -likely rvr driven by pain (no signs ongoing active infection/sepsis) -tolerating metopr 25 bid, no low bp's--will incr to 50 bid for tighter HR control -CHADS VASC = 4, merits snf AC for stroke prevention unless strong contraindication exists (pt denies h/o PUD, GIB, chronic dizzy or falls) -cont UFH gtt for now. defer initiation of NOAC until decisions regarding need for SBE workup are finalized - 12/09 still with suboptimal rate control. Will con't to uptitrate metoprolo. pt remains asx. Consider switching to NOAC once it is clear that no intervention needed for swollen knee. HTN: -MICKY held for lowish BPs while septic -resumed bb due to afib with rvr -12/09 uptitrating metoprolol for rate control.
--- NOTE | 2016-12-09 11:16 | PN ---
Progress Note, Physician Chief Complaint: rt knee excruciating pain back pain - Current Medication List Current Medications: Active Medications Acetaminophen (Tylenol -) 325 mg PO Q6H PRN PRN Reason: FEVER OR PAIN Last Admin: 12/08/16 21:01 Dose: 325 mg Aspirin (Asa -) 81 mg PO DAILY [facility] Last Admin: 12/09/16 09:09 Dose: 81 mg Atorvastatin Calcium (Lipitor -) 40 mg PO HS [facility] Last Admin: 12/08/16 21:50 Dose: 40 mg Benzocaine/Menthol (Cepacol Lozenge -) 1 each MM Q4H PRN PRN Reason: SORE THROAT Last Admin: 12/04/16 16:17 Dose: 1 each Ceftriaxone Sodium (Rocephin 2gm Ivpb (Pre-Docked)) 2 gm IVPB DAILY [facility] PRN Reason: Protocol Last Admin: 12/09/16 09:10 Dose: 2 gm Clopidogrel Bisulfate (Plavix -) 75 mg PO DAILY [facility] Last Admin: 12/09/16 09:05 Dose: 75 mg Heparin Sodium (Porcine) (Heparin -) 1,000 unit IVPUSH PRN PRN PRN Reason: Heparin Last Admin: 12/09/16 09:13 Dose: 1,000 unit Heparin Sodium (Porcine) (Heparin -) 5,000 unit IVPUSH PRN PRN PRN Reason: Heparin Last Admin: 12/05/16 21:50 Dose: 5,000 unit Heparin Sodium (Porcine) 25, (000 unit/ Sodium Chloride) 500 mls @ 20 mls/hr IV TITR [facility]ELIA; 1,000 UNIT/HR PRN Reason: Protocol Last Titration: 12/09/16 09:13 Dose: 1,950 unit/hr Metoprolol Succinate (Toprol Xl -) 50 mg PO BID [facility] Last Admin: 12/09/16 09:05 Dose: 50 mg Metoprolol Tartrate (Lopressor Injection -) 5 mg IVPUSH Q4H PRN PRN Reason: TACHYCARDIA Last Admin: 12/08/16 21:08 Dose: 5 mg Pantoprazole Sodium (Protonix -) 20 mg PO DAILY [facility] Last Admin: 12/09/16 09:05 Dose: 20 mg Polyethylene Glycol (Miralax (For Daily Use) -) 17 gm PO DAILY [facility] Last Admin: 12/09/16 09:10 Dose: Not Given - Objective Vital Signs: Vital Signs Temperature 98.0 F 12/09/16 07:13 Pulse Rate 106 H 12/09/16 07:13 Respiratory Rate 18 12/09/16 07:21 Blood Pressure 132/73 12/09/16 07:13 O2 Sat by Pulse Oximetry (%) 99 12/09/16 07:21 Labs: CBC, BMP 12/09/16 05:43 12/09/16 05:43 INR, PTT INR 1.27 (0.82-1.09) H 12/03/16 10:10 Problem List - Problems (1) Hyponatremia Code(s): E87.1 - HYPO-OSMOLALITY AND HYPONATREMIA Assessment/Plan ortho doubt will tap not enogh flid ct rt knee ? cortizone shot? get seth today need pt to become more mobil may need ct spine also still looking for vsoerse of bacteremia
--- NOTE | 2016-12-09 13:49 | PN ---
Progress Note, Physician History of Present Illness: Dr Molina's note appreciated Awake, alert C/O R hip pain Low grade temp noted WBC slightly elevated - Current Medication List Current Medications: Active Medications Acetaminophen (Tylenol -) 325 mg PO Q6H PRN PRN Reason: FEVER OR PAIN Last Admin: 12/08/16 21:01 Dose: 325 mg Aspirin (Asa -) 81 mg PO DAILY [facility] Last Admin: 12/09/16 09:09 Dose: 81 mg Atorvastatin Calcium (Lipitor -) 40 mg PO HS [facility] Last Admin: 12/08/16 21:50 Dose: 40 mg Benzocaine/Menthol (Cepacol Lozenge -) 1 each MM Q4H PRN PRN Reason: SORE THROAT Last Admin: 12/04/16 16:17 Dose: 1 each Ceftriaxone Sodium (Rocephin 2gm Ivpb (Pre-Docked)) 2 gm IVPB DAILY [facility] PRN Reason: Protocol Last Admin: 12/09/16 09:10 Dose: 2 gm Clopidogrel Bisulfate (Plavix -) 75 mg PO DAILY [facility] Last Admin: 12/09/16 09:05 Dose: 75 mg Heparin Sodium (Porcine) (Heparin -) 1,000 unit IVPUSH PRN PRN PRN Reason: Heparin Last Admin: 12/09/16 09:13 Dose: 1,000 unit Heparin Sodium (Porcine) (Heparin -) 5,000 unit IVPUSH PRN PRN PRN Reason: Heparin Last Admin: 12/05/16 21:50 Dose: 5,000 unit Heparin Sodium (Porcine) 25, (000 unit/ Sodium Chloride) 500 mls @ 20 mls/hr IV TITR [facility]IDELIA; 1,000 UNIT/HR PRN Reason: Protocol Last Titration: 12/09/16 09:13 Dose: 1,950 unit/hr Metoprolol Succinate (Toprol Xl -) 50 mg PO BID [facility] Last Admin: 12/09/16 09:05 Dose: 50 mg Metoprolol Tartrate (Lopressor Injection -) 5 mg IVPUSH Q4H PRN PRN Reason: TACHYCARDIA Last Admin: 12/08/16 21:08 Dose: 5 mg Pantoprazole Sodium (Protonix -) 20 mg PO DAILY [facility] Last Admin: 12/09/16 09:05 Dose: 20 mg Polyethylene Glycol (Miralax (For Daily Use) -) 17 gm PO DAILY [facility] Last Admin: 12/09/16 09:10 Dose: Not Given - Objective Vital Signs: Vital Signs Temperature 98.0 F 12/09/16 07:13 Pulse Rate 106 H 12/09/16 07:13 Respiratory Rate 18 12/09/16 07:21 Blood Pressure 132/73 12/09/16 07:13 O2 Sat by Pulse Oximetry (%) 99 12/09/16 07:21 Constitutional: Yes: No Distress Eyes: Yes: Conjunctiva Clear Cardiovascular: Yes: Regular Rate and Rhythm, S1, S2 Respiratory: Yes: CTA Bilaterally Gastrointestinal: Yes: Normal Bowel Sounds, Soft. No: Tenderness Edema: Yes Labs: CBC, BMP 12/09/16 05:43 12/09/16 05:43 INR, PTT INR 1.27 (0.82-1.09) H 12/03/16 10:10 Assessment/Plan Grp B strep bacteremia, cannot R/O endocarditis Possible infected R TKR ACS Continue ceftriaxone Ortho evaluation requested
--- NOTE | 2016-12-09 14:22 | CON.ORTH ---
Consult Reason for Consultation:: right knee pain - Past Medical History [employer]: Yes: Dementia (very mild) Cardio/Vascular: Yes: HTN, Hyperlipdemia Gastrointestinal: Yes: Diverticulitis, GERD Hepatobiliary: Yes: Cholelithiasis Infectious Disease: Yes: Other (tic dz) Musculoskeletal: Yes: Osteoarthritis - Past Surgical History Past Surgical History: Yes: Joint Replacement - Alcohol/Substance Use Hx Alcohol Use: No - Smoking History Smoking history: Never smoked Have you smoked in the past 12 months: No If you are a former smoker, when did you quit?: 35YRS AGO - Social History ADL: Independent History of Recent Travel: No Home Medications - Allergies Allergies/Adverse Reactions: Allergies Allergy/AdvReac Type Severity Reaction Status Date / Time No Known Drug Allergies Allergy Verified 04/08/13 10:45 - Home Medications Home Medications: Ambulatory Orders Aspirin Coated [Ecotrin -] 81 mg PO DAILY 01/14/12 Lisinopril [Prinivil] 10 mg PO DAILY 01/14/12 Omeprazole [Prilosec (RX)] 20 mg PO DAILY #1 capsule 09/20/12 Metoprolol Succinate [Toprol XL -] 25 mg PO DAILY #1 tab.sr.24h 04/13/13 Pravastatin Sodium [Pravachol (Nf)] 20 mg PO HS 09/08/15 Physical Exam for Ortho Vital Signs: Vital Signs Temperature 97.6 F 12/09/16 14:05 Pulse Rate 127 H 12/09/16 14:05 Respiratory Rate 18 12/09/16 14:05 Blood Pressure 117/89 12/09/16 14:05 O2 Sat by Pulse Oximetry (%) 99 12/09/16 07:21 Labs: CBC, BMP 12/09/16 05:43 12/09/16 05:43 INR, PTT INR 1.27 (0.82-1.09) H 12/03/16 10:10 - Lower Extremity Knee: Yes: Right, Pain, Swelling, Tenderness, Other (well healed incision, no erythema/ecchymosis, 2+ effusion, rom 5-80, calf soft, nt, nvi) Imaging - Results X-ray: Report Reviewed, Image Reviewed Assessment/Plan 86 year old male with significant medical hx of HTN, HLD, dementia, S/P right knee total joint replacement admitted with a 1 week history of right knee pain. Had right tkr 10 plus years ago. Had no complaints about the knee prior to last week. One week prior to admission he had 6 teeth extracted - received antibiotics for 1 day. On admission he was diagnosed with a NSTEMI (Tropo I ; 20.4), WBC 15.2 (today 10.3), AST 61, ALT 75, creatinine 0.8, urinalysis with protein 1+ and blood 1+. Cr/Pr ratio 0.9. On admission T. Max was 103.2 and blood culture X 2 revealed Strep Agalactiae group B. Rheumatoid factor was 18 , CCP 27. CANDY and Lyme antibody were negative. a/p right knee effusion s/p tkr 10 years ago After consent obtained, under sterile technique the right knee was aspirated 60 cc of cloudy fluid was aspirated and sent to lab f/u cell count and cultures continue abx as per ID will follow d/w Dr. Jarvis
[2016-12-09] MEDS ORDERED: METOPROLOL TARTRATE 25 MG TABLET (FP) PO ONE (16:39)
[2016-12-09 16:40] LABS: GLUCOSE,SYNOVIAL FLUID < 1 mg/dL; TOTAL PROTEIN,SYNOVIAL FLUID 3 gm/dL
[2016-12-09 19:19] LABS: SYNOVIAL FLUID MONOCYTES 5 %; SYNOVIAL FLUID NEUTROPHILS 95 %
[2016-12-09] MEDS: ATORVASTATIN CA 40 MG TABLET (FP) PO SCH (21:42)
[2016-12-09] MEDS: METOPROLOL SUCCINATE 25 MG TAB.SR.24H (FP) PO SCH (21:42)
[2016-12-10 07:43] LABS: BASOPHIL 0.5 % (0-2.0); EOSINOPHIL 0.7 % (0-4.5); MCH 33.5 pg (25.7-33.7); MCHC 34.5 g/dl (32.0-35.9); MEAN CELL VOLUME 97.1 fl (80-96); MEAN PLT VOLUME 9.1 fl (7.5-11.1); NEUTROPHILS 83.6 % (42.8-82.8); PLATELET COUNT 324 K/MM3 (134-434); RDW 13.1 % (11.9-15.9); WHITE BLOOD COUNT 10.5 K/mm3 (4.0-10.0)
[2016-12-10 08:15] LABS: ALBUMIN 1.7 g/dl (3.4-5.0); ALK PHOS 107 U/L (45-117); ANION GAP 9 (8-16); BILIRUBIN,TOTAL 0.9 mg/dL (0.2-1.0); CALCIUM 7.9 mg/dL (8.5-10.1); CO2 24 mmol/L (21-32); CREATININE 0.7 mg/dL (0.7-1.3); GLUCOSE,RANDOM 99 mg/dL (74-106); SGOT/AST 54 U/L (15-37); SGPT/ALT 74 U/L (12-78); TOT PROT 4.6 g/dl (6.4-8.2)
--- NOTE | 2016-12-10 09:13 | PN ---
Progress Note (short form) - Note Progress Note: Pt seen and examined. His right knee is still warm, mildly swollen, not erythematous, no cellulitis. He feels that the knee is feeling a little better since being on IV antibiotics. Labs: Lyme titer - WBC high but improving, 10.5 83.6% Neutrophils ESR Pending Bld Cx + Group B Strep Imp Right knee infection in setting of TKR prosthesis, improving on IV antibiotics. Rec There is still a role for an arthroscopic I & D. Pros and cons discussed with pt He had a significant DE in the past, therefore cardiology consult is being obtained Dr Lackey will advise, he may be at too high a risk for surgery at this time He is NPO for now
[2016-12-10] MEDS: POLYETHYLENE GLYCOL 3350 119 GM BTL PO SCH (09:53)
[2016-12-10] MEDS: ASPIRIN 81 MG CHEWABLE TABLETS PO SCH ×2 (09:53→18:34)
[2016-12-10] MEDS: CLOPIDOGREL BISULFATE 75 MG TABLET (FP) PO SCH ×2 (09:53→18:35)
[2016-12-10] MEDS: PANTOPRAZOLE 20 MG TABLET (FP) PO SCH (09:54)
[2016-12-10] MEDS: cefTRIAXone 2 GM/100 ML BAG (PRE-DOCKED) IVPB SCH (09:55)
[2016-12-10] MEDS: METOPROLOL SUCCINATE 25 MG TAB.SR.24H (FP) PO SCH ×2 (09:55→21:52)
[2016-12-10] MEDS: HEPARIN - 25,000 UNIT in SODIUM CHLORIDE 495 ML IV SCH (09:56)
--- NOTE | 2016-12-10 11:53 | PN ---
Progress Note (short form) - Note Progress Note: History of Present Illness: continues to deny cp, sob, palpitations, syncope remote ex cigs Current Medications Generic Name Dose Route Start Last Admin Trade Name Gtq PRN Reason Stop Dose Admin Acetaminophen 325 mg 12/03/16 10:46 12/08/16 21:01 Tylenol - PO 325 mg Q6H PRN Administration FEVER OR PAIN Aspirin 81 mg 12/03/16 10:00 12/10/16 09:53 Asa - PO Not Given DAILY [facility] Atorvastatin Calcium 40 mg 12/06/16 22:00 12/09/16 21:42 Lipitor - PO 40 mg HS [facility]IA Administration Benzocaine/Menthol 1 each 12/04/16 15:29 12/04/16 16:17 Cepacol Lozenge - MM 1 each Q4H PRN Administration SORE THROAT Ceftriaxone Sodium 2 gm 12/04/16 15:45 12/10/16 09:55 Rocephin 2gm Ivpb (Pre-Docked) IVPB 2 gm DAILY [facility]IA Administration Protocol Clopidogrel Bisulfate 75 mg 12/04/16 10:00 12/10/16 09:53 Plavix - PO Not Given DAILY [facility] Heparin Sodium (Porcine) 1,000 unit 12/03/16 09:45 12/09/16 09:13 Heparin - IVPUSH 1,000 unit PRN PRN Administration Heparin Heparin Sodium (Porcine) 5,000 unit 12/03/16 09:45 12/05/16 21:50 Heparin - IVPUSH 5,000 unit PRN PRN Administration Heparin Heparin Sodium (Porcine) 25, 500 mls @ 20 mls/hr 12/03/16 10:30 12/10/16 09:56 000 unit/ Sodium Chloride IV Not Given TITR [facility] Protocol 1,000 UNIT/HR Metoprolol Succinate 75 mg 12/09/16 22:00 12/10/16 09:55 Toprol Xl - PO 75 mg BID [facility]IDELIA Administration Metoprolol Tartrate 5 mg 12/05/16 09:47 12/08/16 21:08 Lopressor Injection - IVPUSH 5 mg Q4H PRN Administration TACHYCARDIA Pantoprazole Sodium 20 mg 12/03/16 10:00 12/10/16 09:54 Protonix - PO 20 mg DAILY [facility] Administration Polyethylene Glycol 17 gm 12/07/16 10:00 12/10/16 09:53 Miralax (For Daily Use) - PO Not Given DAILY [facility] Vital Signs Period Temp Pulse Resp BP Sys/Osman Pulse Ox Last 24 Hr 97.6 F-98.2 F 104-129 18-22 117-142/73-90 95-98 Constitutional: Yes: No Distress, Calm Eyes: No: Sclera Icterus HENT: No: Nasal Congestion Cardiovascular: Yes: irregular and Rhythm, S1, S2, Other (PMI non diplaced). No : Gallop, Murmur Respiratory: Yes: CTA Bilaterally (anteriorly (painful to sit forward)). No: Accessory Muscle Use, Rales, Wheezes Gastrointestinal: Yes: Normal Bowel Sounds, Soft. No: Tenderness Edema: No Integumentary: No Jaundice diaphoresis Neurological: Yes: Alert, Oriented (x3) Psychiatric: No: Agitated Labs: CBC, BMP 12/10/16 05:35 12/10/16 05:35 Other (tele: AF low 100s) echo 08/2016: low nl lvef, nl rv, mild tr cxr: clear lungs ecg 12/02/16: sr, nl pr, old lbbb echo 11/2016: nl lvef, apicalseptal AK, nl rv size, mild mr, mild tr, nl rvsp dypiridamole stress 11/2016: resting ekg: afib with LBBB. moderate zone of inferolateral infarct with kaylah-infarct ischemia and associated wma. small area of apical /anteroapical ischemia. EF 37%. 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 New WMA but no high risk lesion on stress and patient with recent + blood cultures therefore will defer further eval with cardiac catheterization and cont to manage medically. -sunday was held due to low bp -cont bb, statin - sepsis, +bld cxs: -typical organism for SBE (strep agalact (group B)) in blood first set--repeat cx's ngtd -on abx per ID -no signs of valve failure, no clinical SBE findings -d/w'd ID (dr raymond): rpt BCx's negative. reasonable to treat empirically for presumed SBE with 4 week course of abx--vs can do RADHA and if no signs of SBE can tx wth 2 weeks abx course. also contemplating w/u for septic joint (rheum consult pending, knee XRay ordered to start) -12/09: Stress test with no high risk proximal LAD lesion or LM lesion. But patient with recent nstemi, new wall motion abnormalities and multiple areas of infarct/ischemia. Discussed risks/benefits of RADHA with both patient, family, ID and Dr. Vega who evaluated him yesterday. Given recent Mi will defer inpatient RADHA for now. infected knee: -ortho considering arthroscopic I & D. -given his recent SC he is hi-risk and would avoid non-urgent procedures unless can be done with local anesthesia/nerve block only -pt is also declining any procedures on knee at this time, says just wants abx for now afib: -new onset here with rvr -likely rvr driven by pain (no signs ongoing active infection/sepsis) -cont bb, rate improved -CHADS VASC = 4, merits mcc AC for stroke prevention unless strong contraindication exists (pt denies h/o PUD, GIB, chronic dizzy or falls) -cont UFH gtt for now, change to NOAC when ready for dc HTN: -stable
--- NOTE | 2016-12-10 12:04 | PN ---
Progress Note (short form) - Note Progress Note: Pt seen and examined again. Cardiology says that the pt is at very high risk, and would recommend avoiding surgery unless it is absolutely necessary. The pt does not appear to be septic. The right knee continues to look good. We discussed the potential risks and complications, benefits, risks, alternatives and at this time, "unless it is a matter of life and ", the patient is refusing surgery. We will follow the pt's clinical course. D/W PMD
--- NOTE | 2016-12-10 17:28 | PN ---
Progress Note, Physician History of Present Illness: Awake,alert More comfortable today No fever No c/o knee pain Knee aspirate c/s pending - Current Medication List Current Medications: Active Medications Acetaminophen (Tylenol -) 325 mg PO Q6H PRN PRN Reason: FEVER OR PAIN Last Admin: 12/08/16 21:01 Dose: 325 mg Aspirin (Asa -) 81 mg PO DAILY [facility] Last Admin: 12/10/16 09:53 Dose: Not Given Atorvastatin Calcium (Lipitor -) 40 mg PO HS [facility] Last Admin: 12/09/16 21:42 Dose: 40 mg Benzocaine/Menthol (Cepacol Lozenge -) 1 each MM Q4H PRN PRN Reason: SORE THROAT Last Admin: 12/04/16 16:17 Dose: 1 each Ceftriaxone Sodium (Rocephin 2gm Ivpb (Pre-Docked)) 2 gm IVPB DAILY [facility] PRN Reason: Protocol Last Admin: 12/10/16 09:55 Dose: 2 gm Clopidogrel Bisulfate (Plavix -) 75 mg PO DAILY [facility] Last Admin: 12/10/16 09:53 Dose: Not Given Heparin Sodium (Porcine) (Heparin -) 1,000 unit IVPUSH PRN PRN PRN Reason: Heparin Last Admin: 12/09/16 09:13 Dose: 1,000 unit Heparin Sodium (Porcine) (Heparin -) 5,000 unit IVPUSH PRN PRN PRN Reason: Heparin Last Admin: 12/05/16 21:50 Dose: 5,000 unit Heparin Sodium (Porcine) 25, (000 unit/ Sodium Chloride) 500 mls @ 20 mls/hr IV TITR [facility]IDELIA; 1,000 UNIT/HR PRN Reason: Protocol Last Admin: 12/10/16 09:56 Dose: Not Given Metoprolol Succinate (Toprol Xl -) 75 mg PO BID [facility] Last Admin: 12/10/16 09:55 Dose: 75 mg Metoprolol Tartrate (Lopressor Injection -) 5 mg IVPUSH Q4H PRN PRN Reason: TACHYCARDIA Last Admin: 12/08/16 21:08 Dose: 5 mg Pantoprazole Sodium (Protonix -) 20 mg PO DAILY [facility] Last Admin: 12/10/16 09:54 Dose: 20 mg Polyethylene Glycol (Miralax (For Daily Use) -) 17 gm PO DAILY [facility] Last Admin: 12/10/16 09:53 Dose: Not Given - Objective Vital Signs: Vital Signs Temperature 97.6 F 12/10/16 14:18 Pulse Rate 101 H 12/10/16 14:18 Respiratory Rate 20 12/10/16 14:18 Blood Pressure 128/78 12/10/16 14:18 O2 Sat by Pulse Oximetry (%) 95 12/10/16 10:00 Constitutional: Yes: No Distress Eyes: Yes: Conjunctiva Clear Cardiovascular: Yes: Regular Rate and Rhythm, S1, S2 Respiratory: Yes: CTA Bilaterally Gastrointestinal: Yes: Normal Bowel Sounds, Soft Edema: Yes Labs: CBC, BMP 12/10/16 05:35 12/10/16 05:35 INR, PTT INR 1.27 (0.82-1.09) H 12/03/16 10:10 Assessment/Plan Grp B strep bacteremia,probable endocarditis Possible infected R TKR ACS Continue ceftriaxone Await R knee aspirate c/s
[2016-12-10] MEDS: ATORVASTATIN CA 40 MG TABLET (FP) PO SCH (21:52)
[2016-12-11 07:40] LABS: BASOPHIL 0.5 % (0-2.0); EOSINOPHIL 0.6 % (0-4.5); MCH 32.7 pg (25.7-33.7); MCHC 33.9 g/dl (32.0-35.9); MEAN CELL VOLUME 96.4 fl (80-96); MEAN PLT VOLUME 9.1 fl (7.5-11.1); NEUTROPHILS 85.6 % (42.8-82.8); PLATELET COUNT 391 K/MM3 (134-434); RDW 13.5 % (11.9-15.9)
[2016-12-11 08:12] LABS: ALBUMIN 1.8 g/dl (3.4-5.0); ANION GAP 8 (8-16); CALCIUM 8.1 mg/dL (8.5-10.1); CO2 24 mmol/L (21-32); GLUCOSE,RANDOM 99 mg/dL (74-106); MAGNESIUM 1.9 mg/dL (1.8-2.4)
[2016-12-11 08:16] LABS: ALK PHOS 111 U/L (45-117); BILIRUBIN,TOTAL 0.8 mg/dL (0.2-1.0); CREATININE 0.7 mg/dL (0.7-1.3); SGOT/AST 51 U/L (15-37); SGPT/ALT 79 U/L (12-78); TOT PROT 4.9 g/dl (6.4-8.2)
--- NOTE | 2016-12-11 08:44 | PN ---
Progress Note (short form) - Note Progress Note: Pt seen and examined. He states right knee continues to improve, less pain. PE Right knee looks better. Less swollen No erythema Less tender Less hot Overall his right knee continues to improve. Con't antibiotics. He should get OOB to chair every day, and to ambulate if possible No surgery planned at this time
[2016-12-11] MEDS: ASPIRIN 81 MG CHEWABLE TABLETS PO SCH (09:29)
[2016-12-11] MEDS: METOPROLOL SUCCINATE 25 MG TAB.SR.24H (FP) PO SCH ×2 (09:29→21:37)
[2016-12-11] MEDS: PANTOPRAZOLE 20 MG TABLET (FP) PO SCH (09:29)
[2016-12-11] MEDS: CLOPIDOGREL BISULFATE 75 MG TABLET (FP) PO SCH (09:29)
[2016-12-11] MEDS: cefTRIAXone 2 GM/100 ML BAG (PRE-DOCKED) IVPB SCH (09:30)
[2016-12-11] MEDS: POLYETHYLENE GLYCOL 3350 119 GM BTL PO SCH (09:30)
--- NOTE | 2016-12-11 10:15 | PN ---
Progress Note (short form) - Note Progress Note: History of Present Illness: continues to deny cp, sob, palpitations, syncope remote ex cigs Current Medications Generic Name Dose Route Start Last Admin Trade Name Juan PRN Reason Stop Dose Admin Acetaminophen 325 mg 12/03/16 10:46 12/08/16 21:01 Tylenol - PO 325 mg Q6H PRN Administration FEVER OR PAIN Aspirin 81 mg 12/03/16 10:00 12/11/16 09:29 Asa - PO 81 mg DAILY FIDELIA Administration Atorvastatin Calcium 40 mg 12/06/16 22:00 12/10/16 21:52 Lipitor - PO 40 mg HS FIDELIA Administration Benzocaine/Menthol 1 each 12/04/16 15:29 12/04/16 16:17 Cepacol Lozenge - MM 1 each Q4H PRN Administration SORE THROAT Ceftriaxone Sodium 2 gm 12/04/16 15:45 12/11/16 09:30 Rocephin 2gm Ivpb (Pre-Docked) IVPB 2 gm DAILY FIDELIA Administration Protocol Clopidogrel Bisulfate 75 mg 12/04/16 10:00 12/11/16 09:29 Plavix - PO 75 mg DAILY FIDELIA Administration Heparin Sodium (Porcine) 1,000 unit 12/03/16 09:45 12/09/16 09:13 Heparin - IVPUSH 1,000 unit PRN PRN Administration Heparin Heparin Sodium (Porcine) 5,000 unit 12/03/16 09:45 12/05/16 21:50 Heparin - IVPUSH 5,000 unit PRN PRN Administration Heparin Heparin Sodium (Porcine) 25, 500 mls @ 20 mls/hr 12/03/16 10:30 12/10/16 09:56 000 unit/ Sodium Chloride IV Not Given TITR FIDELIA Protocol 1,000 UNIT/HR Metoprolol Succinate 75 mg 12/09/16 22:00 12/11/16 09:29 Toprol Xl - PO 75 mg BID FIDELIA Administration Metoprolol Tartrate 5 mg 12/05/16 09:47 12/08/16 21:08 Lopressor Injection - IVPUSH 5 mg Q4H PRN Administration TACHYCARDIA Pantoprazole Sodium 20 mg 12/03/16 10:00 12/11/16 09:29 Protonix - PO 20 mg DAILY FIDELIA Administration Polyethylene Glycol 17 gm 12/07/16 10:00 12/11/16 09:30 Miralax (For Daily Use) - PO 17 grams DAILY FIDELIA Administration Vital Signs Period Temp Pulse Resp BP Sys/Osman Pulse Ox Last 24 Hr 97.6 F-98.7 F 101-120 18-20 124-139/76-95 98-100 Constitutional: Yes: No Distress, Calm Eyes: No: Sclera Icterus HENT: No: Nasal Congestion Cardiovascular: Yes: irregular and Rhythm, S1, S2, Other (PMI non diplaced). No : Gallop, Murmur Respiratory: Yes: CTA Bilaterally (anteriorly (painful to sit forward)). No: Accessory Muscle Use, Rales, Wheezes Gastrointestinal: Yes: Normal Bowel Sounds, Soft. No: Tenderness Edema: No Integumentary: No Jaundice diaphoresis Neurological: Yes: Alert, Oriented (x3) Psychiatric: No: Agitated Labs: CBC, BMP 12/11/16 05:35 12/11/16 05:35 Other (tele: AF low 100s) echo 08/2016: low nl lvef, nl rv, mild tr cxr: clear lungs ecg 12/02/16: sr, nl pr, old lbbb echo 11/2016: nl lvef, apicalseptal AK, nl rv size, mild mr, mild tr, nl rvsp dypiridamole stress 11/2016: resting ekg: afib with LBBB. moderate zone of inferolateral infarct with kaylah-infarct ischemia and associated wma. small area of apical /anteroapical ischemia. EF 37%. 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 New WMA but no high risk lesion on stress and patient with recent + blood cultures therefore will defer further eval with cardiac catheterization and cont to manage medically. -sunday was held due to low bp -cont bb, statin - sepsis, +bld cxs: -typical organism for SBE (strep agalact (group B)) in blood first set--repeat cx's ngtd -on abx per ID -no signs of valve failure, no clinical SBE findings -d/w'd ID (dr raymond): rpt BCx's negative. reasonable to treat empirically for presumed SBE with 4 week course of abx--vs can do RADHA and if no signs of SBE can tx wth 2 weeks abx course. also contemplating w/u for septic joint (rheum consult pending, knee XRay ordered to start) -Stress test with no high risk proximal LAD lesion or LM lesion. But patient with recent nstemi, new wall motion abnormalities and multiple areas of infarct/ ischemia. Discussed risks/benefits of RADHA with both patient, family, ID and Dr. Vega who evaluated him yesterday. Given recent Mi will defer inpatient RADHA for now. infected knee: -ortho was considering arthroscopic I & D. -given his recent OK he is hi-risk and would avoid non-urgent procedures unless can be done with local anesthesia/nerve block only -pt is also declining any procedures on knee at this time, says just wants abx for now afib: -new onset here with rvr -likely rvr driven by pain (no signs ongoing active infection/sepsis) -cont bb, rate improved -CHADS VASC = 4, merits prison AC for stroke prevention unless strong contraindication exists (pt denies h/o PUD, GIB, chronic dizzy or falls) -cont UFH gtt for now, change to NOAC when ready for dc HTN: -stable
[2016-12-11] MEDS: HEPARIN - 25,000 UNIT in SODIUM CHLORIDE 495 ML IV SCH (10:30)
--- NOTE | 2016-12-11 10:55 | PN ---
Progress Note, Physician Chief Complaint: no rt knee pain back slightley improed no cp - Current Medication List Current Medications: Active Medications Acetaminophen (Tylenol -) 325 mg PO Q6H PRN PRN Reason: FEVER OR PAIN Last Admin: 12/08/16 21:01 Dose: 325 mg Aspirin (Asa -) 81 mg PO DAILY [facility] Last Admin: 12/11/16 09:29 Dose: 81 mg Atorvastatin Calcium (Lipitor -) 40 mg PO HS [facility] Last Admin: 12/10/16 21:52 Dose: 40 mg Benzocaine/Menthol (Cepacol Lozenge -) 1 each MM Q4H PRN PRN Reason: SORE THROAT Last Admin: 12/04/16 16:17 Dose: 1 each Ceftriaxone Sodium (Rocephin 2gm Ivpb (Pre-Docked)) 2 gm IVPB DAILY FIDELIA PRN Reason: Protocol Last Admin: 12/11/16 09:30 Dose: 2 gm Clopidogrel Bisulfate (Plavix -) 75 mg PO DAILY [facility] Last Admin: 12/11/16 09:29 Dose: 75 mg Heparin Sodium (Porcine) (Heparin -) 1,000 unit IVPUSH PRN PRN PRN Reason: Heparin Last Admin: 12/09/16 09:13 Dose: 1,000 unit Heparin Sodium (Porcine) (Heparin -) 5,000 unit IVPUSH PRN PRN PRN Reason: Heparin Last Admin: 12/05/16 21:50 Dose: 5,000 unit Heparin Sodium (Porcine) 25, (000 unit/ Sodium Chloride) 500 mls @ 20 mls/hr IV TITR FIDELIA; 1,000 UNIT/HR PRN Reason: Protocol Last Admin: 12/10/16 09:56 Dose: Not Given Metoprolol Succinate (Toprol Xl -) 75 mg PO BID [facility] Last Admin: 12/11/16 09:29 Dose: 75 mg Metoprolol Tartrate (Lopressor Injection -) 5 mg IVPUSH Q4H PRN PRN Reason: TACHYCARDIA Last Admin: 12/08/16 21:08 Dose: 5 mg Pantoprazole Sodium (Protonix -) 20 mg PO DAILY [facility] Last Admin: 12/11/16 09:29 Dose: 20 mg Polyethylene Glycol (Miralax (For Daily Use) -) 17 gm PO DAILY [facility] Last Admin: 12/11/16 09:30 Dose: 17 grams - Objective Vital Signs: Vital Signs Temperature 97.9 F 12/11/16 10:00 Pulse Rate 110 H 12/11/16 10:00 Respiratory Rate 22 12/11/16 10:00 Blood Pressure 140/79 12/11/16 10:00 O2 Sat by Pulse Oximetry (%) 98 12/11/16 06:00 Constitutional: Yes: Calm Eyes: Yes: WNL HENT: Yes: WNL Neck: Yes: WNL Cardiovascular: Yes: Pulse Irregular Respiratory: Yes: WNL Gastrointestinal: Yes: WNL ...Rectal Exam: Yes: Deferred Genitourinary: Yes: WNL, Urethral Discharge Musculoskeletal: Yes: Back Pain Extremities: Yes: WNL Edema: No Peripheral Pulses WNL: Yes Integumentary: Yes: WNL Wound/Incision: Yes: Clean/Dry Neurological: Yes: WNL ...Motor Strength: WNL Psychiatric: Yes: WNL Labs: CBC, BMP 12/11/16 05:35 12/11/16 05:35 INR, PTT INR 1.27 (0.82-1.09) H 12/03/16 10:10 Problem List - Problems (1) Hyponatremia Code(s): E87.1 - HYPO-OSMOLALITY AND HYPONATREMIA Assessment/Plan pt eval mri back tamadol bid ? d/c heparin [place] cath in for now cont iv atx and local wd care vsacral 2 ulcer chk wbc in am
--- NOTE | 2016-12-11 15:13 | PN ---
Progress Note, Physician Chief Complaint: More awake and alert C/O generalized joint pains No fever/ chills - Current Medication List Current Medications: Active Medications Acetaminophen (Tylenol -) 325 mg PO Q6H PRN PRN Reason: FEVER OR PAIN Last Admin: 12/08/16 21:01 Dose: 325 mg Aspirin (Asa -) 81 mg PO DAILY [facility] Last Admin: 12/11/16 09:29 Dose: 81 mg Atorvastatin Calcium (Lipitor -) 40 mg PO HS [facility] Last Admin: 12/10/16 21:52 Dose: 40 mg Benzocaine/Menthol (Cepacol Lozenge -) 1 each MM Q4H PRN PRN Reason: SORE THROAT Last Admin: 12/04/16 16:17 Dose: 1 each Ceftriaxone Sodium (Rocephin 2gm Ivpb (Pre-Docked)) 2 gm IVPB DAILY FIDELIA PRN Reason: Protocol Last Admin: 12/11/16 09:30 Dose: 2 gm Clopidogrel Bisulfate (Plavix -) 75 mg PO DAILY [facility] Last Admin: 12/11/16 09:29 Dose: 75 mg Heparin Sodium (Porcine) (Heparin -) 1,000 unit IVPUSH PRN PRN PRN Reason: Heparin Last Admin: 12/09/16 09:13 Dose: 1,000 unit Heparin Sodium (Porcine) (Heparin -) 5,000 unit IVPUSH PRN PRN PRN Reason: Heparin Last Admin: 12/05/16 21:50 Dose: 5,000 unit Heparin Sodium (Porcine) 25, (000 unit/ Sodium Chloride) 500 mls @ 20 mls/hr IV TITR FIDELIA; 1,000 UNIT/HR PRN Reason: Protocol Last Admin: 12/10/16 09:56 Dose: Not Given Metoprolol Succinate (Toprol Xl -) 75 mg PO BID [facility] Last Admin: 12/11/16 09:29 Dose: 75 mg Metoprolol Tartrate (Lopressor Injection -) 5 mg IVPUSH Q4H PRN PRN Reason: TACHYCARDIA Last Admin: 12/08/16 21:08 Dose: 5 mg Pantoprazole Sodium (Protonix -) 20 mg PO DAILY [facility] Last Admin: 12/11/16 09:29 Dose: 20 mg Polyethylene Glycol (Miralax (For Daily Use) -) 17 gm PO DAILY [facility] Last Admin: 12/11/16 09:30 Dose: 17 grams Tramadol HCl (Ultram -) 50 mg PO BID FIDELIA Stop: 12/15/16 10:01 - Objective Vital Signs: Vital Signs Temperature 97.9 F 12/11/16 13:45 Pulse Rate 105 H 12/11/16 13:45 Respiratory Rate 18 12/11/16 13:45 Blood Pressure 121/75 12/11/16 13:45 O2 Sat by Pulse Oximetry (%) 97 12/11/16 10:00 Constitutional: Yes: No Distress Eyes: Yes: Conjunctiva Clear Cardiovascular: Yes: Regular Rate and Rhythm, S1, S2 Respiratory: Yes: CTA Bilaterally Gastrointestinal: Yes: Normal Bowel Sounds. No: Tenderness Extremities: Yes: Other (Healed surgical scar R knee Slight swelling; no erythema/ warmth) Edema: Yes Labs: CBC, BMP 12/11/16 05:35 12/11/16 05:35 INR, PTT INR 1.27 (0.82-1.09) H 12/03/16 10:10 Assessment/Plan Grp B strep bacteremia,probable endocarditis Possible infected R TKR ACS Continue ceftriaxone
[2016-12-11] MEDS: traMADol HCL 50 MG TABLET PO SCH (18:18)
[2016-12-11] MEDS ORDERED: PT OWN MED DRAWER 7, Y5N ONE (18:20)
[2016-12-11] MEDS: ACETAMINOPHEN 325 MG TABLET (FP) PO PRN (21:36)
[2016-12-11] MEDS: ATORVASTATIN CA 40 MG TABLET (FP) PO SCH (21:36)
[2016-12-11] MEDS ORDERED: traMADol HCL 50 MG TABLET PO SCH (22:00)
[2016-12-12] MEDS: traMADol HCL 50 MG TABLET PO SCH ×2 (05:42→17:33)
[2016-12-12 08:05] LABS: BASOPHIL 0.6 % (0-2.0); EOSINOPHIL 0.6 % (0-4.5); MCH 32.7 pg (25.7-33.7); MCHC 33.6 g/dl (32.0-35.9); MEAN CELL VOLUME 97.2 fl (80-96); MEAN PLT VOLUME 9.4 fl (7.5-11.1); NEUTROPHILS 83.8 % (42.8-82.8); PLATELET COUNT 405 K/MM3 (134-434); RDW 13.2 % (11.9-15.9); WHITE BLOOD COUNT 11.2 K/mm3 (4.0-10.0)
[2016-12-12] MEDS: HEPARIN - 25,000 UNIT in SODIUM CHLORIDE 495 ML IV SCH (09:26)
[2016-12-12] MEDS: ASPIRIN 81 MG CHEWABLE TABLETS PO SCH (09:28)
[2016-12-12] MEDS: METOPROLOL SUCCINATE 25 MG TAB.SR.24H (FP) PO SCH ×2 (09:28→21:21)
[2016-12-12] MEDS: PANTOPRAZOLE 20 MG TABLET (FP) PO SCH (09:28)
[2016-12-12] MEDS: CLOPIDOGREL BISULFATE 75 MG TABLET (FP) PO SCH (09:28)
[2016-12-12] MEDS: cefTRIAXone 2 GM/100 ML BAG (PRE-DOCKED) IVPB SCH (09:29)
[2016-12-12] MEDS: POLYETHYLENE GLYCOL 3350 119 GM BTL PO SCH (09:54)
--- NOTE | 2016-12-12 10:23 | PN ---
Progress Note (short form) - Note Progress Note: History of Present Illness: no cp, sob, palpitations, syncope, dizzy remote ex cigs Current Medications Generic Name Dose Route Start Last Admin Trade Name Freq PRN Reason Stop Dose Admin Acetaminophen 325 mg 12/03/16 10:46 12/11/16 21:36 Tylenol - PO 325 mg Q6H PRN Administration FEVER OR PAIN Aspirin 81 mg 12/03/16 10:00 12/12/16 09:28 Asa - PO 81 mg DAILY FIDELIA Administration Atorvastatin Calcium 40 mg 12/06/16 22:00 12/11/16 21:36 Lipitor - PO 40 mg HS FIDELIA Administration Benzocaine/Menthol 1 each 12/04/16 15:29 12/04/16 16:17 Cepacol Lozenge - MM 1 each Q4H PRN Administration SORE THROAT Ceftriaxone Sodium 2 gm 12/04/16 15:45 12/12/16 09:29 Rocephin 2gm Ivpb (Pre-Docked) IVPB 2 gm DAILY FIDELIA Administration Protocol Clopidogrel Bisulfate 75 mg 12/04/16 10:00 12/12/16 09:28 Plavix - PO 75 mg DAILY FIDELIA Administration Heparin Sodium (Porcine) 1,000 unit 12/03/16 09:45 12/09/16 09:13 Heparin - IVPUSH 1,000 unit PRN PRN Administration Heparin Heparin Sodium (Porcine) 5,000 unit 12/03/16 09:45 12/05/16 21:50 Heparin - IVPUSH 5,000 unit PRN PRN Administration Heparin Heparin Sodium (Porcine) 25, 500 mls @ 20 mls/hr 12/03/16 10:30 12/12/16 09:26 000 unit/ Sodium Chloride IV 38 mls/hr TITR FIDELIA Administration Protocol 1,000 UNIT/HR Metoprolol Succinate 75 mg 12/09/16 22:00 12/12/16 09:28 Toprol Xl - PO 75 mg BID FIDELIA Administration Metoprolol Tartrate 5 mg 12/05/16 09:47 12/08/16 21:08 Lopressor Injection - IVPUSH 5 mg Q4H PRN Administration TACHYCARDIA Pantoprazole Sodium 20 mg 12/03/16 10:00 12/12/16 09:28 Protonix - PO 20 mg DAILY FIDELIA Administration Polyethylene Glycol 17 gm 12/07/16 10:00 12/12/16 09:54 Miralax (For Daily Use) - PO 17 grams DAILY FIDELIA Administration Tramadol HCl 50 mg 12/11/16 18:00 12/12/16 05:42 Ultram - PO 12/15/16 06:01 50 mg Q12H FIDELIA Administration Vital Signs Period Temp Pulse Resp BP Sys/Osman Pulse Ox Last 24 Hr 97.7 F-98.8 F 100-120 18-20 121-132/75-87 97-97 Constitutional: Yes: No Distress, Calm Eyes: No: Sclera Icterus HENT: No: Nasal Congestion Cardiovascular: Yes: irregular and Rhythm, S1, S2, Other (PMI non diplaced). No : Gallop, Murmur Respiratory: Yes: CTA Bilaterally (anteriorly (painful to sit forward)). No: Accessory Muscle Use, Rales, Wheezes Gastrointestinal: Yes: Normal Bowel Sounds, Soft. No: Tenderness Edema: No Integumentary: No Jaundice diaphoresis Neurological: Yes: Alert, Oriented (x3) Psychiatric: No: Agitated Labs: CBC, BMP 12/12/16 05:35 12/11/16 05:35 Other (tele: AF 90s-low 100s) echo 08/2016: low nl lvef, nl rv, mild tr cxr: clear lungs ecg 12/02/16: sr, nl pr, old lbbb echo 11/2016: nl lvef, apicalseptal AK, nl rv size, mild mr, mild tr, nl rvsp dypiridamole stress 11/2016: resting ekg: afib with LBBB. moderate zone of inferolateral infarct with kaylah-infarct ischemia and associated wma. small area of apical /anteroapical ischemia. EF 37%. 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 New WMA but no high risk lesion on stress and patient with recent + blood cultures therefore will defer further eval with cardiac catheterization and cont to manage medically. -sunday was held due to low bp -cont bb, statin sepsis, +bld cxs: -typical organism for SBE (strep agalact (group B)) in blood first set--repeat cx's ngtd -on abx per ID -no signs of valve failure, no clinical SBE findings -d/w'd ID (dr raymond): rpt BCx's negative. reasonable to treat empirically for presumed SBE with 4 week course of abx--vs can do RADHA and if no signs of SBE can tx wth 2 weeks abx course. also contemplating w/u for septic joint (rheum consult pending, knee XRay ordered to start) -Stress test with no high risk proximal LAD lesion or LM lesion. But patient with recent nstemi, new wall motion abnormalities and multiple areas of infarct/ ischemia. Discussed risks/benefits of RADHA with both patient, family, ID and Dr. Vega who evaluated him yesterday. Given recent Mi will defer RADHA for now. infected knee: -ortho was considering arthroscopic I & D. -given his recent OK he is hi-risk and would avoid non-urgent procedures unless can be done with local anesthesia/nerve block only -pt is also declining any procedures on knee at this time, says just wants abx for now afib: -new onset here with rvr -likely rvr driven by pain (no signs ongoing active infection/sepsis) -cont bb, rate improved -CHADS VASC = 4, merits half-way AC for stroke prevention unless strong contraindication exists (pt denies h/o PUD, GIB, chronic dizzy or falls) -cont UFH gtt for now, change to NOAC when no procedures planned/ready for dc HTN: -stable can dc tele
--- NOTE | 2016-12-12 11:07 | PN ---
Progress Note (short form) - Note Progress Note: Ortho Pt seen and examined- right knee improving Selected Entries 12/12/16 08:00 Temperature 97.7 F Pulse Rate 100 H Respiratory 20 Rate Blood Pressure 124/83 Laboratory Tests 12/12/16 05:35 WBC 11.2 H Hgb 12.0 Hct 35.7 Plt Count 405 decr swelling, decr pain, incr rom nvi a/p NTD abx as per ID will follow d/w Dr. Jarvis
--- NOTE | 2016-12-12 13:37 | PN ---
Progress Note, Physician Chief Complaint: back pain when moving pt no other complaints - Current Medication List Current Medications: Active Medications Acetaminophen (Tylenol -) 325 mg PO Q6H PRN PRN Reason: FEVER OR PAIN Last Admin: 12/11/16 21:36 Dose: 325 mg Aspirin (Asa -) 81 mg PO DAILY [facility] Last Admin: 12/12/16 09:28 Dose: 81 mg Atorvastatin Calcium (Lipitor -) 40 mg PO HS [facility] Last Admin: 12/11/16 21:36 Dose: 40 mg Benzocaine/Menthol (Cepacol Lozenge -) 1 each MM Q4H PRN PRN Reason: SORE THROAT Last Admin: 12/04/16 16:17 Dose: 1 each Ceftriaxone Sodium (Rocephin 2gm Ivpb (Pre-Docked)) 2 gm IVPB DAILY FIDELIA PRN Reason: Protocol Last Admin: 12/12/16 09:29 Dose: 2 gm Clopidogrel Bisulfate (Plavix -) 75 mg PO DAILY [facility] Last Admin: 12/12/16 09:28 Dose: 75 mg Heparin Sodium (Porcine) (Heparin -) 1,000 unit IVPUSH PRN PRN PRN Reason: Heparin Last Admin: 12/09/16 09:13 Dose: 1,000 unit Heparin Sodium (Porcine) (Heparin -) 5,000 unit IVPUSH PRN PRN PRN Reason: Heparin Last Admin: 12/05/16 21:50 Dose: 5,000 unit Heparin Sodium (Porcine) 25, (000 unit/ Sodium Chloride) 500 mls @ 20 mls/hr IV TITR FIDELIA; 1,000 UNIT/HR PRN Reason: Protocol Last Admin: 12/12/16 09:26 Dose: 38 mls/hr Metoprolol Succinate (Toprol Xl -) 75 mg PO BID [facility] Last Admin: 12/12/16 09:28 Dose: 75 mg Metoprolol Tartrate (Lopressor Injection -) 5 mg IVPUSH Q4H PRN PRN Reason: TACHYCARDIA Last Admin: 12/08/16 21:08 Dose: 5 mg Pantoprazole Sodium (Protonix -) 20 mg PO DAILY [facility] Last Admin: 12/12/16 09:28 Dose: 20 mg Polyethylene Glycol (Miralax (For Daily Use) -) 17 gm PO DAILY [facility] Last Admin: 12/12/16 09:54 Dose: 17 grams Tramadol HCl (Ultram -) 50 mg PO Q12H FIDELIA Stop: 12/15/16 06:01 Last Admin: 12/12/16 05:42 Dose: 50 mg - Objective Vital Signs: Vital Signs Temperature 97.7 F 12/12/16 08:00 Pulse Rate 100 H 12/12/16 08:00 Respiratory Rate 20 12/12/16 08:00 Blood Pressure 124/83 12/12/16 08:00 O2 Sat by Pulse Oximetry (%) 96 12/12/16 09:00 Constitutional: Yes: Other (back pain) Eyes: Yes: WNL HENT: Yes: WNL Neck: Yes: WNL Cardiovascular: Yes: Pulse Irregular Respiratory: Yes: WNL Gastrointestinal: Yes: WNL ...Rectal Exam: Yes: Deferred Genitourinary: Yes: Other ([facility]) Breast(s): Yes: WNL Musculoskeletal: Yes: Back Pain Extremities: Yes: WNL Edema: No Peripheral Pulses WNL: Yes Integumentary: Yes: WNL Neurological: Yes: WNL ...Motor Strength: WNL Psychiatric: Yes: WNL Labs: CBC, BMP 12/12/16 05:35 12/11/16 05:35 INR, PTT INR 1.27 (0.82-1.09) H 12/03/16 10:10 Problem List - Problems (1) Hyponatremia Code(s): E87.1 - HYPO-OSMOLALITY AND HYPONATREMIA Assessment/Plan get [facility] more iv daily ceftrioxone d/c heparin when sx and stay off cont asa plavix only may keep pt until thursday for d/c cont oob pt eval
--- NOTE | 2016-12-12 14:59 | PN ---
Progress Note, Physician History of Present Illness: Awake, alert No c/o knee pain or other joint pains No c/o fever/ chills - Current Medication List Current Medications: Active Medications Acetaminophen (Tylenol -) 325 mg PO Q6H PRN PRN Reason: FEVER OR PAIN Last Admin: 12/11/16 21:36 Dose: 325 mg Aspirin (Asa -) 81 mg PO DAILY [facility] Last Admin: 12/12/16 09:28 Dose: 81 mg Atorvastatin Calcium (Lipitor -) 40 mg PO HS [facility] Last Admin: 12/11/16 21:36 Dose: 40 mg Benzocaine/Menthol (Cepacol Lozenge -) 1 each MM Q4H PRN PRN Reason: SORE THROAT Last Admin: 12/04/16 16:17 Dose: 1 each Ceftriaxone Sodium (Rocephin 2gm Ivpb (Pre-Docked)) 2 gm IVPB DAILY FIDELIA PRN Reason: Protocol Last Admin: 12/12/16 09:29 Dose: 2 gm Clopidogrel Bisulfate (Plavix -) 75 mg PO DAILY [facility] Last Admin: 12/12/16 09:28 Dose: 75 mg Heparin Sodium (Porcine) (Heparin -) 1,000 unit IVPUSH PRN PRN PRN Reason: Heparin Last Admin: 12/09/16 09:13 Dose: 1,000 unit Heparin Sodium (Porcine) (Heparin -) 5,000 unit IVPUSH PRN PRN PRN Reason: Heparin Last Admin: 12/05/16 21:50 Dose: 5,000 unit Heparin Sodium (Porcine) 25, (000 unit/ Sodium Chloride) 500 mls @ 20 mls/hr IV TITR FIDELIA; 1,000 UNIT/HR PRN Reason: Protocol Last Admin: 12/12/16 09:26 Dose: 38 mls/hr Metoprolol Succinate (Toprol Xl -) 75 mg PO BID [facility] Last Admin: 12/12/16 09:28 Dose: 75 mg Metoprolol Tartrate (Lopressor Injection -) 5 mg IVPUSH Q4H PRN PRN Reason: TACHYCARDIA Last Admin: 12/08/16 21:08 Dose: 5 mg Pantoprazole Sodium (Protonix -) 20 mg PO DAILY [facility] Last Admin: 12/12/16 09:28 Dose: 20 mg Polyethylene Glycol (Miralax (For Daily Use) -) 17 gm PO DAILY [facility] Last Admin: 12/12/16 09:54 Dose: 17 grams Tramadol HCl (Ultram -) 50 mg PO Q12H FIDELIA Stop: 12/15/16 06:01 Last Admin: 12/12/16 05:42 Dose: 50 mg - Objective Vital Signs: Vital Signs Temperature 97.7 F 12/12/16 08:00 Pulse Rate 100 H 12/12/16 08:00 Respiratory Rate 20 12/12/16 08:00 Blood Pressure 124/83 12/12/16 08:00 O2 Sat by Pulse Oximetry (%) 96 12/12/16 09:00 Constitutional: Yes: No Distress Eyes: Yes: Conjunctiva Clear Cardiovascular: Yes: Regular Rate and Rhythm, S1, S2 Respiratory: Yes: CTA Bilaterally Gastrointestinal: Yes: Normal Bowel Sounds, Soft. No: Tenderness Extremities: Yes: Other (R knee swelling and warmth No erythema) Labs: CBC, BMP 12/12/16 05:35 12/11/16 05:35 INR, PTT INR 1.27 (0.82-1.09) H 12/03/16 10:10 Assessment/Plan Grp B strep bacteremia,probable endocarditis Possible infected R TKR ACS Continue ceftriaxone Needs PICC for outpatient antibiotics Would treat 6 weeks for presumed infected R knee
[2016-12-12] MEDS: ATORVASTATIN CA 40 MG TABLET (FP) PO SCH (21:21)
[2016-12-13] MEDS: HEPARIN - 25,000 UNIT in SODIUM CHLORIDE 495 ML IV SCH (03:15)
[2016-12-13] MEDS: traMADol HCL 50 MG TABLET PO SCH ×3 (05:37→17:38)
--- NOTE | 2016-12-13 10:47 | PN ---
Progress Note, Physician History of Present Illness: Awake, alert C/O L LE spasms, generalized joint pain No fever/ chills MRI shows discitis/ vertebral osteo L4L5 - Current Medication List Current Medications: Active Medications Acetaminophen (Tylenol -) 325 mg PO Q6H PRN PRN Reason: FEVER OR PAIN Last Admin: 12/11/16 21:36 Dose: 325 mg Aspirin (Asa -) 81 mg PO DAILY [facility] Last Admin: 12/12/16 09:28 Dose: 81 mg Atorvastatin Calcium (Lipitor -) 40 mg PO HS [facility] Last Admin: 12/12/16 21:21 Dose: 40 mg Benzocaine/Menthol (Cepacol Lozenge -) 1 each MM Q4H PRN PRN Reason: SORE THROAT Last Admin: 12/04/16 16:17 Dose: 1 each Ceftriaxone Sodium (Rocephin 2gm Ivpb (Pre-Docked)) 2 gm IVPB DAILY [facility] PRN Reason: Protocol Last Admin: 12/12/16 09:29 Dose: 2 gm Clopidogrel Bisulfate (Plavix -) 75 mg PO DAILY [facility] Last Admin: 12/12/16 09:28 Dose: 75 mg Heparin Sodium (Porcine) (Heparin -) 1,000 unit IVPUSH PRN PRN PRN Reason: Heparin Last Admin: 12/09/16 09:13 Dose: 1,000 unit Heparin Sodium (Porcine) (Heparin -) 5,000 unit IVPUSH PRN PRN PRN Reason: Heparin Last Admin: 12/05/16 21:50 Dose: 5,000 unit Heparin Sodium (Porcine) 25, (000 unit/ Sodium Chloride) 500 mls @ 20 mls/hr IV TITR [facility]EL[facility]; 1,000 UNIT/HR PRN Reason: Protocol Last Admin: 12/13/16 03:15 Dose: 38 mls/hr Metoprolol Succinate (Toprol Xl -) 75 mg PO BID [facility] Last Admin: 12/12/16 21:21 Dose: 75 mg Metoprolol Tartrate (Lopressor Injection -) 5 mg IVPUSH Q4H PRN PRN Reason: TACHYCARDIA Last Admin: 12/08/16 21:08 Dose: 5 mg Pantoprazole Sodium (Protonix -) 20 mg PO DAILY [facility] Last Admin: 12/12/16 09:28 Dose: 20 mg Polyethylene Glycol (Miralax (For Daily Use) -) 17 gm PO DAILY [facility] Last Admin: 12/12/16 09:54 Dose: 17 grams Tramadol HCl (Ultram -) 50 mg PO Q12H [facility] Stop: 12/15/16 06:01 Last Admin: 12/13/16 05:37 Dose: 50 mg - Objective Vital Signs: Vital Signs Temperature 98.6 F 12/13/16 05:29 Pulse Rate 77 12/13/16 05:29 Respiratory Rate 20 12/13/16 05:29 Blood Pressure 138/73 12/13/16 05:29 O2 Sat by Pulse Oximetry (%) 95 12/12/16 21:00 Constitutional: Yes: No Distress Eyes: Yes: Conjunctiva Clear Cardiovascular: Yes: Regular Rate and Rhythm, S1, S2 Respiratory: Yes: CTA Bilaterally, Diminished Gastrointestinal: Yes: Normal Bowel Sounds, Soft, Tenderness Extremities: Yes: Other (R knee swelling) Labs: CBC, BMP 12/12/16 05:35 12/11/16 05:35 INR, PTT INR 1.27 (0.82-1.09) H 12/03/16 10:10 Assessment/Plan Grp B strep bacteremia,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
--- NOTE | 2016-12-13 10:52 | PN ---
Progress Note, Physician History of Present Illness: No complaints Tele: NSR with PVCs No chest pain or dyspena - Current Medication List Current Medications: Active Medications Acetaminophen (Tylenol -) 325 mg PO Q6H PRN PRN Reason: FEVER OR PAIN Last Admin: 12/11/16 21:36 Dose: 325 mg Aspirin (Asa -) 81 mg PO DAILY [facility] Last Admin: 12/12/16 09:28 Dose: 81 mg Atorvastatin Calcium (Lipitor -) 40 mg PO HS [facility] Last Admin: 12/12/16 21:21 Dose: 40 mg Benzocaine/Menthol (Cepacol Lozenge -) 1 each MM Q4H PRN PRN Reason: SORE THROAT Last Admin: 12/04/16 16:17 Dose: 1 each Ceftriaxone Sodium (Rocephin 2gm Ivpb (Pre-Docked)) 2 gm IVPB DAILY [facility] PRN Reason: Protocol Last Admin: 12/12/16 09:29 Dose: 2 gm Clopidogrel Bisulfate (Plavix -) 75 mg PO DAILY [facility] Last Admin: 12/12/16 09:28 Dose: 75 mg Heparin Sodium (Porcine) (Heparin -) 1,000 unit IVPUSH PRN PRN PRN Reason: Heparin Last Admin: 12/09/16 09:13 Dose: 1,000 unit Heparin Sodium (Porcine) (Heparin -) 5,000 unit IVPUSH PRN PRN PRN Reason: Heparin Last Admin: 12/05/16 21:50 Dose: 5,000 unit Heparin Sodium (Porcine) 25, (000 unit/ Sodium Chloride) 500 mls @ 20 mls/hr IV TITR [facility]EL[facility]; 1,000 UNIT/HR PRN Reason: Protocol Last Admin: 12/13/16 03:15 Dose: 38 mls/hr Metoprolol Succinate (Toprol Xl -) 75 mg PO BID [facility] Last Admin: 12/12/16 21:21 Dose: 75 mg Metoprolol Tartrate (Lopressor Injection -) 5 mg IVPUSH Q4H PRN PRN Reason: TACHYCARDIA Last Admin: 12/08/16 21:08 Dose: 5 mg Pantoprazole Sodium (Protonix -) 20 mg PO DAILY [facility] Last Admin: 12/12/16 09:28 Dose: 20 mg Polyethylene Glycol (Miralax (For Daily Use) -) 17 gm PO DAILY [facility] Last Admin: 12/12/16 09:54 Dose: 17 grams Tramadol HCl (Ultram -) 50 mg PO Q12H [facility] Stop: 12/15/16 06:01 Last Admin: 12/13/16 05:37 Dose: 50 mg - Objective Vital Signs: Vital Signs Temperature 98.6 F 12/13/16 05:29 Pulse Rate 77 12/13/16 05:29 Respiratory Rate 20 12/13/16 05:29 Blood Pressure 138/73 12/13/16 05:29 O2 Sat by Pulse Oximetry (%) 95 12/12/16 21:00 Constitutional: Yes: No Distress, Calm Eyes: Yes: WNL HENT: Yes: WNL Neck: Yes: WNL Cardiovascular: Yes: Regular Rate and Rhythm Respiratory: Yes: WNL Gastrointestinal: Yes: WNL Extremities: Yes: WNL Edema: No Labs: CBC, BMP 12/12/16 05:35 12/11/16 05:35 INR, PTT INR 1.27 (0.82-1.09) H 12/03/16 10:10 Assessment/Plan hx cad s/p pci 2012, here with NSTEMI: -pt w/o cardiac symptoms but troponin 20 here on presentation to ER (12/02)--> trended down -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 New WMA but no high risk lesion on stress and patient with recent + blood cultures therefore will defer further eval with cardiac catheterization and cont to manage medically. -sunday was held due to low bp -cont bb, statin sepsis, +bld cxs: -typical organism for SBE (strep agalact (group B)) in blood first set--repeat cx's ngtd -on abx per ID -no signs of valve failure, no clinical SBE findings -d/w'd ID (dr raymond): rpt BCx's negative. reasonable to treat empirically for presumed SBE with 4 week course of abx--vs can do RADHA and if no signs of SBE can tx wth 2 weeks abx course. also contemplating w/u for septic joint (rheum consult pending, knee XRay ordered to start) -Stress test with no high risk proximal LAD lesion or LM lesion. But patient with recent nstemi, new wall motion abnormalities and multiple areas of infarct/ ischemia. Discussed risks/benefits of RADHA with both patient, family, ID and Dr. Vega who evaluated him yesterday. Given recent Mi will defer RADHA for now. infected knee: -ortho was considering arthroscopic I & D. -given his recent [place] he is hi-risk and would avoid non-urgent procedures unless can be done with local anesthesia/nerve block only -pt is also declining any procedures on knee at this time, says just wants abx for now afib: -new onset here with rvr -likely rvr driven by pain (no signs ongoing active infection/sepsis) -cont bb, rate improved -CHADS VASC = 4, merits skilled nursing AC for stroke prevention unless strong contraindication exists (pt denies h/o PUD, GIB, chronic dizzy or falls) -cont UFH gtt for now, change to NOAC when no procedures planned/ready for dc HTN: -stable can dc tele
[2016-12-13] MEDS: ASPIRIN 81 MG CHEWABLE TABLETS PO SCH (11:28)
[2016-12-13] MEDS: METOPROLOL SUCCINATE 25 MG TAB.SR.24H (FP) PO SCH ×2 (11:28→21:30)
[2016-12-13] MEDS: PANTOPRAZOLE 20 MG TABLET (FP) PO SCH (11:28)
[2016-12-13] MEDS: POLYETHYLENE GLYCOL 3350 119 GM BTL PO SCH (11:29)
[2016-12-13] MEDS: CLOPIDOGREL BISULFATE 75 MG TABLET (FP) PO SCH (11:29)
[2016-12-13] MEDS: cefTRIAXone 2 GM/100 ML BAG (PRE-DOCKED) IVPB SCH (11:29)
[2016-12-13] MEDS ORDERED: morphine CARPU-JECT 4 MG/1 ML DISP.SYRIN ONE (12:44)
[2016-12-13] MEDS ORDERED: morphine CARPU-JECT 4 MG/1 ML DISP.SYRIN IVPUSH ONE (13:10)
[2016-12-13] MEDS ORDERED: KETOROLAC TROMETHAMINE 60 MG/2 ML VIAL IM ONE (13:26)
--- NOTE | 2016-12-13 13:26 | PN ---
Progress Note, Physician Chief Complaint: back pain n/c mri showed aseptic dicsitis mri to be repeated 5 days later r/o osteomylitis pic line thursday d/c heparin in am thursday toradol im x tramadol 50 bid watch out opiates in elderly no steroids tylenol po - Current Medication List Current Medications: Active Medications Acetaminophen (Tylenol -) 325 mg PO Q6H PRN PRN Reason: FEVER OR PAIN Last Admin: 12/11/16 21:36 Dose: 325 mg Aspirin (Asa -) 81 mg PO DAILY [facility] Last Admin: 12/13/16 11:28 Dose: 81 mg Atorvastatin Calcium (Lipitor -) 40 mg PO HS [facility] Last Admin: 12/12/16 21:21 Dose: 40 mg Benzocaine/Menthol (Cepacol Lozenge -) 1 each MM Q4H PRN PRN Reason: SORE THROAT Last Admin: 12/04/16 16:17 Dose: 1 each Ceftriaxone Sodium (Rocephin 2gm Ivpb (Pre-Docked)) 2 gm IVPB DAILY [facility] PRN Reason: Protocol Last Admin: 12/13/16 11:29 Dose: 2 gm Clopidogrel Bisulfate (Plavix -) 75 mg PO DAILY [facility] Last Admin: 12/13/16 11:29 Dose: 75 mg Heparin Sodium (Porcine) (Heparin -) 1,000 unit IVPUSH PRN PRN PRN Reason: Heparin Last Admin: 12/09/16 09:13 Dose: 1,000 unit Heparin Sodium (Porcine) (Heparin -) 5,000 unit IVPUSH PRN PRN PRN Reason: Heparin Last Admin: 12/05/16 21:50 Dose: 5,000 unit Heparin Sodium (Porcine) 25, (000 unit/ Sodium Chloride) 500 mls @ 20 mls/hr IV TITR [facility]; 1,000 UNIT/HR PRN Reason: Protocol Last Admin: 12/13/16 03:15 Dose: 38 mls/hr Metoprolol Succinate (Toprol Xl -) 75 mg PO BID [facility] Last Admin: 12/13/16 11:28 Dose: 75 mg Metoprolol Tartrate (Lopressor Injection -) 5 mg IVPUSH Q4H PRN PRN Reason: TACHYCARDIA Last Admin: 12/08/16 21:08 Dose: 5 mg Pantoprazole Sodium (Protonix -) 20 mg PO DAILY [facility] Last Admin: 12/13/16 11:28 Dose: 20 mg Polyethylene Glycol (Miralax (For Daily Use) -) 17 gm PO DAILY [facility] Last Admin: 12/13/16 11:29 Dose: 17 grams Tramadol HCl (Ultram -) 50 mg PO Q12H [facility] Stop: 12/15/16 06:01 Last Admin: 12/13/16 05:37 Dose: 50 mg - Objective Vital Signs: Vital Signs Temperature 98.6 F 12/13/16 05:29 Pulse Rate 77 12/13/16 05:29 Respiratory Rate 20 12/13/16 05:29 Blood Pressure 138/73 12/13/16 05:29 O2 Sat by Pulse Oximetry (%) 95 12/12/16 21:00 Labs: CBC, BMP 12/12/16 05:35 12/11/16 05:35 INR, PTT INR 1.27 (0.82-1.09) H 12/03/16 10:10 Problem List - Problems (1) Hyponatremia Code(s): E87.1 - HYPO-OSMOLALITY AND HYPONATREMIA
[2016-12-13] MEDS ORDERED: MORPHINE IVPB SCH (14:00)
[2016-12-13] MEDS ORDERED: SODIUM CHLORIDE IVPB SCH (14:00)
[2016-12-13] MEDS ORDERED: FUROSEMIDE 40 MG/4 ML INJECTABLE VIAL ONE (16:51)
[2016-12-13] MEDS ORDERED: FUROSEMIDE 40 MG/4 ML INJECTABLE VIAL IVPUSH ONE ×2 (17:00→17:37)
[2016-12-13] MEDS: ATORVASTATIN CA 40 MG TABLET (FP) PO SCH (21:30)
[2016-12-14] MEDS ORDERED: HEPARIN INFUSION - 500 ML IVPB ONE ×2 (06:07→20:36)
[2016-12-14] MEDS: morphine CARPU-JECT 4 MG/1 ML DISP.SYRIN IVPUSH PRN ×2 (06:10→21:43)
[2016-12-14] MEDS: traMADol HCL 50 MG TABLET PO SCH ×2 (06:13→17:15)
[2016-12-14] MEDS: PANTOPRAZOLE 20 MG TABLET (FP) PO SCH (09:58)
[2016-12-14] MEDS: ASPIRIN 81 MG CHEWABLE TABLETS PO SCH (09:58)
[2016-12-14] MEDS: POLYETHYLENE GLYCOL 3350 119 GM BTL PO SCH (09:59)
[2016-12-14] MEDS: CLOPIDOGREL BISULFATE 75 MG TABLET (FP) PO SCH (09:59)
[2016-12-14] MEDS: METOPROLOL SUCCINATE 25 MG TAB.SR.24H (FP) PO SCH ×2 (09:59→21:43)
[2016-12-14] MEDS: cefTRIAXone 2 GM/100 ML BAG (PRE-DOCKED) IVPB SCH (10:00)
[2016-12-14] MEDS: ACETAMINOPHEN 325 MG TABLET (FP) PO PRN (10:05)
[2016-12-14] MEDS: BENZOCAINE/MENTH/CETYLPYRD CL 1 EACH LOZENGE MM PRN (10:14)
--- NOTE | 2016-12-14 10:39 | PN ---
Progress Note, Physician History of Present Illness: No complaints No events overnight Tele: None - Current Medication List Current Medications: Active Medications Acetaminophen (Tylenol -) 325 mg PO Q6H PRN PRN Reason: FEVER OR PAIN Last Admin: 12/14/16 10:05 Dose: 325 mg Aspirin (Asa -) 81 mg PO DAILY [facility] Last Admin: 12/14/16 09:58 Dose: 81 mg Atorvastatin Calcium (Lipitor -) 40 mg PO HS [facility] Last Admin: 12/13/16 21:30 Dose: 40 mg Benzocaine/Menthol (Cepacol Lozenge -) 1 each MM Q4H PRN PRN Reason: SORE THROAT Last Admin: 12/14/16 10:14 Dose: 1 each Ceftriaxone Sodium (Rocephin 2gm Ivpb (Pre-Docked)) 2 gm IVPB DAILY [facility] PRN Reason: Protocol Last Admin: 12/14/16 10:00 Dose: 2 gm Clopidogrel Bisulfate (Plavix -) 75 mg PO DAILY [facility] Last Admin: 12/14/16 09:59 Dose: 75 mg Heparin Sodium (Porcine) (Heparin -) 1,000 unit IVPUSH PRN PRN PRN Reason: Heparin Last Admin: 12/09/16 09:13 Dose: 1,000 unit Heparin Sodium (Porcine) (Heparin -) 5,000 unit IVPUSH PRN PRN PRN Reason: Heparin Last Admin: 12/05/16 21:50 Dose: 5,000 unit Heparin Sodium (Porcine) 25, (000 unit/ Sodium Chloride) 500 mls @ 20 mls/hr IV TITR [facility]; 1,000 UNIT/HR PRN Reason: Protocol Last Admin: 12/13/16 03:15 Dose: 38 mls/hr Metoprolol Succinate (Toprol Xl -) 75 mg PO BID [facility] Last Admin: 12/14/16 09:59 Dose: 75 mg Metoprolol Tartrate (Lopressor Injection -) 5 mg IVPUSH Q4H PRN PRN Reason: TACHYCARDIA Last Admin: 12/08/16 21:08 Dose: 5 mg Morphine Sulfate (Morphine Injection -) 1 mg IVPUSH Q8H PRN PRN Reason: PAIN Last Admin: 12/14/16 06:10 Dose: 1 mg Pantoprazole Sodium (Protonix -) 20 mg PO DAILY [facility] Last Admin: 12/14/16 09:58 Dose: 20 mg Polyethylene Glycol (Miralax (For Daily Use) -) 17 gm PO DAILY [facility] Last Admin: 12/14/16 09:59 Dose: 17 grams Tramadol HCl (Ultram -) 50 mg PO Q12H [facility] Stop: 12/15/16 06:01 Last Admin: 12/14/16 06:13 Dose: 50 mg - Objective Vital Signs: Vital Signs Temperature 98.1 F 12/14/16 06:00 Pulse Rate 68 12/14/16 06:00 Respiratory Rate 20 12/14/16 06:00 Blood Pressure 142/82 12/14/16 06:00 O2 Sat by Pulse Oximetry (%) 96 12/13/16 21:01 Constitutional: Yes: No Distress, Calm Eyes: Yes: WNL HENT: Yes: WNL Neck: Yes: WNL, Tenderness Cardiovascular: Yes: Regular Rate and Rhythm Respiratory: Yes: CTA Bilaterally Gastrointestinal: Yes: WNL Extremities: Yes: WNL Edema: LLE: Trace, RLE: Trace Labs: CBC, BMP 12/12/16 05:35 12/11/16 05:35 INR, PTT INR 1.27 (0.82-1.09) H 12/03/16 10:10 Assessment/Plan hx cad s/p pci 2012, here with NSTEMI: -pt w/o cardiac symptoms but troponin 20 here on presentation to ER (12/02)--> trended down -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 New WMA but no high risk lesion on stress and patient with recent + blood cultures therefore will defer further eval with cardiac catheterization and cont to manage medically. -sunday was held due to low bp -cont bb, statin sepsis, +bld cxs: -typical organism for SBE (strep agalact (group B)) in blood first set--repeat cx's ngtd -on abx per ID -no signs of valve failure, no clinical SBE findings -d/w'd ID (dr raymond): rpt BCx's negative. reasonable to treat empirically for presumed SBE with 4 week course of abx--vs can do RADHA and if no signs of SBE can tx wth 2 weeks abx course. also contemplating w/u for septic joint (rheum consult pending, knee XRay ordered to start) -Stress test with no high risk proximal LAD lesion or LM lesion. But patient with recent nstemi, new wall motion abnormalities and multiple areas of infarct/ ischemia. Dr. Good discussed risks/benefits of RADHA with both patient, family , ID and Dr. Vega. Given recent Mi will defer RADHA for now. infected knee: -ortho was considering arthroscopic I & D. -given his recent [place] he is hi-risk and would avoid non-urgent procedures unless can be done with local anesthesia/nerve block only -pt is also declining any procedures on knee at this time, says just wants abx for now afib: -new onset here with rvr -likely rvr driven by pain (no signs ongoing active infection/sepsis) -cont bb, rate improved -CHADS VASC = 4, merits group home AC for stroke prevention unless strong contraindication exists (pt denies h/o PUD, GIB, chronic dizzy or falls) -cont UFH gtt for now, change to NOAC when no procedures planned/ready for dc HTN: -stable can dc tele
[2016-12-14] MEDS: HEPARIN - 25,000 UNIT in SODIUM CHLORIDE 495 ML IV SCH (10:53)
[2016-12-14] MEDS: ATORVASTATIN CA 40 MG TABLET (FP) PO SCH (21:42)
[2016-12-15] MEDS: traMADol HCL 50 MG TABLET PO SCH (05:47)
[2016-12-15 07:22] LABS: BASOPHIL 1.1 % (0-2.0); EOSINOPHIL 1.1 % (0-4.5); MCH 32.5 pg (25.7-33.7); MCHC 33.3 g/dl (32.0-35.9); MEAN CELL VOLUME 97.8 fl (80-96); MEAN PLT VOLUME 9.9 fl (7.5-11.1); NEUTROPHILS 82.5 % (42.8-82.8); PLATELET COUNT 384 K/MM3 (134-434); RDW 12.8 % (11.9-15.9); WHITE BLOOD COUNT 11.4 K/mm3 (4.0-10.0)
[2016-12-15 07:27] LABS: ANION GAP 7 (8-16); CALCIUM 7.8 mg/dL (8.5-10.1); CO2 31 mmol/L (21-32); CREATININE 0.6 mg/dL (0.7-1.3); GLUCOSE,RANDOM 102 mg/dL (74-106)
[2016-12-15] MEDS ORDERED: PICC LINE 8 ML FLUSH PROTOCOL IVPUSH PRN (09:11)
[2016-12-15 13:09] VITALS: PULSE 72
[2016-12-15] MEDS: METOPROLOL SUCCINATE 25 MG TAB.SR.24H (FP) PO SCH (13:22)
[2016-12-15] MEDS: ASPIRIN 81 MG CHEWABLE TABLETS PO SCH (13:22)
[2016-12-15] MEDS: POLYETHYLENE GLYCOL 3350 119 GM BTL PO SCH (13:23)
[2016-12-15] MEDS: CLOPIDOGREL BISULFATE 75 MG TABLET (FP) PO SCH (13:23)
[2016-12-15] MEDS: PANTOPRAZOLE 20 MG TABLET (FP) PO SCH (13:23)
[2016-12-15] MEDS: cefTRIAXone 2 GM/100 ML BAG (PRE-DOCKED) IVPB SCH (13:43)
[2016-12-15 15:25] VITALS: BP 150/80; TEMP 98.5
--- NOTE | 2016-12-15 16:06 | DS ---
Physical Examination Vital Signs: Vital Signs Temperature 98.5 F 12/15/16 15:22 Pulse Rate 72 12/15/16 15:22 Respiratory Rate 20 12/15/16 15:22 Blood Pressure 150/80 12/15/16 15:22 O2 Sat by Pulse Oximetry (%) 97 12/15/16 10:00 Constitutional: Yes: No Distress Eyes: Yes: WNL HENT: Yes: WNL Neck: Yes: WNL Cardiovascular: Yes: WNL Respiratory: Yes: WNL Gastrointestinal: Yes: WNL ...Rectal Exam: Yes: Deferred Renal/: Yes: WNL Breast(s): Yes: WNL Musculoskeletal: Yes: Back Pain Extremities: Yes: WNL Edema: No Peripheral Pulses WNL: Yes Integumentary: Yes: Skin Tear Wound/Incision: Yes: Clean/Dry Neurological: Yes: WNL ...Motor Strength: WNL Psychiatric: Yes: WNL Labs: CBC, BMP 12/15/16 05:35 12/15/16 05:35 Discharge Summary Reason For Visit: DEMENTIA LEUKOCYTOSIS JOINT PAIN Current Active Problems Bacteremia (Acute) Bacteremia due to Gram-positive bacteria (Acute) Dementia (Acute) Elevated troponin level (Acute) Endocarditis (Acute) Hypokalemia (Acute) Hyponatremia (Acute) Joint pain (Acute) Leukocytosis (Acute) sacral 2 ulcer harris foot 1 ulcers Condition: Fair - Instructions Diet, Activity, Other Instructions: low na Referrals: Chino Cardenas MD [Staff Physician] - Disposition: HALFWAY FACILITY - Home Medications Comprehensive Discharge Medication List: Ambulatory Orders Aspirin Coated [Ecotrin -] 81 mg PO DAILY 01/14/12 Lisinopril [Prinivil] 10 mg PO DAILY 01/14/12 Omeprazole [Prilosec (RX)] 20 mg PO DAILY #1 capsule 09/20/12 Metoprolol Succinate [Toprol XL -] 25 mg PO DAILY #1 tab.sr.24h 04/13/13 Pravastatin Sodium [Pravachol (Nf)] 20 mg PO HS 09/08/15
== END 2016-12-15 18:22 | DRG 280 ==
LOC: JER 16:27 → JERBED 12-03 02:37 → J2W 12-03 05:05 → J4W 12-05 04:35 → J6S 12-15 07:03
PROVIDERS: ADMIT Family Medicine; ATTEND Family Medicine
PROC: 02HV33Z Insertion of Infusion Device into Superior Vena Cava, Percutaneous Approach (ICD-10-PCS; principal; 2016-12-15)
DX: I21.4 Non-ST elevation (NSTEMI) myocardial infarction (principal); A40.1 Sepsis due to streptococcus, group B; E87.1 Hypo-osmolality and hyponatremia; T84.53XA Infection and inflammatory reaction due to internal right knee prosthesis, initial encounter; N17.9 Acute kidney failure, unspecified; M33.20 Polymyositis, organ involvement unspecified; F03.90 Unspecified dementia, unspecified severity, without behavioral disturbance, psychotic disturbance, mood disturbance, and anxiety; E87.6 Hypokalemia; D72.829 Elevated white blood cell count, unspecified; I25.10 Atherosclerotic heart disease of native coronary artery without angina pectoris; Z98.61 Coronary angioplasty status; I48.91 Unspecified atrial fibrillation; I10 Essential (primary) hypertension; Y83.9 Surgical procedure, unspecified as the cause of abnormal reaction of the patient, or of later complication, without mention of misadventure at the time of the procedure; K21.9 Gastro-esophageal reflux disease without esophagitis; E78.5 Hyperlipidemia, unspecified; R19.7 Diarrhea, unspecified; M13.0 Polyarthritis, unspecified; M46.40 Discitis, unspecified, site unspecified
CPT/HCPCS: 36415; 36569; 71010-TC; 72070-TC; 72100-TC; 72146-TC; 72148-TC; 73564-TC-RT; 74000-TC; 74176-TC; 77001-TC; 78452-TC; 80048; 80053; 81003; 81015; 82085; 82150; 82550; 82553; 82570; 82945; 83605; 83615; 83735; 84153; 84156; 84157; 84484; 84550; 85025; 85027; 85610; 85651; 85730; 86038; 86140; 86200; 86431; 86618; 87040; 87070; 87075; 87086; 87186; 87205; 89051; 93005; 93010; 93017; 93306-TC; 93970-TC; 97161-GP; 99285-25; A9502; C1751; J1644

== ENCOUNTER 2018-04-08 13:45 | Observation (INO) | payer OTHER ==
--- NOTE | 2018-04-08 14:53 | PDOC ---
History of Present Illness - General Chief Complaint: Syncope/Near Syncope Stated Complaint: Syncope/Near Syncope Time Seen by Provider: 04/08/18 14:10 - History of Present Illness Initial Comments: The patient is a 87M w/ a history of NSTEMI, HTN, and HLD who presents for evaluation of transient dizziness while at a park today. The patient denies blurry vision, falling, LOC, previous episodes, or any preceding symptoms. Denies fevers/chills, chest pain, SOB, KIRBY, blurry vision, abdominal pain, diaphoresis, N/V/C/D Denies SPRINGER Currently denies any symptoms. 04/08/18 15:26 Past History - Past Medical History Allergies/Adverse Reactions: Allergies Allergy/AdvReac Type Severity Reaction Status Date / Time No Known Drug Allergies Allergy Verified 04/08/13 10:45 Home Medications: Ambulatory Orders Aspirin Coated [Ecotrin -] 81 mg PO DAILY 01/14/12 Metoprolol Succinate [Toprol XL -] 25 mg PO DAILY #1 tab.sr.24h 04/13/13 Pravastatin Sodium [Pravachol -] 20 mg PO HS 09/08/15 Omeprazole [Prilosec (RX)] 40 mg PO DAILY 04/08/18 Anemia: No Asthma: No Cancer: No Cardiac Disorders: Yes (BLOCKAGE) CVA: No COPD: Yes (STENT 11/27/11) CHF: No Dementia: No Diabetes: No GI Disorders: Yes (ACID REFLUX) Disorders: No HTN: Yes Hypercholesterolemia: Yes Liver Disease: No Seizures: No Thyroid Disease: No - Surgical History Abdominal Surgery: Yes Appendectomy: No Cardiac Surgery: Yes (STENT) Cholecystectomy: No Lung Surgery: No Neurologic Surgery: No Orthopedic Surgery: Yes (TOTAL KNEE REPLACEMENT) - Suicide/Smoking/Psychosocial Hx Smoking History: Never smoked Have you smoked in the past 12 months: No If you are a former smoker, when did you quit?: 35YRS AGO Information on smoking cessation initiated: No Hx Alcohol Use: No Drug/Substance Use Hx: No Substance Use Type: None Hx Substance Use Treatment: No Review of Systems - Review of Systems Able to Perform ROS?: Yes Comments:: GENERAL/CONSTITUTIONAL: No fever or chills. No weakness HEAD, EYES, EARS, NOSE AND THROAT: No change in vision. No ear pain or discharge. No sore throat CARDIOVASCULAR: No chest pain or shortness of breath GASTROINTESTINAL: No nausea, vomiting, diarrhea or constipation GENITOURINARY: No dysuria, frequency, or change in urination MUSCULOSKELETAL: No joint or muscle swelling or pain. No neck or back pain SKIN: No rash NEUROLOGIC: No headache, loss of consciousness, or change in strength/sensation ENDOCRINE: No increased thirst. No abnormal weight change HEMATOLOGIC/LYMPHATIC: No anemia, easy bleeding, or history of blood clots ALLERGIC/IMMUNOLOGIC: No hives or skin allergy 04/08/18 14:52 Is the patient limited Pakistani proficient: No *Physical Exam - Vital Signs Last Vital Signs Temp Pulse Resp BP Pulse Ox 98 F 63 18 109/76 100 04/08/18 13:45 04/08/18 13:45 04/08/18 13:45 04/08/18 13:45 04/08/18 13:45 - Physical Exam Comments: GENERAL: Awake, alert, and fully oriented, in no acute distress HEAD: No signs of trauma, normocephalic, atraumatic EYES: PERRLA, EOMI, sclera anicteric, conjunctiva clear ENT: Hearing grossly normal, nares patent, oropharynx clear without exudates. Moist mucosa LUNGS: No distress, speaks full sentences, clear to auscultation bilaterally HEART: Regular rate and rhythm, normal S1 and S2, feint systolic ejection murmur appreciated, peripheral pulses normal and equal bilaterally ABDOMEN: Soft, nontender, normoactive bowel sounds. No guarding, no rebound. No masses EXTREMITIES : Normal inspection, Normal range of motion, no edema. No clubbing or cyanosis NEUROLOGICAL: Cranial nerves II through XII grossly intact. Normal speech, normal gait, no focal sensorimotor deficits SKIN: Warm, Dry, normal turgor, no rashes or lesions noted 04/08/18 14:52 Moderate Sedation - Procedure Monitoring Vital Signs: Procedure Monitoring Vital Signs Temperature 98 F 04/08/18 13:45 Pulse Rate 63 04/08/18 13:45 Respiratory Rate 18 04/08/18 13:45 Blood Pressure 109/76 04/08/18 13:45 O2 Sat by Pulse Oximetry (%) 100 04/08/18 13:45 ED Treatment Course - LABORATORY CBC & Chemistry Diagram: 04/08/18 14:40 04/08/18 14:40 - RADIOLOGY Radiology Studies Ordered: Category Date Time Status CHEST X-RAY PORTABLE* [RAD] Stat Radiology 04/08/18 14:25 Ordered Medical Decision Making - Medical Decision Making The patient is a 87M w/ a history of NSTEMI, HTN, HLD who presents for evaluation of transient dizziness ED Course CMP, CBC, Cardiac enzymes, coags, UA ECG CXR 04/08/18 14:50 Lytes wnl no leukocytosis Trop I neg CXR w/o acute pathology ECG w/ LBBB w/o evidence of acute ischemia 04/08/18 16:03 Cr 1.4 (0.6 last year) Will obtain orthostatics Plan for admission to tele obs Dispo: Admit 04/08/18 16:[address] 04/08/18 18:35 *DC/Admit/Observation/Transfer Diagnosis at time of Disposition: Lightheaded - Discharge Dispostion Condition at time of disposition: Good Decision to Admit order: Yes - Referrals - Patient Instructions - Post Discharge Activity
[2018-04-08 15:17] LABS: HEMATOCRIT 41.9 % (35.4-49); HEMOGLOBIN 14.8 GM/dL (11.7-16.9); MCH 33.3 pg (25.7-33.7); MCHC 35.4 g/dl (32.0-35.9); MEAN CELL VOLUME 93.9 fl (80-96); MEAN PLT VOLUME 9.4 fl (7.5-11.1); PLATELET COUNT 262 K/MM3 (134-434); RBC 4.46 M/mm3 (4.00-5.60); RDW 13.4 % (11.9-15.9); WHITE BLOOD COUNT 10.3 K/mm3 (4.0-10.0)
--- NOTE | 2018-04-08 15:33 | PDOC ---
Attending Attestation - Resident Resident Name: Roel Delaney - ED Attending Attestation I have performed the following: I have examined & evaluated the patient, The case was reviewed & discussed with the resident, I agree w/resident's findings & plan - HPI HPI: 04/08/18 15:29 87-year-old male with history of coronary artery disease and stents presents with episode of lightheadedness during yoga [place] a detention facility. Patient did not feel overexerted, but does note that there were several positional changes (bending down and standing up) and eventually developed lightheadedness that persisted until EMS arrived. There was no actual loss of consciousness, no chest pain or palpitations, no diaphoresis or nausea. At baseline, he reports no exercise limitations or chest pain or dyspnea on exertion, denies any changes in his medications recently. Currently asymptomatic, denies any other recent metabolic or infectious complaints. - Physicial Exam PE: 04/08/18 15:31 Vital signs normal Well-appearing, conversant, no acute distress Heart is regular with subtle 2/6 systolic ejection murmur Lungs are clear, slightly decreased at the left base Abdomen benign No edema - Medical Decision Making 04/08/18 15:31 87-year-old male with history of CAD presents with lightheadedness during exertion, no chest pain. Given history will rule out arrhythmia or anginal equivalent, EKG so his baseline left bundle and vital signs are normal. Labs, urinalysis Chest x-ray, EKG Will need observation on telemetry for further informatics application analyst Heart Score/ECG Review #1 ECG reviewed & interpreted by me at: 13:51 General ECG Interpretation: Sinus Rhythm, Normal Rate (62), Normal Intervals ( LBBB), No acute ischemic changes Compared to previous ECG there are: No significant change (12/06/16)
[2018-04-08 15:49] LABS: ALBUMIN 3.4 g/dl (3.4-5.0); ALK PHOS 98 U/L (45-117); ANION GAP 9 MMOL/L (8-16); BILIRUBIN,TOTAL 0.4 mg/dL (0.2-1); BLOOD UREA NITROGEN 18 mg/dL (7-18); CALCIUM 8.2 mg/dL (8.5-10.1); CHLORIDE 100 mmol/L (98-107); CO2 25 mmol/L (21-32); CREATININE 1.4 mg/dL (0.55-1.3); GLUCOSE,RANDOM 91 mg/dL (74-106); POTASSIUM 3.9 mmol/L (3.5-5.1); SGOT/AST 16 U/L (15-37); SGPT/ALT 23 U/L (13-61); SODIUM 134 mmol/L (136-145); TOT PROT 6.5 g/dl (6.4-8.2)
[2018-04-08 16:09] LABS: INR 1.13 (0.83-1.09); PROTHROMBIN TIME (PATIENT) 13.4 SEC (9.7-13.0)
[2018-04-08] MEDS ORDERED: ACETAMINOPHEN 325 MG TABLET (FP) PO PRN (17:01)
--- NOTE | 2018-04-08 17:05 | HP ---
Admitting History and Physical - Primary Care Physician PCP: Fernanda Stratton - Admission Chief Complaint: I felt weak History of Present Illness: Mr Bowens is a pleasant 87 year old male who complains of feeling weak. Patient is unclear in his history at time so difficult to ascertain exactly what his symptoms were. He says that he was at the park doing yoga and about 30 minutes into it he began to feel weak. He says it was a whole body weakness. He says it felt more like a tired/fatigue than loss of motor function. He cannot tell me how long it lasted, but that he was sat down and the ambulance was called to bring him in. He endorsed to the ED staff that he was feeling lightheaded but it only lasted a few seconds. To me he denied lightheadedness. He denies fevers , chills, passing out, chest pain or pressure, shortness of breath, nausea, vomiting, abdominal pain, constipation, difficulty or pain on urination, or swelling. He says he is constipated and would like a stool softener. He says currently he feels fine and wondering how long he needs to be here. 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: Dementia (very mild) Cardiovascular: Yes: HTN, Hyperlipdemia Gastrointestinal: Yes: Diverticulitis, GERD Hepatobiliary: Yes: Cholelithiasis Infectious Disease: Yes: Other (tic dz) Musculoskeletal: Yes: Osteoarthritis - Past Surgical History Past Surgical History: Yes: Joint Replacement, Stent - Smoking History Smoking history: Never smoked Have you smoked in the past 12 months: No If you are a former smoker, when did you quit?: 35YRS AGO - Alcohol/Substance Use Hx Alcohol Use: No - Social History ADL: Independent History of Recent Travel: No Home Medications - Allergies Allergies/Adverse Reactions: Allergies Allergy/AdvReac Type Severity Reaction Status Date / Time No Known Drug Allergies Allergy Verified 04/08/13 10:45 - Home Medications Home Medications: Ambulatory Orders Aspirin Coated [Ecotrin -] 81 mg PO DAILY 01/14/12 Metoprolol Succinate [Toprol XL -] 25 mg PO DAILY #1 tab.sr.24h 04/13/13 Pravastatin Sodium [Pravachol -] 20 mg PO HS 09/08/15 Omeprazole [Prilosec (RX)] 40 mg PO DAILY 04/08/18 Family Disease History - Family Disease History Family Disease History: [place]: Brother, Sister Review of Systems Findings/Remarks: Full review of systems obtained, as per HPI and otherwise negative. Physical Examination Vital Signs: Vital Signs Temperature 36.6 C 04/08/18 13:45 Pulse Rate 62 04/08/18 16:58 Respiratory Rate 16 04/08/18 16:58 Blood Pressure 139/85 04/08/18 16:58 O2 Sat by Pulse Oximetry (%) 96 04/08/18 16:58 Constitutional: Yes: Well Nourished, No Distress, Calm Eyes: Yes: Conjunctiva Clear, EOM Intact, PERRL HENT: Yes: Atraumatic, Normocephalic Cardiovascular: Yes: Regular Rate and Rhythm. No: Gallop, Murmur, Rub Respiratory: Yes: Regular, CTA Bilaterally. No: Rales, Rhonchi, Wheezes Gastrointestinal: Yes: Normal Bowel Sounds, Soft. No: Distention, Tenderness Extremities: Yes: WNL Edema: No Labs: CBC, BMP 04/08/18 14:40 04/08/18 14:40 Imaging - Results Chest X-ray: Report Reviewed, Image Reviewed EKG: Image Reviewed Problem List - Problems (1) Pre-syncope Assessment/Plan: -symptoms most consistent with pre-syncope -however possible chest pain equivalent considering history and dementia -admit to telemetry observation -cardiac enzymes x3 -head CT -ECHO -PT consult -cardiology consult -check orthostatics Code(s): R55 - SYNCOPE AND COLLAPSE (2) JO (acute kidney injury) Assessment/Plan: -suspect dehydration -IVF -recheck in am Code(s): N17.9 - ACUTE KIDNEY FAILURE, UNSPECIFIED (3) CAD (coronary artery disease) Assessment/Plan: -no complaint of chest pain -cardiac enzymes x3 -ECHO as above -continue aspirin, toprol xl, and statin Code(s): I25.10 - ATHSCL HEART DISEASE OF [place] CORONARY ARTERY W/O ANG PCTRS (4) HTN (hypertension) Assessment/Plan: -low normal -gentle hydration -monitor Code(s): I10 - ESSENTIAL (PRIMARY) HYPERTENSION (5) Dementia Assessment/Plan: -monitor Code(s): F03.90 - UNSPECIFIED DEMENTIA WITHOUT BEHAVIORAL DISTURBANCE Qualifiers: Dementia type: unspecified type Dementia behavioral disturbance: without behavioral disturbance Qualified Code(s): F03.90 - Unspecified dementia without behavioral disturbance
[2018-04-08] MEDS ORDERED: SODIUM CHLORIDE 1,000 ML IV SCH (17:15)
[2018-04-08] MEDS: ATORVASTATIN CA 10 MG TABLET (FP) PO SCH (21:56)
[2018-04-08] MEDS: DOCUSATE SODIUM 100 MG CAPSULE (FP) PO SCH (21:56)
[2018-04-08] MEDS: POLYETHYLENE GLYCOL 3350 119 GM BTL PO SCH (21:56)
[2018-04-09 01:04] VITALS: BMI 27.6
[2018-04-09 06:25] LABS: BASO % 0.5 % (0-2.0); EOS % 1.3 % (0-4.5); HEMOGLOBIN 14.6 GM/dL (11.7-16.9); LYMPH % 14.4 % (8-40); MCH 31.2 pg (25.7-33.7); MCHC 33.3 g/dl (32.0-35.9); MEAN CELL VOLUME 93.7 fl (80-96); MEAN PLT VOLUME 9.1 fl (7.5-11.1); MONO % 9.9 % (3.8-10.2); NEUT % 73.9 % (42.8-82.8); PLATELET COUNT 244 K/MM3 (134-434); RDW 13.3 % (11.9-15.9); WHITE BLOOD COUNT 9.8 K/mm3 (4.0-10.0)
[2018-04-09 06:57] LABS: INR 1.1 (0.83-1.09)
[2018-04-09 07:00] LABS: ANION GAP 10 MMOL/L (8-16); BLOOD UREA NITROGEN 13 mg/dL (7-18); CALCIUM 8.3 mg/dL (8.5-10.1); CHLORIDE 102 mmol/L (98-107); CO2 24 mmol/L (21-32); GLUCOSE,RANDOM 84 mg/dL (74-106); MAGNESIUM 1.5 mg/dL (1.8-2.4); PHOSPHOROUS 3.2 mg/dL (2.5-4.9); POTASSIUM 3.8 mmol/L (3.5-5.1); SODIUM 136 mmol/L (136-145)
[2018-04-09] MEDS ORDERED: MAGNESIUM SULF 50% (8.12 MEQ/2 ML-1 GM VIAL) IVPB ONE (08:30)
[2018-04-09] MEDS: DOCUSATE SODIUM 100 MG CAPSULE (FP) PO SCH ×2 (09:15→22:51)
[2018-04-09] MEDS: ASPIRIN COATED 81 MG TABLET.EC PO SCH (09:15)
[2018-04-09] MEDS: PANTOPRAZOLE 40 MG TABLET (FP) PO SCH (09:15)
[2018-04-09] MEDS: POLYETHYLENE GLYCOL 3350 119 GM BTL PO SCH ×2 (09:16→22:41)
--- NOTE | 2018-04-09 10:18 | EKG ---
Test Reason : Blood Pressure : / mmHG Vent. Rate : 062 BPM Atrial Rate : 062 BPM P-R Int : 162 ms QRS Dur : 156 ms QT Int : 514 ms P-R-T Axes : 031 -19 152 degrees QTc Int : 521 ms NORMAL SINUS RHYTHM LEFT BUNDLE BRANCH BLOCK NONSPECIFIC ST ABNORMALITY ABNORMAL ECG Confirmed by LISETH WOOD MD ([id number]) on 04/09/2018 10:18:21 AM Referred By: Confirmed By:LISETH WOOD MD
--- NOTE | 2018-04-09 11:14 | CON.CARD ---
Cardiology Consult (text) - Consultation Consultation Note: Chief Complaint: weakness History of Present Illness: 87 yo male here with fwe days of generalized weakness. Also mentioned some mild dizziness. no cp sob palps loc pnd orthopnea le edema. Got ivfs and now feels well, asking to go home. PMH: HTN HPL afib cad knee surgery no cigs - Alcohol/Substance Use Hx Alcohol Use: No - Smoking History Smoking history: Never smoked Have you smoked in the past 12 months: No Home Medications - Allergies Allergies/Adverse Reactions: Allergies Allergy/AdvReac Type Severity Reaction Status Date / Time No Known Drug Allergies Allergy Verified 04/08/13 10:45 - Home Medications Home Medications Medication Instructions Recorded Aspirin Coated [Ecotrin -] 81 mg PO DAILY 01/14/12 Metoprolol Succinate [Toprol XL -] 25 mg PO DAILY #1 tab.sr.24h 04/13/13 Pravastatin Sodium [Pravachol -] 20 mg PO HS 09/08/15 Omeprazole [Prilosec (RX)] 40 mg PO DAILY 04/08/18 - Family Disease History Family History: Denies (no cmp) Review of Systems - Review of Systems Constitutional: denies: Chills, Fever Eyes: denies: Eye Pain HENT: denies: Nasal Congestion Neck: denies: Stiffness Cardiovascular: denies: Palpitations Respiratory: denies: Orthopnea, PND Gastrointestinal: denies: Rectal Bleeding Genitourinary: denies: Burning, Hematuria Integumentary: denies: Rash Neurological: denies: Numbness, Seizure Endocrine: denies: Excessive Sweating Hematology/Lymphatic: denies: Excessive Bleeding Vital Signs: Vital Signs Period Temp Pulse Resp BP Sys/Osman Pulse Ox Last 24 Hr 97.7 F-98.3 F 62-67 16-20 109-179/76-96 96-100 Constitutional: Yes: Well Nourished, No Distress Eyes: No: Sclera Icterus HENT: No: Nasal Congestion Neck: No: Decreased ROM Respiratory: Yes: CTA Bilaterally. No: Accessory Muscle Use, Rales, Wheezes Gastrointestinal: Yes: Normal Bowel Sounds. No: Distention, Hepatomegaly, Palpable Mass, Tenderness Cardiovascular: Yes: Regular Rate and Rhythm JVD: No Carotid Bruit: No PMI: Non-Displaced Heart Sounds: Yes: S1, S2. No: Gallop Murmur: No: Systolic Murmur, Diastolic Murmur Extremities: No: Cold, Cyanosis Edema: No Peripheral Pulses: 2+ Left Carotid, 2+ Right Carotid, 2+ Left Doralis Pedis, 2+ Right Dorsalis Pedis Integumentary: No: Jaundice diaphoresis Neurological: Yes: Alert, Oriented (x3) Psychiatric: No: Agitated - Other Data Labs, Other Data: Laboratory Last Values WBC 9.8 K/mm3 (4.0-10.0) 04/09/18 05:30 RBC 4.70 M/mm3 (4.00-5.60) 04/09/18 05:30 Hgb 14.6 GM/dL (11.7-16.9) 04/09/18 05:30 Hct 44.0 % (35.4-49) 04/09/18 05:30 MCV 93.7 fl (80-96) 04/09/18 05:30 MCH 31.2 pg (25.7-33.7) 04/09/18 05:30 MCHC 33.3 g/dl (32.0-35.9) 04/09/18 05:30 RDW 13.3 % (11.9-15.9) 04/09/18 05:30 Plt Count 244 K/MM3 (134-434) 04/09/18 05:30 MPV 9.1 fl (7.5-11.1) 04/09/18 05:30 Absolute Neuts (auto) 7.2 K/mm3 (1.5-8.0) 04/09/18 05:30 Neutrophils % 73.9 % (42.8-82.8) 04/09/18 05:30 Lymphocytes % 14.4 % (8-40) D 04/09/18 05:30 Monocytes % 9.9 % (3.8-10.2) 04/09/18 05:30 Eosinophils % 1.3 % (0-4.5) 04/09/18 05:30 Basophils % 0.5 % (0-2.0) 04/09/18 05:30 Nucleated RBC % 0 % (0-0) 04/09/18 05:30 PT with INR 13.00 SEC (9.7-13.0) 04/09/18 05:30 INR 1.10 (0.83-1.09) H 04/09/18 05:30 PTT (Actin FS) 27.0 SECONDS (25.2-36.5) 04/08/18 14:40 Sodium 136 mmol/L (136-145) 04/09/18 05:30 Potassium 3.8 mmol/L (3.5-5.1) 04/09/18 05:30 Chloride 102 mmol/L (98-107) 04/09/18 05:30 Carbon Dioxide 24 mmol/L (21-32) 04/09/18 05:30 Anion Gap 10 MMOL/L (8-16) 04/09/18 05:30 BUN 13 mg/dL (7-18) 04/09/18 05:30 Creatinine 1.0 mg/dL (0.55-1.3) 04/09/18 05:30 Creat Clearance w eGFR > 60 (>60) 04/09/18 05:30 Random Glucose 84 mg/dL (74-106) 04/09/18 05:30 Calcium 8.3 mg/dL (8.5-10.1) L 04/09/18 05:30 Phosphorus 3.2 mg/dL (2.5-4.9) 04/09/18 05:30 Magnesium 1.5 mg/dL (1.8-2.4) L 04/09/18 05:30 Total Bilirubin 0.4 mg/dL (0.2-1) 04/08/18 14:40 AST 16 U/L (15-37) 04/08/18 14:40 ALT 23 U/L (13-61) 04/08/18 14:40 Alkaline Phosphatase 98 U/L (45-117) 04/08/18 14:40 Creatine Kinase 42 IU/L (26-308) 04/09/18 05:30 Troponin I 0.02 ng/ml (0.00-0.05) 04/09/18 05:30 Total Protein 6.5 g/dl (6.4-8.2) 04/08/18 14:40 Albumin 3.4 g/dl (3.4-5.0) 04/08/18 14:40 Triglycerides 74 mg/dL (0-150) 04/09/18 05:30 Cholesterol 124 mg/dL (50-200) 04/09/18 05:30 Total LDL Cholesterol 80 mg/dL (5-100) 04/09/18 05:30 HDL Cholesterol 39 mg/dL (40-60) L 04/09/18 05:30 tele: sr echo 08/2016: low nl lvef, nl rv, mild tr cxr: clear lungs ecg: sr, nl pr, old lbbb echo 11/2016: nl lvef, apicalseptal AK, nl rv size, mild mr, mild tr, nl rvsp dypiridamole stress 11/2016: resting ekg: afib with LBBB. moderate zone of inferolateral infarct with kaylah-infarct ischemia and associated wma. small area of apical /anteroapical ischemia. EF 37%. Assessment/Plan weakness, dizzy: -resolved, likely due to dehydration -no signs acs, chf, new arrhythmia -echo pending, if benign then ok for dc from cardiac pov hx cad s/p pci 2012, NSTEMI 11/2016 (managed medically due to pos bld cxs then): -prior stress test with low risk findings -no signs acs here, no anginal sxs -echo pending -cont bb, statin, ac afib: -found here when admitted 11/2016 -currently in sr, cont bb -CHADS VASC = 4, merits custodial AC for stroke prevention unless strong contraindication exists (pt denies h/o PUD, GIB, chronic dizzy or falls). He was on AC during admit 11/2016 but had not been taking at home. Would dc asa and start eliquis 5 bid. HTN: -stable echo pending, if benign then ok for dc from cardiac pov, should have outpt cardio f/u
--- NOTE | 2018-04-09 14:09 | PN ---
Progress Note, Physician Chief Complaint: Mr Bowens denies cp, sob, n/v. Eager to be discharged. - Current Medication List Current Medications: Active Medications Acetaminophen (Tylenol -) 650 mg PO Q4H PRN PRN Reason: FEVER Apixaban (Eliquis -) 5 mg PO BID [facility] Aspirin (Ecotrin -) 81 mg PO DAILY [facility] Last Admin: 04/09/18 09:15 Dose: 81 mg Atorvastatin Calcium (Lipitor -) 10 mg PO HS [facility] Last Admin: 04/08/18 21:56 Dose: 10 mg Docusate Sodium (Colace -) 100 mg PO BID [facility] Last Admin: 04/09/18 09:15 Dose: 100 mg Lisinopril (Prinivil) 5 mg PO DAILY [facility] Metoprolol Succinate (Toprol Xl -) 50 mg PO DAILY [facility] Last Admin: 04/09/18 12:35 Dose: 50 mg Pantoprazole Sodium (Protonix -) 40 mg PO DAILY [facility] Last Admin: 04/09/18 09:15 Dose: 40 mg Polyethylene Glycol (Miralax (For Daily Use) -) 17 gm PO BID [facility] Last Admin: 04/09/18 09:16 Dose: Not Given - Objective Vital Signs: Vital Signs Temperature 36.3 C L 04/09/18 10:00 Pulse Rate 70 04/09/18 10:00 Respiratory Rate 20 04/09/18 10:00 Blood Pressure 132/89 04/09/18 10:00 O2 Sat by Pulse Oximetry (%) 97 04/09/18 08:26 Constitutional: Yes: Well Nourished, No Distress, Calm Cardiovascular: Yes: Regular Rate and Rhythm. No: Gallop, Murmur, Rub Respiratory: Yes: Regular, CTA Bilaterally. No: Rales, Rhonchi, Wheezes Gastrointestinal: Yes: Normal Bowel Sounds, Soft. No: Distention, Tenderness Extremities: Yes: WNL Edema: No Labs: CBC, BMP 04/09/18 05:30 04/09/18 05:30 INR, PTT INR 1.10 (0.83-1.09) H 04/09/18 05:30 Problem List - Problems (1) Pre-syncope Code(s): R55 - SYNCOPE AND COLLAPSE (2) JO (acute kidney injury) Code(s): N17.9 - ACUTE KIDNEY FAILURE, UNSPECIFIED (3) CAD (coronary artery disease) Code(s): I25.10 - ATHSCL HEART DISEASE OF [place] CORONARY ARTERY W/O ANG PCTRS (4) HTN (hypertension) Code(s): I10 - ESSENTIAL (PRIMARY) HYPERTENSION (5) Dementia Code(s): F03.90 - UNSPECIFIED DEMENTIA WITHOUT BEHAVIORAL DISTURBANCE Qualifiers: Dementia type: unspecified type Dementia behavioral disturbance: without behavioral disturbance Qualified Code(s): F03.90 - Unspecified dementia without behavioral disturbance (6) Atrial fibrillation Code(s): I48.91 - UNSPECIFIED ATRIAL FIBRILLATION Qualifiers: Atrial fibrillation type: paroxysmal Qualified Code(s): I48.0 - Paroxysmal atrial fibrillation Assessment/Plan (1) Pre-syncope Assessment/Plan: -ECHO is positive and changed from last year -case d/w cardiology -start lisinopril -continue toprol xl -has history of afib, possible contribution -monitor today on telemetry -begin eliquis -if stable, discharge tomorrow Code(s): R55 - SYNCOPE AND COLLAPSE (2) JO (acute kidney injury) Assessment/Plan: -resolved Code(s): N17.9 - ACUTE KIDNEY FAILURE, UNSPECIFIED (3) CAD (coronary artery disease) Assessment/Plan: -event in past year but not current -medications as above Code(s): I25.10 - ATHSCL HEART DISEASE OF [place] CORONARY ARTERY W/O ANG PCTRS (4) HTN (hypertension) Assessment/Plan: -stop IVF, hypertensive this am Code(s): I10 - ESSENTIAL (PRIMARY) HYPERTENSION (5) Dementia Assessment/Plan: -monitor Code(s): F03.90 - UNSPECIFIED DEMENTIA WITHOUT BEHAVIORAL DISTURBANCE Qualifiers: Dementia type: unspecified type Dementia behavioral disturbance: without behavioral disturbance Qualified Code(s): F03.90 - Unspecified dementia without behavioral disturbance
[2018-04-09] MEDS: LISINOPRIL 5 MG TABLET (FP) PO SCH (14:45)
[2018-04-09] MEDS: ATORVASTATIN CA 10 MG TABLET (FP) PO SCH (22:51)
[2018-04-09] MEDS: APIXABAN 5 MG TABLET PO SCH (22:51)
[2018-04-10 06:47] LABS: EOS % 2.5 % (0-4.5); HEMATOCRIT 41.8 % (35.4-49); HEMOGLOBIN 13.9 GM/dL (11.7-16.9); LYMPH % 19.4 % (8-40); MCH 31.5 pg (25.7-33.7); MCHC 33.2 g/dl (32.0-35.9); MEAN CELL VOLUME 94.8 fl (80-96); MEAN PLT VOLUME 9.3 fl (7.5-11.1); MONO % 10.9 % (3.8-10.2); NEUT % 66.2 % (42.8-82.8); PLATELET COUNT 238 K/MM3 (134-434); RBC 4.41 M/mm3 (4.00-5.60); RDW 13.5 % (11.9-15.9); WHITE BLOOD COUNT 8.5 K/mm3 (4.0-10.0)
[2018-04-10 06:51] LABS: ANION GAP 9 MMOL/L (8-16); BLOOD UREA NITROGEN 12 mg/dL (7-18); CALCIUM 8.3 mg/dL (8.5-10.1); CHLORIDE 102 mmol/L (98-107); CO2 24 mmol/L (21-32); CREATININE 1.1 mg/dL (0.55-1.3); GLUCOSE,RANDOM 79 mg/dL (74-106); POTASSIUM 3.8 mmol/L (3.5-5.1); SODIUM 135 mmol/L (136-145)
[2018-04-10] MEDS: ASPIRIN COATED 81 MG TABLET.EC PO SCH (09:14)
[2018-04-10] MEDS: APIXABAN 5 MG TABLET PO SCH (09:14)
[2018-04-10] MEDS: LISINOPRIL 5 MG TABLET (FP) PO SCH (09:14)
[2018-04-10] MEDS: DOCUSATE SODIUM 100 MG CAPSULE (FP) PO SCH (09:14)
[2018-04-10] MEDS: POLYETHYLENE GLYCOL 3350 119 GM BTL PO SCH (09:14)
[2018-04-10] MEDS: PANTOPRAZOLE 40 MG TABLET (FP) PO SCH (09:14)
[2018-04-10 09:49] VITALS: BP 135/72; PULSE 67; TEMP 98.3
--- NOTE | 2018-04-10 10:29 | PN ---
Progress Note (short form) - Note Progress Note: Chief Complaint: weakness s: no chest pain, palps, dizzy, lightheadedness. wants to go home History of Present Illness: Current Medications Acetaminophen (Tylenol -) 650 mg PO Q4H PRN PRN Reason: FEVER Apixaban (Eliquis -) 5 mg PO BID [facility] Last Admin: 04/10/18 09:14 Dose: 5 mg Aspirin (Ecotrin -) 81 mg PO DAILY [facility] Last Admin: 04/10/18 09:14 Dose: 81 mg Atorvastatin Calcium (Lipitor -) 10 mg PO HS [facility] Last Admin: 04/09/18 22:51 Dose: 10 mg Docusate Sodium (Colace -) 100 mg PO BID [facility] Last Admin: 04/10/18 09:14 Dose: 100 mg Lisinopril (Prinivil) 5 mg PO DAILY [facility] Last Admin: 04/10/18 09:14 Dose: 5 mg Metoprolol Succinate (Toprol Xl -) 50 mg PO DAILY [facility] Last Admin: 04/10/18 09:14 Dose: 50 mg Pantoprazole Sodium (Protonix -) 40 mg PO DAILY [facility] Last Admin: 04/10/18 09:14 Dose: 40 mg Polyethylene Glycol (Miralax (For Daily Use) -) 17 gm PO BID [facility] Last Admin: 04/10/18 09:14 Dose: 17 grams Vital Signs: Vital Signs Period Temp Pulse Resp BP Sys/Osman Pulse Ox Last 24 Hr 97.4 F-98.4 F 61-96 20-20 108-158/52-88 97-97 Constitutional: Yes: Well Nourished, No Distress Eyes: No: Sclera Icterus HENT: No: Nasal Congestion Neck: No: Decreased ROM Respiratory: Yes: CTA Bilaterally. No: Accessory Muscle Use, Rales, Wheezes Gastrointestinal: Yes: Normal Bowel Sounds. No: Distention, Hepatomegaly, Palpable Mass, Tenderness Cardiovascular: Yes: Regular Rate and Rhythm JVD: No Carotid Bruit: No PMI: Non-Displaced Heart Sounds: Yes: S1, S2. No: Gallop Murmur: No: Systolic Murmur, Diastolic Murmur Extremities: No: Cold, Cyanosis Edema: No Peripheral Pulses: 2+ Left Carotid, 2+ Right Carotid, 2+ Left Doralis Pedis, 2+ Right Dorsalis Pedis Integumentary: No: Jaundice diaphoresis Neurological: Yes: Alert, Oriented (x3) Psychiatric: No: Agitated tele: sr echo 08/2016: low nl lvef, nl rv, mild tr cxr: clear lungs ecg: sr, nl pr, old lbbb echo 11/2016: nl lvef, apicalseptal AK, nl rv size, mild mr, mild tr, nl rvsp dypiridamole stress 11/2016: resting ekg: afib with LBBB. moderate zone of inferolateral infarct with kaylah-infarct ischemia and associated wma. small area of apical /anteroapical ischemia. EF 37%. echo 03/2018 LV functino severely reduced, EF 25-30%, severe global hypok of LV , mild TR, RVSP nl, mild ao root dilation Assessment/Plan Cardiomyopathy - echo shows sev reduced lvef, new from echo from 11/2016 - cont toprol, lisinopril 5 mg daily started - no events on tele - will need outpatient ischemic evaluation weakness, dizzy: -resolved, likely due to dehydration -no signs acs, chf, new arrhythmia hx cad s/p pci 2012, NSTEMI 11/2016 (managed medically due to pos bld cxs then): -prior stress test with low risk findings -no signs acs here, no anginal sxs -echo pending -cont bb, statin, ac afib: -found here when admitted 11/2016 -currently in sr, cont bb -CHADS VASC = 4, merits correction AC for stroke prevention unless strong contraindication exists (pt denies h/o PUD, GIB, chronic dizzy or falls). He was on AC during admit 11/2016 but had not been taking at home - continue eliquis 5 mg BID HTN: -stable
--- NOTE | 2018-04-10 11:33 | DS ---
Physical Examination Vital Signs: Vital Signs Temperature 36.8 C 04/10/18 09:47 Pulse Rate 67 04/10/18 09:47 Respiratory Rate 20 04/10/18 09:47 Blood Pressure 135/72 04/10/18 09:47 O2 Sat by Pulse Oximetry (%) 97 04/10/18 09:00 Constitutional: Yes: Well Nourished, No Distress, Calm Cardiovascular: Yes: Regular Rate and Rhythm. No: Gallop, Murmur, Rub Respiratory: Yes: Regular, CTA Bilaterally. No: Rales, Rhonchi, Wheezes Gastrointestinal: Yes: Normal Bowel Sounds, Soft. No: Distention, Tenderness Extremities: Yes: WNL Edema: No Labs: CBC, BMP 04/10/18 05:30 04/10/18 05:30 Discharge Summary Reason For Visit: LIGHT JEADEDNESS,ACUTE CORONARY SYNDROME Current Active Problems JO (acute kidney injury) (Acute) Atrial fibrillation (Acute) CAD (coronary artery disease) (Acute) HTN (hypertension) (Acute) Lightheaded (Acute) Pre-syncope (Acute) Hospital Course: (1) Pre-syncope Code(s): R55 - SYNCOPE AND COLLAPSE (2) JO (acute kidney injury) Code(s): N17.9 - ACUTE KIDNEY FAILURE, UNSPECIFIED (3) CAD (coronary artery disease) Code(s): I25.10 - ATHSCL HEART DISEASE OF [place] CORONARY ARTERY W/O ANG PCTRS (4) HTN (hypertension) Code(s): I10 - ESSENTIAL (PRIMARY) HYPERTENSION (5) Dementia Code(s): F03.90 - UNSPECIFIED DEMENTIA WITHOUT BEHAVIORAL DISTURBANCE Qualifiers: Dementia type: unspecified type Dementia behavioral disturbance: without behavioral disturbance Qualified Code(s): F03.90 - Unspecified dementia without behavioral disturbance (6) Atrial fibrillation Code(s): I48.91 - UNSPECIFIED ATRIAL FIBRILLATION Qualifiers: Atrial fibrillation type: paroxysmal Qualified Code(s): I48.0 - Paroxysmal atrial fibrillation Mr Bowens is a very pleasant 87 year old male who came in with presyncope. He was admitted to telemetry under observation. He was seen by cardiology. He was noted to have atrial fibrillation in the past and it was recommended for him to be started on anticoagulation but he was discharged without it. Because of this he had a head CT and it was negative for stroke. He was also monitored on telemetry and remained in sinus rhythm. He had an ECHO that was abnormal from last year, case d/w cardiology and he was started on lisinopril and monitored. He is currently stable and cleared for discharge. Case d/w Dr Victor before discharge. 33 minutes spent in preparation of this discharge Condition: Good - Instructions Diet, Activity, Other Instructions: resume previous diet and activity Referrals: Stephanie Chambers MD [Primary Care Provider] - Disposition: HOME - Home Medications Comprehensive Discharge Medication List: Ambulatory Orders Aspirin Coated [Ecotrin -] 81 mg PO DAILY 01/14/12 Pravastatin Sodium [Pravachol -] 20 mg PO HS 09/08/15 Omeprazole [Prilosec (RX)] 40 mg PO DAILY 04/08/18 Apixaban [Eliquis -] 5 mg PO BID #60 tablet 04/10/18 Lisinopril [Prinivil] 5 mg PO DAILY #30 tablet 04/10/18 Metoprolol Succinate [Toprol XL -] 50 mg PO DAILY #30 tab.sr.24h 04/10/18
== END 2018-04-10 15:48 | disposition home or self-care (01) ==
LOC: JER 13:45 → JERBED 16:27 → J4W 19:40
PROVIDERS: ADMIT Internal Medicine; ATTEND Internal Medicine
PROC: 3E0337Z Introduction of Electrolytic and Water Balance Substance into Peripheral Vein, Percutaneous Approach (ICD-10-PCS; principal; 2018-04-08)
PROC: 3E033GC Introduction of Other Therapeutic Substance into Peripheral Vein, Percutaneous Approach (ICD-10-PCS; 2018-04-08)
DX: R55 Syncope and collapse (principal); I25.10 Atherosclerotic heart disease of native coronary artery without angina pectoris; I10 Essential (primary) hypertension; Z95.5 Presence of coronary angioplasty implant and graft; N17.9 Acute kidney failure, unspecified; I25.2 Old myocardial infarction; I48.91 Unspecified atrial fibrillation; Z79.01 Long term (current) use of anticoagulants; F03.90 Unspecified dementia, unspecified severity, without behavioral disturbance, psychotic disturbance, mood disturbance, and anxiety; E78.5 Hyperlipidemia, unspecified; M19.90 Unspecified osteoarthritis, unspecified site; Z87.19 Personal history of other diseases of the digestive system
CPT/HCPCS: 36415; 70450-TC; 71045-TC-FY; 80048; 80053; 80061; 82550; 83721; 83735; 84100; 84484; 85025; 85027; 85610; 85730; 93005; 93010; 93306-TC; 96361; 96374; 97116-GP; 97161-GP; 99283-25; G0378; J7030